=== PATIENT | female | born 1935 | race Caucasian/White ===

== ENCOUNTER 2017-10-14 21:53 | Observation (INO) | payer MEDICARE, OTHER ==
[~2017-10-14] VITALS: Ht 160 cm; Wt 71.8 kg
[~2017-10-14 21:53] MED LIST: ALBU90OI INH; AMLO5; AMLO5 PO; ASPI325EC; ASPI81CH PO; ATOR10; ATOR10 PO; CARV6.25 PO; Clonidine HCl0.1 MG PO; DILT120 PO; DOCSEN PO; ELIQUIS5 MG PO; ESOM20; ESOM20 PO; GABA100 PO; GI COCKTAIL; HYDACE10 PO; HYDACE5 PO; HYDHCL25 PO; Hydrochlorothia25 MG PO; IBUP600 PO; LAVAP17G PO; LEVFLO500 PO; LISI5 PO; Lasix40 MG PO; MAGOXI400 PO; METO25; METR500 PO; MULVITMINE; Micro-K10 MEQ PO; NITR.4SL SL; Omeprazole20 M1 PO; PARO20 PO; PARO25; PARO30 PO; POTCHL10ER; POTCHL20ER PO; PROM25 PO; QUININE; RABE20; RANI150; SPIR25 PO; TELM80 PO; Ultram50 MG PO; Verotin-Gr Cap1 EACH PO; Zithromax250 MG PO; [UNRECOGNIZED DRUG - CODE]
[2017-10-14 22:27] LABS: BASOPHILS ABSOLUTE AUTO 0.03 K/mm3 (0.00-0.23); BASOPHILS PERCENT AUTO 0 % (0-2); EOSINOPHILS PERCENT AUTO 3 % (0-6); Hematocrit 35.3 % (33.0-51.0); Hemoglobin 11.9 g/dL (11.5-16.0); IMMATURE GRAN ABSOLUTE AUTO 0.02 K/mm3 (0.00-0.10); IMMATURE GRAN PERCENT AUTO 0 % (0-1); LYMPHOCYTES ABSOLUTE AUTO 2.62 K/mm3 (0.84-5.20); LYMPHOCYTES PERCENT AUTO 38 % (21-46); MONOCYTES ABSOLUTE AUTO 0.72 K/mm3 (0.16-1.47); MONOCYTES PERCENT AUTO 11 % (4-13); Mean Corpuscular HGB 31.3 pg (26.0-34.0); Mean Corpuscular HGB Conc 33.7 g/dL (31.5-36.5); Mean Corpuscular Volume 93 fL (80-100); Mean Platelet Volume 9.8 fL (9.1-12.4); NEUTROPHILS ABSOLUTE AUTO 3.23 K/mm3 (1.96-9.15); NEUTROPHILS PERCENT AUTO 47 % (41-73); Platelet Count 134 K/mm3 (150-400); RDW Coefficient Variation 13.1 % (11.7-14.2); RDW Standard Deviation 44.2 fL (35.1-46.3); White Blood Cell Count 6.82 K/mm3 (4.00-11.30)
[2017-10-14 22:45] LABS: Alanine Aminotransfer (ALT/SGP 44 U/L (12-78); Albumin, Blood 3.4 g/dL (3.4-5.0); Albumin/Globulin Ratio 0.9 (0.8-1.8); Alk Phos 77 U/L (50-136); Anion Gap 10 mmol/L (6-16); Aspartate Aminotrans (AST/SGOT 38 U/L (12-37); Bilirubin, Total 0.3 mg/dL (0.1-1.0); Blood Urea Nitrogen 19 mg/dL (8-24); Bun/Creatinine Ratio 24.4 (12.0-20.0); CO2, Blood 26 mmol/L (21-32); Calcium, Blood 8.1 mg/dL (8.5-10.1); Chloride, Blood 105 mmol/L (98-108); Creatinine, Blood 0.78 mg/dL (0.40-1.00); Globulin, Blood 3.7 g/dL (2.2-4.0); Glomerular Filtration Rate >60 (60-); Glucose, Blood 150 mg/dL (70-99); Potassium, Blood 3.9 mmol/L (3.5-5.5); Sodium, Blood 141 mmol/L (136-145); Total Protein, Blood 7.1 g/dL (6.4-8.2); Troponin I <0.015 ng/mL (0.000-0.040)
[2017-10-14 23:17] LABS: Source, Urine Clean Catch
[2017-10-14 23:18] LABS: Bilirubin, Urine Neg (Neg); Blood, Urine 1+ (Neg); Glucose Qualitative, Urine Neg (Neg); Ketones, Urine Neg (Neg); Leukocyte Esterase, Urine 1+ (Neg); Nitrite, Urine Neg (Neg); Protein, Urine 1+ (Neg); Urobilinogen, Urine NORM (Normal)
[2017-10-14 23:21] LABS: Appearance, Urine Clear (Clear); Color, Urine Yellow (P-Yellow)
[2017-10-14 23:23] LABS: Red Blood Cells, Urine 0-2 /hpf (0-2); Squamous Epithelial Cells Few /hpf (Few)
[2017-10-14 23:24] LABS: Bacteria Few /hpf
[2017-10-15] MEDS ORDERED: HYDCHL25 PO (16:15)
[2017-10-17] MEDS ORDERED: LISI20 PO (09:59)
[2017-10-17] MEDS ORDERED: PAXIL40 MG PO (10:00)
[2017-10-17] MEDS ORDERED: URSO300 PO (10:00)
[2018-05-20] MEDS ORDERED: ELIQUIS5 MG PO (11:28)
[2018-05-20] MEDS ORDERED: Macrodantin100 MG PO (13:43)
[2018-07-04] MEDS ORDERED: VALA500 (04:33)
[2018-07-04] MEDS ORDERED: BUME1 PO (04:34)
[2018-07-04] MEDS ORDERED: ASPI81CH PO (04:34)
[2018-07-04] MEDS ORDERED: CLON.1 PO (04:34)
[2018-07-04] MEDS ORDERED: HYDCHL25 PO (04:35)
[2018-07-04] MEDS ORDERED: Oxybutynin Chlo10 MG PO (04:36)
[2018-07-04] MEDS ORDERED: OMEPRAZOLE DR 40 MG (04:36)
[2018-07-04] MEDS ORDERED: Zithromax250 MG PO (06:01)
== END 2017-10-15 18:45 | disposition home or self-care (01) ==
LOC: ER 21:53 → MEDS 21:54
PROVIDERS: Emergency Medicine
DX: R42 Dizziness and giddiness (principal); I16.0 Hypertensive urgency; I48.91 Unspecified atrial fibrillation; I25.10 Atherosclerotic heart disease of native coronary artery without angina pectoris; E78.5 Hyperlipidemia, unspecified; J44.9 Chronic obstructive pulmonary disease, unspecified; R26.89 Other abnormalities of gait and mobility; F41.9 Anxiety disorder, unspecified; G47.33 Obstructive sleep apnea (adult) (pediatric); Z99.89 Dependence on other enabling machines and devices; Z88.0 Allergy status to penicillin; Z88.1 Allergy status to other antibiotic agents; Z88.2 Allergy status to sulfonamides; Z88.8 Allergy status to other drugs, medicaments and biological substances; Z88.6 Allergy status to analgesic agent; Z79.82 Long term (current) use of aspirin; Z79.899 Other long term (current) drug therapy; Z87.891 Personal history of nicotine dependence
CPT/HCPCS: 70450; 80053; 81001; 82947; 84484; 85025; 87086; 93005; 93010; 96374; 96376; 99285; G0378; J0360

== ENCOUNTER → 2018-01-07 | Outpatient (CLI) | payer MEDICARE, OTHER ==
[~2018-01-07] MED LIST changes: +HYDCHL25 PO; +LISI20 PO; +PAXIL40 MG PO; +URSO300 PO
[2018-01-07 11:58] LABS: BASOPHILS ABSOLUTE AUTO 0.02 K/mm3 (0.00-0.23); BASOPHILS PERCENT AUTO 0 % (0-2); EOSINOPHILS ABSOLUTE AUTO 0.19 K/mm3 (0.00-0.68); EOSINOPHILS PERCENT AUTO 3 % (0-6); Hematocrit 35.5 % (33.0-51.0); Hemoglobin 12.2 g/dL (11.5-16.0); IMMATURE GRAN ABSOLUTE AUTO 0.02 K/mm3 (0.00-0.10); IMMATURE GRAN PERCENT AUTO 0 % (0-1); LYMPHOCYTES ABSOLUTE AUTO 2.48 K/mm3 (0.84-5.20); LYMPHOCYTES PERCENT AUTO 41 % (21-46); MONOCYTES ABSOLUTE AUTO 0.64 K/mm3 (0.16-1.47); MONOCYTES PERCENT AUTO 11 % (4-13); Mean Corpuscular HGB 31.4 pg (26.0-34.0); Mean Corpuscular HGB Conc 34.4 g/dL (31.5-36.5); Mean Corpuscular Volume 91 fL (80-100); Mean Platelet Volume 10.4 fL (9.1-12.4); NEUTROPHILS ABSOLUTE AUTO 2.77 K/mm3 (1.96-9.15); NEUTROPHILS PERCENT AUTO 45 % (41-73); Platelet Count 124 K/mm3 (150-400); RDW Coefficient Variation 12.8 % (11.7-14.2); RDW Standard Deviation 41.8 fL (35.1-46.3); Red Blood Cell Count 3.89 M/mm3 (3.80-5.20); White Blood Cell Count 6.12 K/mm3 (4.00-11.30)
[2018-01-07 12:13] LABS: Alanine Aminotransfer (ALT/SGP 33 U/L (12-78); Albumin, Blood 3.5 g/dL (3.4-5.0); Alk Phos 60 U/L (40-126); Anion Gap 6 mmol/L (6-16); Aspartate Aminotrans (AST/SGOT 31 U/L (12-37); Bilirubin, Total 0.6 mg/dL (0.1-1.0); Blood Urea Nitrogen 62 mg/dL (8-24); Bun/Creatinine Ratio 34.4 (12.0-20.0); CO2, Blood 32 mmol/L (21-32); Calcium, Blood 7.9 mg/dL (8.5-10.1); Chloride, Blood 100 mmol/L (98-108); Globulin, Blood 3.5 g/dL (2.2-4.0); Glomerular Filtration Rate 27 (60-); Glucose, Blood 148 mg/dL (70-99); Sodium, Blood 138 mmol/L (136-145); Troponin I <0.017 ng/mL (0.000-0.040)
== END ==
LOC: LAB EV 11:50 → LAB SHORT 11:50
PROVIDERS: Family Medicine
DX: I95.9 Hypotension, unspecified (principal); N39.0 Urinary tract infection, site not specified
CPT/HCPCS: 80053; 83880; 84484; 85025

== ENCOUNTER 2018-01-15 13:29 | Emergency (ER) | payer MEDICARE, OTHER ==
[~2018-01-15] VITALS: Ht 160 cm; Wt 67.6 kg
[2018-01-15 13:58] LABS: BASOPHILS ABSOLUTE AUTO 0.03 K/mm3 (0.00-0.23); BASOPHILS PERCENT AUTO 0 % (0-2); EOSINOPHILS ABSOLUTE AUTO 0.22 K/mm3 (0.00-0.68); EOSINOPHILS PERCENT AUTO 3 % (0-6); Hematocrit 40.9 % (33.0-51.0); Hemoglobin 13.6 g/dL (11.5-16.0); IMMATURE GRAN ABSOLUTE AUTO 0.01 K/mm3 (0.00-0.10); IMMATURE GRAN PERCENT AUTO 0 % (0-1); LYMPHOCYTES ABSOLUTE AUTO 3.06 K/mm3 (0.84-5.20); LYMPHOCYTES PERCENT AUTO 40 % (21-46); MONOCYTES ABSOLUTE AUTO 0.59 K/mm3 (0.16-1.47); MONOCYTES PERCENT AUTO 8 % (4-13); Mean Corpuscular HGB 31.4 pg (26.0-34.0); Mean Corpuscular HGB Conc 33.3 g/dL (31.5-36.5); Mean Platelet Volume 10.3 fL (9.1-12.4); NEUTROPHILS PERCENT AUTO 49 % (41-73); Platelet Count 149 K/mm3 (150-400); RDW Coefficient Variation 12.7 % (11.7-14.2); RDW Standard Deviation 43.8 fL (35.1-46.3); Red Blood Cell Count 4.33 M/mm3 (3.80-5.20); White Blood Cell Count 7.71 K/mm3 (4.00-11.30)
[2018-01-15 13:59] LABS: Mean Corpuscular Volume 95 fL (80-100)
[2018-01-15 14:05] LABS: Alanine Aminotransfer (ALT/SGP 37 U/L (12-78); Albumin, Blood 3.9 g/dL (3.4-5.0); Albumin/Globulin Ratio 1.1 (0.8-1.8); Alk Phos 60 U/L (50-136); Anion Gap 11 mmol/L (6-16); Aspartate Aminotrans (AST/SGOT 41 U/L (12-37); Bilirubin, Total 0.8 mg/dL (0.1-1.0); Blood Urea Nitrogen 40 mg/dL (8-24); Bun/Creatinine Ratio 33.9 (12.0-20.0); CO2, Blood 24 mmol/L (21-32); Calcium, Blood 7.9 mg/dL (8.5-10.1); Chloride, Blood 106 mmol/L (98-108); Creatinine, Blood 1.18 mg/dL (0.40-1.00); Globulin, Blood 3.6 g/dL (2.2-4.0); Glomerular Filtration Rate 46 (60-); Glucose, Blood 174 mg/dL (70-99); Potassium, Blood 3.8 mmol/L (3.5-5.5); Sodium, Blood 141 mmol/L (136-145); Total Protein, Blood 7.5 g/dL (6.4-8.2)
[2018-01-15 14:38] LABS: Troponin I <0.015 ng/mL (0.000-0.040)
== END 2018-01-15 16:25 | disposition home or self-care (01) ==
LOC: ER 13:29
PROVIDERS: Emergency Medicine
DX: R53.1 Weakness (principal); J44.9 Chronic obstructive pulmonary disease, unspecified; I10 Essential (primary) hypertension; F41.9 Anxiety disorder, unspecified; Z87.891 Personal history of nicotine dependence; Z88.0 Allergy status to penicillin; Z88.8 Allergy status to other drugs, medicaments and biological substances; Z88.1 Allergy status to other antibiotic agents; Z88.2 Allergy status to sulfonamides; Z88.5 Allergy status to narcotic agent; Z79.899 Other long term (current) drug therapy; Z79.82 Long term (current) use of aspirin
CPT/HCPCS: 36415; 80053; 84484; 85025; 93005; 93010; 99284; J7120

== ENCOUNTER 2018-08-18 15:11 | Emergency (ER) | payer MEDICARE, OTHER ==
[~2018-08-18] VITALS: Ht 162.6 cm; Wt 66.7 kg
[~2018-08-18 15:11] MED LIST changes: +BUME1 PO; +CLON.1 PO; +Macrodantin100 MG PO; +OMEPRAZOLE DR 40 MG; +Oxybutynin Chlo10 MG PO; +VALA500
[2018-08-18] MEDS ORDERED: GABA100 PO (15:37)
[2018-08-18] MEDS ORDERED: OMEPRAZOLE MAGN20 MG PO (15:39)
[2018-08-18 15:43] LABS: BASOPHILS ABSOLUTE AUTO 0.04 K/mm3 (0.00-0.23); BASOPHILS PERCENT AUTO 0 % (0-2); EOSINOPHILS ABSOLUTE AUTO 0.05 K/mm3 (0.00-0.68); EOSINOPHILS PERCENT AUTO 1 % (0-6); Hemoglobin 13.6 g/dL (11.5-16.0); IMMATURE GRAN ABSOLUTE AUTO 0.03 K/mm3 (0.00-0.10); IMMATURE GRAN PERCENT AUTO 0 % (0-1); LYMPHOCYTES ABSOLUTE AUTO 2.84 K/mm3 (0.84-5.20); LYMPHOCYTES PERCENT AUTO 27 % (21-46); MONOCYTES ABSOLUTE AUTO 0.89 K/mm3 (0.16-1.47); MONOCYTES PERCENT AUTO 9 % (4-13); Mean Corpuscular HGB Conc 33.2 g/dL (31.5-36.5); Mean Corpuscular Volume 97 fL (80-100); Mean Platelet Volume 10.6 fL (9.1-12.4); NEUTROPHILS ABSOLUTE AUTO 6.63 K/mm3 (1.96-9.15); NEUTROPHILS PERCENT AUTO 63 % (41-73); Platelet Count 151 K/mm3 (150-400); RDW Coefficient Variation 13.3 % (11.7-14.2); RDW Standard Deviation 47.2 fL (35.1-46.3); Red Blood Cell Count 4.25 M/mm3 (3.80-5.20); White Blood Cell Count 10.48 K/mm3 (4.00-11.30)
[2018-08-18 15:54] LABS: Albumin, Blood 3.8 g/dL (3.4-5.0); Bilirubin, Total 1.1 mg/dL (0.1-1.0); Bun/Creatinine Ratio 22.7 (12.0-20.0); Calcium, Blood 8.1 mg/dL (8.5-10.1); Creatinine, Blood 1.1 mg/dL (0.40-1.00); Globulin, Blood 3.7 g/dL (2.2-4.0); Potassium, Blood 3.6 mmol/L (3.5-5.5); Total Protein, Blood 7.5 g/dL (6.4-8.2)
[2018-08-18] MEDS ORDERED: DIAZ2 PO (17:04)
== END 2018-08-18 17:25 | disposition home or self-care (01) ==
LOC: ER 15:11
PROVIDERS: Emergency Medicine
DX: S09.90XA Unspecified injury of head, initial encounter (principal); G25.81 Restless legs syndrome; I10 Essential (primary) hypertension; F41.9 Anxiety disorder, unspecified; J44.9 Chronic obstructive pulmonary disease, unspecified; J45.909 Unspecified asthma, uncomplicated; Z88.0 Allergy status to penicillin; Z88.1 Allergy status to other antibiotic agents; Z88.6 Allergy status to analgesic agent; Z88.2 Allergy status to sulfonamides; Z88.8 Allergy status to other drugs, medicaments and biological substances; Z79.82 Long term (current) use of aspirin; Z79.899 Other long term (current) drug therapy; Z79.2 Long term (current) use of antibiotics; Z87.891 Personal history of nicotine dependence; W19.XXXA Unspecified fall, initial encounter
CPT/HCPCS: 70450; 80053; 85025; 93005; 93010; 99284-25

== ENCOUNTER 2018-08-24 14:39 | Inpatient (IN) | payer MEDICARE, OTHER ==
[~2018-08-24] VITALS: Ht 160 cm; Wt 65.0 kg
[~2018-08-24 14:39] MED LIST changes: +DIAZ2 PO; +OMEPRAZOLE MAGN20 MG PO
[2018-08-24 15:27] LABS: BASOPHILS ABSOLUTE AUTO 0.03 K/mm3 (0.00-0.23); BASOPHILS PERCENT AUTO 0 % (0-2); EOSINOPHILS ABSOLUTE AUTO 0.15 K/mm3 (0.00-0.68); EOSINOPHILS PERCENT AUTO 2 % (0-6); Hematocrit 36.7 % (33.0-51.0); Hemoglobin 12.1 g/dL (11.5-16.0); IMMATURE GRAN ABSOLUTE AUTO 0.01 K/mm3 (0.00-0.10); IMMATURE GRAN PERCENT AUTO 0 % (0-1); LYMPHOCYTES PERCENT AUTO 27 % (21-46); MONOCYTES ABSOLUTE AUTO 0.71 K/mm3 (0.16-1.47); MONOCYTES PERCENT AUTO 9 % (4-13); Mean Corpuscular HGB 31.9 pg (26.0-34.0); Mean Corpuscular Volume 97 fL (80-100); Mean Platelet Volume 9.9 fL (9.1-12.4); NEUTROPHILS ABSOLUTE AUTO 4.73 K/mm3 (1.96-9.15); NEUTROPHILS PERCENT AUTO 61 % (41-73); Platelet Count 132 K/mm3 (150-400); RDW Coefficient Variation 13.2 % (11.7-14.2); RDW Standard Deviation 46.8 fL (35.1-46.3); Red Blood Cell Count 3.79 M/mm3 (3.80-5.20); White Blood Cell Count 7.73 K/mm3 (4.00-11.30)
[2018-08-24 15:46] LABS: Alanine Aminotransfer (ALT/SGP 24 U/L (12-78); Albumin, Blood 3.3 g/dL (3.4-5.0); Alk Phos 51 U/L (50-136); Anion Gap 8 mmol/L (6-16); Aspartate Aminotrans (AST/SGOT 26 U/L (12-37); Bilirubin, Total 0.8 mg/dL (0.1-1.0); Blood Urea Nitrogen 19 mg/dL (8-24); Bun/Creatinine Ratio 22.8 (12.0-20.0); CO2, Blood 27 mmol/L (21-32); Chloride, Blood 106 mmol/L (98-108); Creatinine, Blood 0.84 mg/dL (0.40-1.00); Globulin, Blood 3.4 g/dL (2.2-4.0); Glomerular Filtration Rate >60 (60-); Glucose, Blood 92 mg/dL (70-99); Potassium, Blood 4.2 mmol/L (3.5-5.5); Sodium, Blood 141 mmol/L (136-145); Total Protein, Blood 6.7 g/dL (6.4-8.2); Troponin I <0.015 ng/mL (0.000-0.040)
[2018-08-24 15:55] LABS: Base Excess Venous 4.9 mmol/L; Bicarbonate Venous 28.2 mmol/L (24.0-30.0); PCO2 Venous 43.4 mmHg (38-42); PO2 Venous 71.9 mmHg (38-42); pH Blood Venous 7.43 (7.34-7.37)
[2018-08-24] MEDS ORDERED: MECL12.5 PO (21:59)
[2018-08-25 00:39] LABS: Source, Urine Clean Catch
[2018-08-25 00:41] LABS: Bilirubin, Urine Neg (Neg); Blood, Urine Neg (Neg); Glucose Qualitative, Urine Neg (Neg); Ketones, Urine Neg (Neg); Leukocyte Esterase, Urine 1+ (Neg); Nitrite, Urine Neg (Neg); Protein, Urine Neg (Neg); Urobilinogen, Urine NORM (Normal)
[2018-08-25 00:57] LABS: Appearance, Urine Clear (Clear); Color, Urine Yellow (P-Yellow)
[2018-08-25 00:58] LABS: Bacteria Rare /hpf; Red Blood Cells, Urine Rare /hpf (0-2); Squamous Epithelial Cells Few /hpf (Few); White Blood Cells, Urine Rare /hpf (0-5)
--- NOTE | 2018-08-25 01:23 | NUR ---
*LATE ENTRY* PT TO ROOM @2125. BP UPON ADMISSION TO FLOOR WAS 198/80. ONCE TELE PLACED @2215 NEEL Hou CALLED TO NOTIFY ME PTS RHYTHM WAS A. FIB W/HR 140-150'S & HAD BEEN LIKE THAT FOR ROUGHLY 10MIN. VITALS WERE RECHECKED & PT HAD A VEW SCORE OF 4. HOSPITALIST SMITA WAS NOTIFIED @2230. COREG & LOPRESSOR WERE GIVEN PER ORDERS @2300. HR DROPPED TO 130'S PER TELE SHIRT FOLDING MACHINE OPERATOR @2330. ANOTHER 5MG LOPRESSOR WAS GIVEN @2400 PER ORDERS. @2345 PT WAS A.FIB W/HR 115 PER TELE SHIRT FOLDING MACHINE OPERATOR. WILL CONT TO MONITOR HR/RHYTHM & NOTIFY HOSPITALIST IF ANY FURTHER CHANGES OCCUR.
[2018-08-25 03:21] LABS: BASOPHILS ABSOLUTE AUTO 0.02 K/mm3 (0.00-0.23); BASOPHILS PERCENT AUTO 0 % (0-2); EOSINOPHILS ABSOLUTE AUTO 0.04 K/mm3 (0.00-0.68); EOSINOPHILS PERCENT AUTO 1 % (0-6); Hematocrit 38.7 % (33.0-51.0); Hemoglobin 12.8 g/dL (11.5-16.0); IMMATURE GRAN ABSOLUTE AUTO 0.03 K/mm3 (0.00-0.10); IMMATURE GRAN PERCENT AUTO 0 % (0-1); LYMPHOCYTES ABSOLUTE AUTO 1.12 K/mm3 (0.84-5.20); LYMPHOCYTES PERCENT AUTO 16 % (21-46); MONOCYTES ABSOLUTE AUTO 0.23 K/mm3 (0.16-1.47); MONOCYTES PERCENT AUTO 3 % (4-13); Mean Corpuscular HGB Conc 33.1 g/dL (31.5-36.5); Mean Corpuscular Volume 97 fL (80-100); NEUTROPHILS ABSOLUTE AUTO 5.73 K/mm3 (1.96-9.15); NEUTROPHILS PERCENT AUTO 80 % (41-73); Platelet Count 136 K/mm3 (150-400); RDW Coefficient Variation 13.2 % (11.7-14.2); RDW Standard Deviation 47.1 fL (35.1-46.3); White Blood Cell Count 7.17 K/mm3 (4.00-11.30)
[2018-08-25 03:36] LABS: Calcium, Blood 8.3 mg/dL (8.5-10.1); Potassium, Blood 4.1 mmol/L (3.5-5.5)
--- NOTE | 2018-08-25 06:33 | NUR ---
SHIFT SUMMARY PT HAS SLEPT ON/OFF SINCE 0000. AOX4, PLEASANT & COOPERATIVE, DOES APPEAR ANXIOUS @TIMES. PT DENIES N/V. REPORTED HEADACHE LAST NIGHT & WAS MEDICATED 1X W/TYLENOL PER ORDERS. REPORTS SOB, YET PT SITS RELAXED & BREATHING IS E/U W/SPO2 @96% ON 1.5L O2. THIS AM @0555 PER TELE SAP BPC DEVELOPER PT IS A. FIB W/HR 116, READ PREVIOUS NOTE ABOUT HR. BP IS DOWN TO 92/64 @0220, RECHECKED BP @0600 & IS 110/82. CALL LIGHT IS IN REACH & PT USES APPROPRIATELY. WILL CONT. TO MONITOR PT UNTIL DAY SHIFT RN ASSUMES CARE.
--- NOTE | 2018-08-25 13:03 | NUR ---
TELE PER MUSIC CATALOGUERSHANI VACA, PT WAS IN A-FIB THIS MORNING WITH RATE OF 120, THEN PT CONVERTED TO NSR IN 90'S. THEN AT 0944 PT HR DROPPED TO 54 BPM. NURSE IN IMMEDIATELY TO ASSESS PT WHO WAS ASLEEP. PT NSR AT 64 AT THIS TIME PER MUSIC CATALOGUERDR MERLENE VACA AWARE AT THIS TIME.
--- NOTE | 2018-08-25 17:13 | NUR ---
CONSENT TO PROVIDE CARE PATIENT GIVES THIS STUDENT RN CONSENT TO PROVIDE CARE ON 08/26/18
--- NOTE | 2018-08-25 18:43 | NUR ---
SHIFT SUMMARY PT AXO, PLEASANT AND COOPERATIVE WITH CARE THOUGH PT CALLED FREQUENTLY. PT WAS UP TO BSC WITH URGE TO VOID BUT WAS UNABLE TO VOID X3. BLADDER SCAN REVEALED 275ML IN BLADDER. PT WAS ABLE TO VOID THEN AT 1028, 300ML OUT. PT INCONTINENT IN ATTENDS MULTIPLE TIMES THIS SHIFT. BED IN LOW POSITION, CALL LIGHT WITHIN REACH. SBA TO BSC. NO OTHER CHANGES THIS SHIFT. PT DENIES PAIN, SOB AND NV. IV PATENT AND SALINE LOCKED.
--- NOTE | 2018-08-26 03:25 | NUR ---
CHANGE IN HR/RHYTHM *LATE ENTRY* AT 0015 THE TELE INTELLIGENCE ENGINEER INFORMED ME PT HAD A 13 SEC. RUN OF V. TACH W/HR UP TO 150 & HAD SINCE CONVERTED BACK TO NSR W/HR 64. I CHECKED ON PT & SHE WAS SLEEPING COMFORTABLY. VITALS WERE CHECKED: T 98.1, HR 66, BP 147/61, SPO2 @94% ON RA & RR OF 21. DR ALDRIDGE WAS NOTIFIED @0040, NO NEW ORDERS AT THIS TIME.
--- NOTE | 2018-08-26 07:44 | NUR ---
SHIFT SUMMARY PT SLEPT WELL T/O NIGHT. AOX4. DENIES N/V & SOB, SHE HAS BEEN ON RA ALL NIGHT. REPORTED MILD HEADACHE & LEG PAIN LAST NIGHT & WAS MEDICATED W/TYLENOL PER ORDERS. PT HAS BEEN NPO SINCE MIDNIGHT FOR STRESS TEST THIS AM. LAST NIGHT PT HAD A CHANGE IN HR & RHYTHM, READ PREVIOUS NOTE, OTHERWISE VSS. CALL LIGHT IN REACH.
--- NOTE | 2018-08-26 13:47 | NUR ---
Patient was lying in bed and alert when I entered the room. I introduced myself and was welcomed by the patient to come in and have a seat. Patient told me that she was having a stress test done today and she was nervous about the results. I conducted a life review, explored sources of meaning and her flory, provided anxiety containment and normalized her experience. Patient responded well to these interventions and displayed evidence of reduced stress. Patient thanked me for the visit and asked if I could return next day for another visit.
--- NOTE | 2018-08-26 19:30 | NUR ---
SHIFT SUMMARY: NO ACUTE CHANGES TO REPORT THIS SHIFT. PT A&O; CALM AND COOPERATIVE WITH CARE. MEDICATED FOR PAIN EPR EMAR. TELE IN PLACE; SINUS BRADYCARDIA @ 57 PER NURSING ADMINISTRATOR DURING MORNING ASSESSMENT. PT HX DVT; SCDs & XARELTO. LEXISCAN PLANNED FOR 08/27; PT NPO AFTER MIDNIGHT. REPORT GIVEN TO ONCOMING RN.
[2018-08-27 06:16] LABS: Adenovirus Not Detected (NOT DETECT); Bordetella pertussis Not Detected (NOT DETECT); Chlamydophila pneumoniae Not Detected (NOT DETECT); Coronavirus 229E Not Detected (NOT DETECT); Coronavirus HKU1 Not Detected (NOT DETECT); Coronavirus NL63 Not Detected (NOT DETECT); Coronavirus OC43 Not Detected (NOT DETECT); Human Metapneumovirus Not Detected (NOT DETECT); Human Rhinovirus/Enterovirus Not Detected (NOT DETECT); Influenza A Not Detected (NOT DETECT); Influenza A/2009-H1 Not Detected (NOT DETECT); Influenza A/H1 Not Detected (NOT DETECT); Influenza A/H3 Not Detected (NOT DETECT); Influenza B Not Detected (NOT DETECT); Mycoplasma pneumoniae Not Detected (NOT DETECT); Parainfluenza Virus 1 Not Detected (NOT DETECT); Parainfluenza Virus 2 Not Detected (NOT DETECT); Parainfluenza Virus 3 Not Detected (NOT DETECT); Parainfluenza Virus 4 Not Detected (NOT DETECT); Respiratory Syncytial Virus Not Detected (NOT DETECT)
--- NOTE | 2018-08-27 06:50 | NUR ---
08/27/18 0630 CHEERFUL ALL SHIFT. VITALS REMAIN STABLE. NPO AFTER MIDNIGHT FOR STRESS TEST TODAY. SIPS OF WATER GIVEN WITH AM MED. ASSISTED UP TO BR SEVERAL TIMES FOR QS VOIDING. NO BMS NOTED YET.
[2018-08-27] MEDS ORDERED: ACET325 PO (15:10)
[2018-08-27] MEDS ORDERED: ASPI81CH PO (15:11)
[2018-08-27] MEDS ORDERED: CLON.1 PO (15:11)
--- NOTE | 2018-08-27 16:28 | NUR ---
PATIENT DISCHARGE: PATIENT DISCHARGED TO HOME THIS SHIFT. MEDICATION RECONCILIATION COMPLETED; MED LS[facility] FAXED TO [facility]. DISCHARGE EDUCATION COMPLETED WITH PATIENT. PATIENT TRANSPORTED TO EXIT BY [facility] STAFF WITH WHEELCHAIR AT 1625. PATIENT DEPARTED [facility] VIA PRIVATE AUTO.
== END 2018-08-27 16:50 | disposition home or self-care (01) | DRG 291 ==
LOC: ER 14:39 → MEDS 18:47
PROVIDERS: Emergency Medicine; Nurse Practitioner Acute Care; ADMIT Family Medicine
DX: I13.0 Hypertensive heart and chronic kidney disease with heart failure and stage 1 through stage 4 chronic kidney disease, or unspecified chronic kidney disease (principal); J96.01 Acute respiratory failure with hypoxia; I50.33 Acute on chronic diastolic (congestive) heart failure; J18.9 Pneumonia, unspecified organism; R42 Dizziness and giddiness; F41.9 Anxiety disorder, unspecified; M19.90 Unspecified osteoarthritis, unspecified site; Z79.82 Long term (current) use of aspirin; Z66 Do not resuscitate; I16.0 Hypertensive urgency; Z86.718 Personal history of other venous thrombosis and embolism; M79.2 Neuralgia and neuritis, unspecified; E78.5 Hyperlipidemia, unspecified; D69.6 Thrombocytopenia, unspecified; Z87.891 Personal history of nicotine dependence; I25.10 Atherosclerotic heart disease of native coronary artery without angina pectoris; I35.0 Nonrheumatic aortic (valve) stenosis
CPT/HCPCS: 36415; 71046; 78452; 80048; 80053; 80061; 81001; 82803; 83036; 83690; 83735; 83880; 84145; 84484; 85025; 87070; 87205; 87486; 87581; 87633; 87798; 93005; 93010; 93017; 93306; 94640; 94760; 96374; 96375; 99285-25; A9500; J0360; J0706; J1940; J1956; J2785; J2930; J7050

== ENCOUNTER → 2018-10-05 | Outpatient (CLI) | payer MEDICARE, OTHER ==
[~2018-10-05] MED LIST changes: +ACET325 PO; +MECL12.5 PO
[2018-10-05 15:01] LABS: BASOPHILS ABSOLUTE AUTO 0.02 K/mm3 (0.00-0.23); BASOPHILS PERCENT AUTO 0 % (0-2); EOSINOPHILS ABSOLUTE AUTO 0.14 K/mm3 (0.00-0.68); EOSINOPHILS PERCENT AUTO 3 % (0-6); Hematocrit 33.2 % (33.0-51.0); Hemoglobin 11.1 g/dL (11.5-16.0); IMMATURE GRAN ABSOLUTE AUTO 0.03 K/mm3 (0.00-0.10); IMMATURE GRAN PERCENT AUTO 1 % (0-1); LYMPHOCYTES ABSOLUTE AUTO 2.01 K/mm3 (0.84-5.20); LYMPHOCYTES PERCENT AUTO 36 % (21-46); MONOCYTES ABSOLUTE AUTO 0.45 K/mm3 (0.16-1.47); MONOCYTES PERCENT AUTO 8 % (4-13); Mean Corpuscular HGB 31.6 pg (26.0-34.0); Mean Corpuscular HGB Conc 33.4 g/dL (31.5-36.5); Mean Corpuscular Volume 95 fL (80-100); NEUTROPHILS ABSOLUTE AUTO 2.96 K/mm3 (1.96-9.15); NEUTROPHILS PERCENT AUTO 53 % (41-73); RDW Coefficient Variation 13.3 % (11.7-14.2); RDW Standard Deviation 45.6 fL (35.1-46.3); Red Blood Cell Count 3.51 M/mm3 (3.80-5.20); White Blood Cell Count 5.61 K/mm3 (4.00-11.30)
[2018-10-05 15:11] LABS: Albumin, Blood 3.5 g/dL (3.4-5.0); Albumin/Globulin Ratio 1.1 (0.8-1.8); Bilirubin, Total 0.5 mg/dL (0.1-1.0); Bun/Creatinine Ratio 24.5 (12.0-20.0); Calcium, Blood 7.9 mg/dL (8.5-10.1); Creatinine, Blood 0.98 mg/dL (0.40-1.00); Globulin, Blood 3.1 g/dL (2.2-4.0); Potassium, Blood 3.9 mmol/L (3.5-5.5); Total Protein, Blood 6.6 g/dL (6.4-8.2)
[2018-10-05 15:12] LABS: Mean Platelet Volume 10.2 fL (9.1-12.4)
[2018-10-05 16:00] LABS: Platelet Count 110 K/mm3 (150-400)
== END | disposition home or self-care (01) ==
LOC: LAB SHORT 14:53 → LAB EV 14:53
PROVIDERS: Physician Assistant
DX: R06.02 Shortness of breath (principal)
CPT/HCPCS: 80053; 83880; 85025

== ENCOUNTER 2018-11-15 09:17 | Day surgery (SDC) | payer MEDICARE, OTHER ==
[~2018-11-15] VITALS: Ht 162.6 cm; Wt 68.0 kg
== END 2018-11-15 10:47 | disposition home or self-care (01) ==
LOC: ORSCSDS 09:17
PROVIDERS: Anesthesiology
PROC: 3E0R33Z Introduction of Anti-inflammatory into Spinal Canal, Percutaneous Approach (ICD-10-PCS; principal; 2018-11-15 10:30)
DX: M96.1 Postlaminectomy syndrome, not elsewhere classified (principal); M54.16 Radiculopathy, lumbar region; M48.061 Spinal stenosis, lumbar region without neurogenic claudication; I10 Essential (primary) hypertension; I25.10 Atherosclerotic heart disease of native coronary artery without angina pectoris; E78.00 Pure hypercholesterolemia, unspecified; Z86.73 Personal history of transient ischemic attack (TIA), and cerebral infarction without residual deficits; K21.9 Gastro-esophageal reflux disease without esophagitis; F32.9 Major depressive disorder, single episode, unspecified; J45.909 Unspecified asthma, uncomplicated; G47.33 Obstructive sleep apnea (adult) (pediatric); Z87.891 Personal history of nicotine dependence; Z79.01 Long term (current) use of anticoagulants; Z79.899 Other long term (current) drug therapy
CPT/HCPCS: J1040

== ENCOUNTER → 2018-11-22 | Outpatient (CLI) | payer MEDICARE, OTHER ==
[2018-11-22 11:28] LABS: BASOPHILS ABSOLUTE AUTO 0.02 K/mm3 (0.00-0.23); BASOPHILS PERCENT AUTO 0 % (0-2); EOSINOPHILS ABSOLUTE AUTO 0.16 K/mm3 (0.00-0.68); EOSINOPHILS PERCENT AUTO 2 % (0-6); Hematocrit 36.6 % (33.0-51.0); Hemoglobin 11.9 g/dL (11.5-16.0); IMMATURE GRAN ABSOLUTE AUTO 0.02 K/mm3 (0.00-0.10); IMMATURE GRAN PERCENT AUTO 0 % (0-1); LYMPHOCYTES ABSOLUTE AUTO 2.43 K/mm3 (0.84-5.20); LYMPHOCYTES PERCENT AUTO 35 % (21-46); MONOCYTES ABSOLUTE AUTO 0.69 K/mm3 (0.16-1.47); MONOCYTES PERCENT AUTO 10 % (4-13); Mean Corpuscular HGB 30.3 pg (26.0-34.0); Mean Corpuscular HGB Conc 32.5 g/dL (31.5-36.5); Mean Corpuscular Volume 93 fL (80-100); Mean Platelet Volume 9.7 fL (9.1-12.4); NEUTROPHILS ABSOLUTE AUTO 3.71 K/mm3 (1.96-9.15); NEUTROPHILS PERCENT AUTO 53 % (41-73); Platelet Count 147 K/mm3 (150-400); RDW Coefficient Variation 12.8 % (11.7-14.2); RDW Standard Deviation 43.9 fL (35.1-46.3); Red Blood Cell Count 3.93 M/mm3 (3.80-5.20); White Blood Cell Count 7.03 K/mm3 (4.00-11.30)
[2018-11-22 11:40] LABS: Anion Gap 8 mmol/L (6-16); Blood Urea Nitrogen 27 mg/dL (8-24); CO2, Blood 27 mmol/L (21-32); Calcium, Blood 7.9 mg/dL (8.5-10.1); Chloride, Blood 102 mmol/L (98-108); Glomerular Filtration Rate 53 (60-); Glucose, Blood 110 mg/dL (70-99); Potassium, Blood 3.8 mmol/L (3.5-5.5); Sodium, Blood 137 mmol/L (136-145)
[2018-11-22 11:42] LABS: Troponin I <0.017 ng/mL (0.000-0.040)
== END ==
LOC: LAB SHORT 11:23 → LAB EV 11:23
PROVIDERS: Nurse Practitioner
DX: R42 Dizziness and giddiness (principal)
CPT/HCPCS: 80048; 84484; 85025

== ENCOUNTER 2018-12-25 11:16 | Day surgery (SDC) | payer MEDICARE, OTHER ==
[~2018-12-25] VITALS: Ht 162.6 cm; Wt 69.1 kg
--- NOTE | 2018-12-25 12:21 | NUR ---
12/25/18 1221 Cathy Mackey WHEN PT WENT TO STAND UP UPON DISCHARGE SHE COMPLAINED OF SOME NUMBNESS IN HER L FOOT. SHE STATES SHE ALWAYS STAGGERS BUT THE FEELING IS MORE INTENSE RIGHT NOW. SHE WAS WALKED TO THE SDU FOR OBSERVATION AND DR WREN WAS NOTIFIED.
[2019-03-06] MEDS ORDERED: CARV3.125 PO (11:51)
[2019-03-06] MEDS ORDERED: CLON.1 PO (11:52)
[2019-03-06] MEDS ORDERED: Nitroglycerin0.4 MG SL (11:52)
[2019-03-06] MEDS ORDERED: FURO40 PO (11:52)
[2019-03-06] MEDS ORDERED: PROAIR RESPICL90 MCG INH (11:53)
[2019-03-06] MEDS ORDERED: PAXIL40 MG PO (11:53)
[2019-03-06] MEDS ORDERED: Prilosec Otc20 MG PO (11:53)
[2019-03-06] MEDS ORDERED: POTCHL20ER PO (11:54)
[2019-03-06] MEDS ORDERED: SPIR25 PO (11:54)
[2019-03-06] MEDS ORDERED: Oxybutynin Chlo10 MG PO (11:54)
[2019-03-06] MEDS ORDERED: VALACYCLOVIR500 MG PO (11:54)
[2019-03-06] MEDS ORDERED: ACET325 PO (11:55)
== END 2018-12-25 12:14 | disposition home or self-care (01) ==
LOC: ORSCSDS 11:16
PROVIDERS: Anesthesiology
PROC: 3E0R33Z Introduction of Anti-inflammatory into Spinal Canal, Percutaneous Approach (ICD-10-PCS; principal; 2018-12-25 12:00)
DX: M96.1 Postlaminectomy syndrome, not elsewhere classified (principal); M48.061 Spinal stenosis, lumbar region without neurogenic claudication; I25.10 Atherosclerotic heart disease of native coronary artery without angina pectoris; I10 Essential (primary) hypertension; G47.33 Obstructive sleep apnea (adult) (pediatric); Z86.73 Personal history of transient ischemic attack (TIA), and cerebral infarction without residual deficits; Z79.899 Other long term (current) drug therapy
CPT/HCPCS: J1040

== ENCOUNTER 2019-03-14 10:25 | Day surgery (SDC) | payer MEDICARE, OTHER ==
[~2019-03-14] VITALS: Ht 162.6 cm; Wt 69.8 kg
[~2019-03-14 10:25] MED LIST changes: +CARV3.125 PO; +FURO40 PO; +Nitroglycerin0.4 MG SL; +PROAIR RESPICL90 MCG INH; +Prilosec Otc20 MG PO; +VALACYCLOVIR500 MG PO
== END 2019-03-14 11:57 | disposition home or self-care (01) ==
LOC: ORSCSDS 10:25
PROVIDERS: Anesthesiology
PROC: 3E0R33Z Introduction of Anti-inflammatory into Spinal Canal, Percutaneous Approach (ICD-10-PCS; principal; 2019-03-14 11:00)
DX: M54.16 Radiculopathy, lumbar region (principal); M48.061 Spinal stenosis, lumbar region without neurogenic claudication; I10 Essential (primary) hypertension; J45.909 Unspecified asthma, uncomplicated; G47.33 Obstructive sleep apnea (adult) (pediatric); E78.00 Pure hypercholesterolemia, unspecified; Z86.73 Personal history of transient ischemic attack (TIA), and cerebral infarction without residual deficits; F32.9 Major depressive disorder, single episode, unspecified; Z79.01 Long term (current) use of anticoagulants; Z79.899 Other long term (current) drug therapy
CPT/HCPCS: J1040; J2001

== ENCOUNTER 2019-03-19 14:22 | Inpatient (IN) | payer MEDICARE, OTHER ==
[~2019-03-19] VITALS: Ht 167.6 cm; Wt 70.7 kg
[2019-03-19] MEDS ORDERED: ALEN70 PO (14:49)
[2019-03-19 14:55] LABS: BASOPHILS ABSOLUTE AUTO 0.05 K/mm3 (0.00-0.23); BASOPHILS PERCENT AUTO 0 % (0-2); EOSINOPHILS PERCENT AUTO 2 % (0-6); Hematocrit 44.1 % (33.0-51.0); Hemoglobin 14.6 g/dL (11.5-16.0); IMMATURE GRAN ABSOLUTE AUTO 0.06 K/mm3 (0.00-0.10); IMMATURE GRAN PERCENT AUTO 0 % (0-1); LYMPHOCYTES ABSOLUTE AUTO 4.57 K/mm3 (0.84-5.20); LYMPHOCYTES PERCENT AUTO 33 % (21-46); MONOCYTES ABSOLUTE AUTO 1.66 K/mm3 (0.16-1.47); MONOCYTES PERCENT AUTO 12 % (4-13); Mean Corpuscular HGB 32.1 pg (26.0-34.0); Mean Corpuscular HGB Conc 33.1 g/dL (31.5-36.5); Mean Corpuscular Volume 97 fL (80-100); Mean Platelet Volume 9.7 fL (9.1-12.4); NEUTROPHILS ABSOLUTE AUTO 7.23 K/mm3 (1.96-9.15); NEUTROPHILS PERCENT AUTO 52 % (41-73); Platelet Count 218 K/mm3 (150-400); RDW Coefficient Variation 14.8 % (11.7-14.2); RDW Standard Deviation 53.5 fL (35.1-46.3); Red Blood Cell Count 4.55 M/mm3 (3.80-5.20); White Blood Cell Count 13.77 K/mm3 (4.00-11.30)
[2019-03-19 15:04] LABS: Alanine Aminotransfer (ALT/SGP 45 U/L (12-78); Albumin/Globulin Ratio 1.1 (0.8-1.8); Alk Phos 47 U/L (50-136); Anion Gap 10 mmol/L (6-16); Aspartate Aminotrans (AST/SGOT 39 U/L (12-37); Bilirubin, Total 0.5 mg/dL (0.1-1.0); Blood Urea Nitrogen 71 mg/dL (8-24); Bun/Creatinine Ratio 44.1 (12.0-20.0); CO2, Blood 21 mmol/L (21-32); Calcium, Blood 8.6 mg/dL (8.5-10.1); Chloride, Blood 108 mmol/L (98-108); Creatinine, Blood 1.61 mg/dL (0.40-1.00); Globulin, Blood 3.8 g/dL (2.2-4.0); Glomerular Filtration Rate 32 (60-); Glucose, Blood 132 mg/dL (70-99); Potassium, Blood 4.7 mmol/L (3.5-5.5); Sodium, Blood 139 mmol/L (136-145); Total Protein, Blood 7.8 g/dL (6.4-8.2); Troponin I <0.015 ng/mL (0.000-0.040)
[2019-03-19 16:29] LABS: Source, Urine Clean Catch
[2019-03-19 16:31] LABS: Bilirubin, Urine Neg (Neg); Blood, Urine 1+ (Neg); Glucose Qualitative, Urine Neg (Neg); Ketones, Urine Neg (Neg); Leukocyte Esterase, Urine 3+ (Neg); Nitrite, Urine Neg (Neg); Protein, Urine Neg (Neg); Urobilinogen, Urine NORM (Normal)
[2019-03-19 16:36] LABS: Appearance, Urine Clear (Clear); Color, Urine Yellow (P-Yellow)
[2019-03-19 16:37] LABS: Bacteria Few /hpf; Squamous Epithelial Cells Few /hpf (Few); White Blood Cells, Urine 50-100 /hpf (0-5)
[2019-03-19] MEDS ORDERED: CLON.1 PO (17:08)
[2019-03-20 03:30] LABS: BASOPHILS ABSOLUTE AUTO 0.03 K/mm3 (0.00-0.23); BASOPHILS PERCENT AUTO 0 % (0-2); EOSINOPHILS ABSOLUTE AUTO 0.18 K/mm3 (0.00-0.68); EOSINOPHILS PERCENT AUTO 2 % (0-6); Hematocrit 35.9 % (33.0-51.0); Hemoglobin 11.5 g/dL (11.5-16.0); IMMATURE GRAN ABSOLUTE AUTO 0.03 K/mm3 (0.00-0.10); IMMATURE GRAN PERCENT AUTO 0 % (0-1); LYMPHOCYTES ABSOLUTE AUTO 2.75 K/mm3 (0.84-5.20); LYMPHOCYTES PERCENT AUTO 30 % (21-46); MONOCYTES ABSOLUTE AUTO 0.95 K/mm3 (0.16-1.47); MONOCYTES PERCENT AUTO 11 % (4-13); Mean Corpuscular HGB 31.9 pg (26.0-34.0); Mean Corpuscular Volume 99 fL (80-100); Mean Platelet Volume 9.5 fL (9.1-12.4); NEUTROPHILS ABSOLUTE AUTO 5.12 K/mm3 (1.96-9.15); NEUTROPHILS PERCENT AUTO 57 % (41-73); Platelet Count 134 K/mm3 (150-400); RDW Coefficient Variation 14.8 % (11.7-14.2); RDW Standard Deviation 54.6 fL (35.1-46.3); Red Blood Cell Count 3.61 M/mm3 (3.80-5.20); White Blood Cell Count 9.06 K/mm3 (4.00-11.30)
[2019-03-20 03:51] LABS: Bilirubin, Total 0.3 mg/dL (0.1-1.0); Bun/Creatinine Ratio 45.3 (12.0-20.0); Calcium, Blood 7.5 mg/dL (8.5-10.1); Creatinine, Blood 1.28 mg/dL (0.40-1.00); Potassium, Blood 4.6 mmol/L (3.5-5.5)
--- NOTE | 2019-03-20 05:51 | NUR ---
SHIFT SUMMARY PT SLEEPING IN ROOM COMFORTABLY AT THIS TIME. PT HAD NO ACUTE CHANGES IN STATUS T/O NIGHT. PT CONVERTED TO NSR AT APPROX 2030 LAST NOC, AFTER ONE DOSE OF ORAL METOPROLOL. DENIED CP T/O NIGHT. RESP EVEN UNLABORED ON RA W/ SATS >92%. PT HAS NS INFUSING IN PIV AT 125/HR PER EMAER. PT ABLE TO STAND AND AND WALK TO RR W/ SBA FOR CORD CONTROL. DENIES OTHER NEEDS. DENIES SOB. CALL LIGHT IN REACH.
--- NOTE | 2019-03-20 10:02 | NUR ---
PCU DAYSHIFT ASSUMED CARE OF PT APPROX. 0700. PT AOX4. ASSESSMENT COMPLETED. VITAL SIGNS STABLE. PT REPROTS FEELING BETTER THAN WHEN SHE CAME IN AND STATES SHE FEELS THOUGH SHE IS GETTING CLOSER TO HER BASELINE. PT CURRENTLY IN BED. PT ATE ABOUT HALF OF HER BREAKFAST AND REPROTS SHE DIDNT EAT THE REST IT TASTED BAD. ENCOURAGED PT TO FILL OUT MENU FOR THE REST OF THE DAY TO TRY AND GET FOOD SHE LIKES. OFFERED A SNACK FROM OUR [facility] IF SHE WANTED. PT HEART RHTYHM NORMAL SINUS RHYTHM AT THIS TIME. BED IN LOW POSITION, CALL LIGHT IN REACH AND PT DENIES ANY NEEDS.
--- NOTE | 2019-03-20 13:27 | NUR ---
NOTE DISCUSSED WITH PT IMPORTANCE OF USING RESTROOM TO URINATE. PT ABLE TO USE CALL LIGHT LATER TO GET UP TO RESTROOM TO URINATE.
--- NOTE | 2019-03-20 17:41 | NUR ---
SHFIT SUMMARY PT PLEASANT, COOPERATIVE AND USES CALL LIGHT APPROPRIATELY. PT REMAIN A&O4, ALTHOUGH PT FORGETFUL AT TIME. HAD TO REINFORCED EDUCATION ON USING THE CALL LIGHT INTERMITENTLY. PT AGREDD. AFTER TALKING WITH PT ABOUT GETTING UP TO BATHROOM PT CONTINUED TO HIT HER CALL LIGHT TO GET UP TO THE RESTROOM WHEN NEEDED TO URINATE. CARE MANAGEMENT RN IN TO SEE PT TODAY. O.T. EVALUATED PT AND P.T. SCHEDULED OT SEE PT EITHER TODAY OR TOMORROW. PT CONTINUES TO EXPRESS CONCERNS ABOUT GOING HOME AND NEEDING HELP. THIS INFORMATION WAS PASSED ON TO CARE MANAGEMENT RN AND P.T. AND O.T. STAFF. PT VITAL SIGNS REMAIN STABLE. ASSESSMENT FINDINGS REMAIN UNCHANED. PT UP IN CHAIR A COUPLE OF TIMES TODAY. PT IN BED AT THIS TIME. BED IN LOW POSTION, CALL LIGHT IN REACH AND PT DENIES ANY NEEDS. WILL CONTINUE TO MONITOR UNTIL HANDOFF TO NIGHTSHIFTN RN
[2019-03-21 04:07] LABS: BASOPHILS ABSOLUTE AUTO 0.03 K/mm3 (0.00-0.23); BASOPHILS PERCENT AUTO 0 % (0-2); EOSINOPHILS PERCENT AUTO 4 % (0-6); Hematocrit 37.3 % (33.0-51.0); Hemoglobin 11.9 g/dL (11.5-16.0); IMMATURE GRAN ABSOLUTE AUTO 0.03 K/mm3 (0.00-0.10); IMMATURE GRAN PERCENT AUTO 0 % (0-1); LYMPHOCYTES ABSOLUTE AUTO 2.82 K/mm3 (0.84-5.20); LYMPHOCYTES PERCENT AUTO 35 % (21-46); MONOCYTES ABSOLUTE AUTO 0.72 K/mm3 (0.16-1.47); MONOCYTES PERCENT AUTO 9 % (4-13); Mean Corpuscular HGB 31.6 pg (26.0-34.0); Mean Corpuscular HGB Conc 31.9 g/dL (31.5-36.5); Mean Corpuscular Volume 99 fL (80-100); Mean Platelet Volume 9.9 fL (9.1-12.4); NEUTROPHILS ABSOLUTE AUTO 4.27 K/mm3 (1.96-9.15); NEUTROPHILS PERCENT AUTO 52 % (41-73); Platelet Count 126 K/mm3 (150-400); RDW Coefficient Variation 14.4 % (11.7-14.2); RDW Standard Deviation 52.4 fL (35.1-46.3); Red Blood Cell Count 3.77 M/mm3 (3.80-5.20); White Blood Cell Count 8.17 K/mm3 (4.00-11.30)
[2019-03-21 04:30] LABS: Bun/Creatinine Ratio 42.7 (12.0-20.0); Calcium, Blood 8.2 mg/dL (8.5-10.1); Creatinine, Blood 1.1 mg/dL (0.40-1.00); Potassium, Blood 4.2 mmol/L (3.5-5.5)
--- NOTE | 2019-03-21 05:04 | NUR ---
SHIFT SUMMARY PT SLEEPING IN ROOM COMFORTABLY AT THIS TIME. NO ACUTE CHANGES IN STATUS T/O NIGHT. PT SLEPT WELL AND CALLED TO USE RR APPROPRIATELY T/O NIGHT. DENIED PAIN, DENIED SOB. RESP EVEN UNLABORED ON RA W/ SATS >92%. DENIES OTHER NEEDS. PIV SALINE LOCKED AT THIS TIME. CALL LIGHT IN REACH.
--- NOTE | 2019-03-21 17:12 | NUR ---
SHIFT SUMMARY PT PLEASANT, COOPERATIVE AND USES CALL LIGHT APPROPRIATELY. PT REMAINS A&OX4. BUT SLIGHTLY FORGETFUL AT TIMES. ASSESSMENT FINDINGS REMAIN UNCHANGE SINCE START OF SHIFT. VITAL SIGNS STABLE. PT ABLE TO MOVE AROUND ROOM INTERMITENTLY T/O SHIFT. PT REPROTS HAVING MORE APPETITE TODAY. PT ABLE TO WALK IN HALLWAY A COUPLE OF TIMES DURING SHIFT WITH STAFF. PT CURRENLY SITTING UP IN CHAIR AWAITING DINNER. CALL LIGHT IN REACH AND PT DENIES ANY NEEDS. WILL CONTINUE TO MONITOR UNTIL HANDOFF TO NIGHTSHIFT RN.
--- NOTE | 2019-03-21 20:02 | NUR ---
CARE ASSUMPTION PT A&O X4. VSS. PT REPORTS LIVING ALONE WITH HER CAT AND STATES THAT HER LAND LORD EVICTED HER TODAY BUT STATES SHE HAS UNTIL MAY TO BE OUT. WILL REQUEST WEEKEND CAREGIVER CONSULT TO FOLLOW UP.
--- NOTE | 2019-03-21 20:55 | NUR ---
UPDATE PT REPORTS MULTIPLE FALLS AT HOME STATING "I FALL ALL THE TIME." PT REPORTS USING WALKER AT BASELINE BUT REPORTS FALLING AND BEING UNABLE TO GET UP AND HAVING TO CALL THE FIRE DEPARTMENT FOR HELP UP. PT ENCOURAGED TO USE CALL BUTTON TO NOTIFIY STAFF FOR SBA BEFORE GETTING UP TO PREVENT FALL IN HOSPITAL. PT NONCOMPLIANT W/ CALLING FOR HELP BEFORE GETTING UP, SETTING BED ALARM OFF. PT UPSET W/ STAFF FOR HAVING BED ALARM ON W/ PT STATING "I WAS HONEST W/ YOU ABOUT FALLING. I FALL ALL THE TIME. I'M STABLE ON MY FEET, I DON'T NEED HELP." PT AGAIN ENCOURGED TO USE CALL LIGHT PRIOR TO GETTING UP. BED ALARM IN USE. WILL CONTINUE TO MONITOR AND PROIDE CARE.
[2019-03-22 03:55] LABS: BASOPHILS ABSOLUTE AUTO 0.05 K/mm3 (0.00-0.23); BASOPHILS PERCENT AUTO 1 % (0-2); EOSINOPHILS ABSOLUTE AUTO 0.24 K/mm3 (0.00-0.68); EOSINOPHILS PERCENT AUTO 3 % (0-6); Hematocrit 34.9 % (33.0-51.0); Hemoglobin 11.6 g/dL (11.5-16.0); IMMATURE GRAN ABSOLUTE AUTO 0.03 K/mm3 (0.00-0.10); IMMATURE GRAN PERCENT AUTO 0 % (0-1); LYMPHOCYTES ABSOLUTE AUTO 2.85 K/mm3 (0.84-5.20); LYMPHOCYTES PERCENT AUTO 35 % (21-46); MONOCYTES PERCENT AUTO 10 % (4-13); Mean Corpuscular HGB 32.4 pg (26.0-34.0); Mean Corpuscular HGB Conc 33.2 g/dL (31.5-36.5); Mean Corpuscular Volume 98 fL (80-100); Mean Platelet Volume 9.9 fL (9.1-12.4); NEUTROPHILS PERCENT AUTO 52 % (41-73); Platelet Count 120 K/mm3 (150-400); RDW Coefficient Variation 14.4 % (11.7-14.2); RDW Standard Deviation 51.5 fL (35.1-46.3); Red Blood Cell Count 3.58 M/mm3 (3.80-5.20); White Blood Cell Count 8.27 K/mm3 (4.00-11.30)
[2019-03-22 04:33] LABS: Albumin, Blood 3.3 g/dL (3.4-5.0); Anion Gap 8 mmol/L (6-16); Blood Urea Nitrogen 38 mg/dL (8-24); Bun/Creatinine Ratio 38.3 (12.0-20.0); CO2, Blood 23 mmol/L (21-32); Calcium, Blood 8.3 mg/dL (8.5-10.1); Chloride, Blood 106 mmol/L (98-108); Creatinine, Blood 0.99 mg/dL (0.40-1.00); Glomerular Filtration Rate 57 (60-); Glucose, Blood 105 mg/dL (70-99); Potassium, Blood 4.4 mmol/L (3.5-5.5); Sodium, Blood 137 mmol/L (136-145)
--- NOTE | 2019-03-22 06:32 | NUR ---
SHIFT SUMMARY PT MEDICAL NO TELE STATUS. A&O TO SELF AND SURROUNDINGS W/ EPISODES OF CONFUSION AND FORGETFULNESS. PT REQUIRING BED ALARM AT BEGINNING OF SHIFT D/T GETTING UP W/OUT ASSISTANCE AND REPORTS OF MULTIPLE FALLS AT HOME. PT NOW USING CALL LIGHT FOR ASSISTANCE. PT IRRITABLE AT TIMES, PLEASEANT AND COOPERATIVE AT THIS TIME. LUNG SOUNDS CLEAR. SPO2 > 92% ON RA. VSS. WILL CONTINUE TO MONITOR AND PROVIDE CARE UNTIL REPORT OFF TO DAY SHIFT RN.
--- NOTE | 2019-03-22 10:03 | NUR ---
PCU DAYSHIFT ASSUMED CARE OF PT APPROX. 0700. PT A&OX4. PT VITAL SIGNS STABLE. ASSESSMENT COMPLETED. PT REPORTS FEELING GOOD THIS MORNING BUT CONTINUES TO EXPRESS CONCERNS FOR LEAVING AND GOING HOME WITHOUT ANY RESOURCES. WILL SPEAK WITH CARE MANAGEMENT RN AND LOOK INTO WHO WILL SEE PT FOR SOCIAL SERVICE CONSULT TO ENSURE THEYA RE AWARE OF PT CONCERNS. PT ABLETO AMBUYALTE TO BATHROOM AND TOLERATED WELL. PT ABLE TO GET HERSELF IN AND OUT OF BED ON HER OWN. ENCOURAGED HER TO CONTINUE TO PARTICIAPTE AND COMPLETE HER ADL'S. PT ABLE TO SIT UP IN CHAIR FOR BREAKFAST. TALKED WITH PT ABOUT IMPORTANCE OF USING CALL LIGHT PATIENT AGREED TO DO THIS WHEN SHE NEEDS SOMETHING INSTEAD OF WANDERING OUT OF ROOM. CALL LIGHT IN REACH AND PT DENIES ANY NEEDS WILL CONTINUE TO MONITOR
--- NOTE | 2019-03-22 12:13 | NUR ---
NOTE PMD IN TO SEE PT. PT DISCUSSED WITH PHYSICIAN ABOUT WISHES TO HAVE IV'S REMOVED. PHYSICIAN STATES FOR ME TO REMOVE ONE OF THE IV'S AT THIS TIME. IF THE SECOND IV ENDS UP GOING BAD IN THE NEXT DAY OR TWO PHYSCIAN REPORTS, DO NOT WORRY ABOUT PLACING ANOTHER IV. PHYSICIAN OKAY WITH PATIENT BEING WITHOUT ANY IV'S
--- NOTE | 2019-03-22 17:30 | NUR ---
SHIFT SUMMARY PT PLEASANT, COOPERATIVE AND USES CALL LIGHT APPROPRIATELY. PT REMAINS A&OX4. ASSESSMENT FINDINGS REMAIN UNCHANGED SINCE START OF SHIFT. PT ABLE TO WORK WITH PHYSICAL THERAPY TODAY AND DID WELL. AFTER THIS PT WAS ABLE TO WALK AROUND UNIT WITH STAFF AND TOLERATED WELL. CONTINUED TO ENCOURAGE PT TO PARTICIPATE IN PHYSICIAL ACTIVITY AND ADL'S. OVER PT REPORTS FEELING GOOD. PT UP IN CHAIR AT THIS TIME. CALL LIGHT IN REACH AND PT DENIES ANY NEEDS WILL CONTINUE TO MONITOR UNTIL HANDOFF TO NIGHTSHIFT RN
--- NOTE | 2019-03-22 21:30 | NUR ---
UPDATE PT FOUND IN ICU LOUNGE BY AIRCRAFT LIFE SUPPORT FITTER. PT ASSISTED BACK TO PCU RM AND KINDLY ASKED TO NOTIFY STAFF WHEN WANTING TO GO FOR A WALK AND ESPECIALLY TO NOTIFIY STAFF IF LEAVING THE DEPARTMENT. PT UPSET, STATING "I DON'T HAVE TO TELL ANYONE." PT ENCOURAGED TO DO SO FOR PT SAFETY WHILE IN HOSPITAL CARE. PT ARGUMENTATIVE AND ANGRY W/ STAFF INSISTING ON PROPER PROTOCOLS FOR "MISSING PATIENTS". PT ENCOURAGED TO PLEASE NOTIFY STAFF BEFORE LEAVING UNIT AND FOR SBA W/ AMBULATION. PT INFORMED THAT BED ALARM WILL HAVE TO AGAIN BE USED IF PT DOES NOT ALERT STAFF APPROPRIATELY. PT ANGRY, ASKING STAFF NOT TO COME IN ROOM.
--- NOTE | 2019-03-23 01:09 | NUR ---
UPDATE PT CALLING APPROPRIATELY. PT BACK IN ROOM AFTER AMBULATING IN HALLWAYS W/ FWW & NURSE SBA. PT TOLERATING AMBULATION WELL.
--- NOTE | 2019-03-23 04:07 | NUR ---
SHIFT SUMMARY PT CONTINUES TO BE A&O W/ EPISODES OF CONFUSION AND FORGETFULNESS. VSS. PT TOLERATING AMBULATION IN HALLWAYS W/ FWW WELL. PT AWAKE MAJORITY OF SHIFT. WILL CONTINUE TO MONITOR AND PROVIDE CARE UNTIL REPORT OFF TO DAY SHIFT RN.
--- NOTE | 2019-03-23 09:50 | NUR ---
PCU DAYSHIFT ASSUMED CARE OF PT APPROX. 0700. PT A&OX4. ASSESSMENT COMPLETED. VITAL SIGNS STABLE. PT REPORTS THAT LAST NIGHT SHE DID NOT GET ALONG WELL WITH PLANT SCIENTIST RN. SHE REPORTS THAT SHE WENT WANDERING THE WALLWAY LAST NIGHT. I LET PT KNOW THAT SHE NEEDED TO STAY IN HER ROOM UNLESS A STAFF MEMBER WAS WITH HER. SHE AGREED TO DOING THIS TODAY. SHE ALSO AGREED TO HIT HER CALL LIGHT WHEN SHE NEEDED SOMETHING AND WOULDN'T WANDER THE HALLS FOR THIS. PT WAS ABLE TO EAT BREAKFAST THIS MRONING AND TOLERATED WELL. PT REPROTS HAVING A BOWEL MOVEMENT THIS MORNING. PT UP IN CHAIR AT THIS TIME. CALL LIGHT IN REACH AND PT DENIES ANY NEEDS. WILL CONTINUE TO MONITOR.
--- NOTE | 2019-03-23 12:59 | NUR ---
NEW ROOM RECIEVED NEW ROOM ASSIGNMENT. REPROT CALLED TO RECEIVING RN. NOTIFIED PATIENT OF THIS. DISCUSSED WITH PATIENT IMPROTANCE OF CONTINUING TO HIT CALL LIGHT AND USE RESTROOM NEEDED. TALKED WITH PT ABLE STAYING IN ROOM UNLESS STAFF WITH HER. EVEN AT NEW ROOM. SHE STATES SHE WILL TRY. PT ESCORTED BY PEER STAFF MEMBER VIA WHEELCHAIR TO NEW ROOM
--- NOTE | 2019-03-23 14:57 | NUR ---
PCU 6 TRANSFER THIS AFTERNOON. PT IS A/O X4, PLEASANT AFFECT. STATE NO PAIN. STATE WEAKNESS/FATIGUE HAS IMPROVED. ORIENTED TO ROOM & CALL SYSTEM. SHE DEMONSTRATE STEADY GAIT WHEN UP, HOWEVER CAUTIONED HER TO CALL FOR ASSIST TO BR NEEDED, FALL PRECAUTIONS. HRR, 50-60 @ THIS TIME. DX UTI, WBC WNL. SHE IS ON ORAL ANTIBX @ THIS TIME. AWAITING [facility] CARE MANAGERS ASSISTANCE FOR SAFE D/C WHEN APPROP/DR BANKS PROGRESS NOTE.
--- NOTE | 2019-03-24 03:29 | NUR ---
SHIFT SUMMARY- PT. A&O, FORGETFUL AT TIMES. SBA TO BATHROOM. AMBULATED LAST NIGHT WITH WALKER ACCOMPANIED BY MAINFRAME PROGRAMMER ANALYST, TOLERATED WELL. RESTED ON/OFF DURING THE NIGHT, NO APPARENT DISTRESS NOTED. DENIED ANY PAIN OR DISCOMFORT. CALL LIGHT WITHIN REACH AND SIDE RAILS UP X2. WILL CONT TO MONITOR.
--- NOTE | 2019-03-24 12:19 | NUR ---
DR ARITA INFORMED HIM THAT METOPROLOL WAS BEING HELD DUE TO BRADYCARDIA. HAS ADJUSTED THE EMAR.
--- NOTE | 2019-03-24 16:19 | NUR ---
SHIFT SUMMARY PT LIVES AT HOME BY HERSELF. HOME HEALTH WOULD BE HELPFUL, WHICH THE PT HAS AGREED TO. SHE HAS BEEN EVICTED FROM HER HOME BUT WILL NOT HAVE TO MOVE UNTIL MAY, THIS SHOULD GIVE HER FAMILY AND HERSELF PLENTY OF TIME TO FIND PLACEMENT AT HER PREFERED [facility]. SHE IS PERIODICALLY FORGETFUL. DOCTOR ADJUSTED HER METOPROLOL DOSAGE TODAY (SEE PARAMETERS FOR ADMINISTRATION). SHE DOES STATE SHE FEELS PERIODICALLY DIZZY. SHE IS BRADYCARDIC RUNNING 40-50'S BPM.
--- NOTE | 2019-03-25 03:34 | NUR ---
SHIFT SUMMARY- NO ACUTE CHANGES OVERNIGHT. PT. RESTING QUIETLY IN BED, NO APPARENT DISTRESS NOTED. HAS BEEN UP TO THE BATHROOM WITH SBA, TOLERATING AMBULATION WELL. DENIED ANY NEEDS DURING THE NIGHT. CALL LIGHT WITHIN REACH AND SIDE RAILS UP X2. WILL CONT TO MONITOR.
[2019-03-25] MEDS ORDERED: ACET325 PO (13:13)
[2019-03-25] MEDS ORDERED: METO25 PO (13:14)
[2019-03-25] MEDS ORDERED: CEPACOL SORE T1 EACH MM (13:19)
[2019-03-25] MEDS ORDERED: FURO40 PO (13:22)
[2019-03-25] MEDS ORDERED: NITR.4SL SL (13:23)
--- NOTE | 2019-03-25 14:36 | NUR ---
Pastoral care provided Pt. is doing well happy for the visit
--- NOTE | 2019-03-25 16:07 | NUR ---
DISCHARGE NOTE IV DC'D WNL. MEDICATIONS FAXED TO PREFERED PHARMACY. PT PROVIDED WITH HARDCOPY AND VERBAL INSTRUCTIONS FOR DC RE: DIAGNOSES, FOLLOW UP APPOINTMENTS, HOME CAREGIVING INSTRUCTIONS, AND MEDICATIONS. PT HAD NO FURTHER QUESTIONS. PERSONAL BELONGINGS GATHERED. PT DRESSED IN PERSONAL CLOTHING. HER CAREGIVER ARRIVED TO TRANSPORT HER HOME. ESCORT TOOK THE PT OUT TO A PERSONAL VEHICLE VIA WHEELCHAIR.
== END 2019-03-25 15:06 | disposition home or self-care (01) | DRG 683 ==
LOC: ER 14:22 → PCU 14:23 → ER 19:56 → PCU 19:59 → MEDS 03-23 13:07 → ENPENDDIS 03-25 11:34 → MEDS 03-25 15:06
PROVIDERS: Emergency Medicine; Internal Medicine Gastroenterology; Physician Assistant; ADMIT Family Medicine
DX: N17.9 Acute kidney failure, unspecified (principal); I50.32 Chronic diastolic (congestive) heart failure; R82.71 Bacteriuria; I48.91 Unspecified atrial fibrillation; J44.9 Chronic obstructive pulmonary disease, unspecified; Z87.891 Personal history of nicotine dependence; E86.0 Dehydration; I35.0 Nonrheumatic aortic (valve) stenosis; M81.0 Age-related osteoporosis without current pathological fracture; K21.9 Gastro-esophageal reflux disease without esophagitis; N39.46 Mixed incontinence; E89.0 Postprocedural hypothyroidism; Z66 Do not resuscitate; F32.9 Major depressive disorder, single episode, unspecified; I11.0 Hypertensive heart disease with heart failure
CPT/HCPCS: 36415; 71046; 74176; 80048; 80053; 80069; 81001; 83605; 83690; 83880; 84484; 85025; 87040; 87086; 93005; 93010; 96361; 96365; 96367; 97110; 97161; 97165; 97530; 97535; 99285-25; A9270; J0696; J1956; J7030; J7120

== ENCOUNTER 2019-04-09 10:53 | Inpatient (IN) | payer MEDICARE, OTHER ==
[~2019-04-09] VITALS: Ht 160 cm; Wt 82.3 kg
[~2019-04-09 10:53] MED LIST changes: +ALEN70 PO; +CEPACOL SORE T1 EACH MM; +METO25 PO
[2019-04-09 11:18] LABS: BASOPHILS ABSOLUTE AUTO 0.04 K/mm3 (0.00-0.23); BASOPHILS PERCENT AUTO 1 % (0-2); EOSINOPHILS ABSOLUTE AUTO 0.29 K/mm3 (0.00-0.68); EOSINOPHILS PERCENT AUTO 3 % (0-6); Hematocrit 41.5 % (33.0-51.0); Hemoglobin 13.6 g/dL (11.5-16.0); IMMATURE GRAN ABSOLUTE AUTO 0.01 K/mm3 (0.00-0.10); IMMATURE GRAN PERCENT AUTO 0 % (0-1); LYMPHOCYTES ABSOLUTE AUTO 2.82 K/mm3 (0.84-5.20); LYMPHOCYTES PERCENT AUTO 33 % (21-46); MONOCYTES ABSOLUTE AUTO 1.21 K/mm3 (0.16-1.47); MONOCYTES PERCENT AUTO 14 % (4-13); Mean Corpuscular HGB 32.5 pg (26.0-34.0); Mean Corpuscular HGB Conc 32.8 g/dL (31.5-36.5); Mean Corpuscular Volume 99 fL (80-100); Mean Platelet Volume 9.8 fL (9.1-12.4); NEUTROPHILS ABSOLUTE AUTO 4.26 K/mm3 (1.96-9.15); NEUTROPHILS PERCENT AUTO 49 % (41-73); Platelet Count 185 K/mm3 (150-400); RDW Coefficient Variation 13.9 % (11.7-14.2); RDW Standard Deviation 50.6 fL (35.1-46.3); Red Blood Cell Count 4.19 M/mm3 (3.80-5.20); White Blood Cell Count 8.63 K/mm3 (4.00-11.30)
[2019-04-09 11:45] LABS: Alanine Aminotransfer (ALT/SGP 37 U/L (12-78); Albumin/Globulin Ratio 1.1 (0.8-1.8); Alk Phos 39 U/L (50-136); Anion Gap 5 mmol/L (6-16); Aspartate Aminotrans (AST/SGOT 34 U/L (12-37); Bilirubin, Total 0.6 mg/dL (0.1-1.0); Blood Urea Nitrogen 62 mg/dL (8-24); Bun/Creatinine Ratio 36.3 (12.0-20.0); CO2, Blood 27 mmol/L (21-32); Calcium, Blood 10.3 mg/dL (8.5-10.1); Chloride, Blood 107 mmol/L (98-108); Creatinine, Blood 1.71 mg/dL (0.40-1.00); Globulin, Blood 3.5 g/dL (2.2-4.0); Glomerular Filtration Rate 30 (60-); Glucose, Blood 96 mg/dL (70-99); Potassium, Blood 4.4 mmol/L (3.5-5.5); Sodium, Blood 139 mmol/L (136-145); Total Protein, Blood 7.5 g/dL (6.4-8.2); Troponin I <0.015 ng/mL (0.000-0.040)
[2019-04-09 12:35] LABS: Source, Urine Voided
[2019-04-09] MEDS ORDERED: VALACYCLOVIR500 MG PO (12:39)
[2019-04-09 12:41] LABS: Bilirubin, Urine Neg (Neg); Blood, Urine Neg (Neg); Glucose Qualitative, Urine Neg (Neg); Ketones, Urine Neg (Neg); Leukocyte Esterase, Urine 2+ (Neg); Nitrite, Urine Neg (Neg); Protein, Urine Neg (Neg); Urobilinogen, Urine NORM (Normal)
[2019-04-09 12:53] LABS: Appearance, Urine Clear (Clear); Color, Urine Yellow (P-Yellow)
[2019-04-09 12:55] LABS: Bacteria Rare /hpf; Granular Casts 0-2 /lpf ({null, 0}); Red Blood Cells, Urine 0-2 /hpf (0-2); Squamous Epithelial Cells Rare /hpf (Few)
--- NOTE | 2019-04-09 15:48 | NUR ---
PT ARRIVED TO THE MEDICAL FLOOR IN A GURNEY FROM THE ED. PT TRANSFERED TO THE BED ON OWN WITH STANDBY ASSIST. PT ASSISTED TO THE BATHROOM BY FORD MERCER. PT ALERT AND ORIENTED. PT ORIENTED TO THE ROOM AND ADMISSION INFORMATION RECEIVED FROM PATIENT. PT PROVIDED WITH SNACKS WHILE TRAY WAS ORDERED. PT STATES NO ADDITIONAL NEEDS AT THIS TIME.
--- NOTE | 2019-04-09 18:37 | NUR ---
PT ARRIVED ON THE MEDICAL FLOOR AROUND 2 PM. PT ALERT AND ORIENTED. PT ABLE TO TRANSFER WITH STANDBY ASSIST. PT FRIENDLY WITH STAFF AND COOPERATIVE WITH ADMISSION. PT CALLS APPROPRIATELY WHEN SHE NEEDS TO GO TO THE BATHROOM. PT SITTING IN BED READING THE NEWSPAPER. NO FURTHER NEEDS AT THIS TIME. WILL CONTINUE TO MONITOR.
--- NOTE | 2019-04-10 04:44 | NUR ---
83 year old Female recently dc home alone after 8 day hospital stay at [facility] for AFIB with RVR and reportedbladder infection admitted with dizziness and multiple falls. PT says while she was in [facility] she was evicted from her current living sitution. She says she has made arrangements to move into Assisted Living complex on 04/22/19. She sites lack of support and GI problems as contributing to multiple falls. She has adult DTR in [place] and says no other Family in this area. Spouse 2 years ago with throat cancer and dementia. PT denies need for pain meds. She has sinus bradycardia per tele monitor and feels dizzy and weak when she moves to standing position. Very unsteady just getting up to bedside commode. Pt has DNR status. She is able to communicate, mild anxiety at times. Asking for snacks said she had poor oral intake after DC from hospital and had made arrangements to have a drilling plant operator come 3 hours a week due to come today. Up with assist only, maintain fall precautions. Encourage oral intake, assess for adequate support for dc.
[2019-04-10 05:31] LABS: Bun/Creatinine Ratio 42.3 (12.0-20.0); Creatinine, Blood 1.37 mg/dL (0.40-1.00); Potassium, Blood 4.3 mmol/L (3.5-5.5)
--- NOTE | 2019-04-10 19:14 | NUR ---
PT ALERT, ORIENTED, AND IN GOOD SPIRITS THROUGHOUT THE SHIFT. PT AMBULATES WITH STANDBY ASSISTANCE TO THE RESTROOM. PT USES CALL-LIGHT APPROPRIATELY. PT ON TELEMETRY WITH PERSISTENT BRADYCARDIA. PT IN BED THROUGHOUT THE SHIFT WITH MULTIPLE VISITORS.
--- NOTE | 2019-04-10 19:29 | NUR ---
ASSUMED CARE OF PATIENT. PT SITTING UP IN BED, AOX4, PT DENIES PAIN, NAUSEA. PT OOB TO BRP WITH FWW AND SBA. VOIDING WELL. #20 LW SL C/D/I. BED LOW AND LOCKED. CALL RICHARDS WITHIN REACH.
--- NOTE | 2019-04-10 21:09 | NUR ---
SPOKE TO DAUGHTER MATHEW WHO IS AN RN IN [place]. SHE IS VERY CONCERNED ABOUT HER MOM BEING DISCHARGED TO HOME ALONE GIVEN HER HIGH FALL RISK, HER CURRENT ORTHOSTATIC/BRADYCARDIC STATUS. SHE REQUESTS TO BE CONTACTED BY THE PT/OT, AND CASE MANAGEMENT REGARDING LEVEL OF CARE FOLLOWING DISCHARGE. HER CELL: [phone]
--- NOTE | 2019-04-11 05:47 | NUR ---
4703: SPOKE TO DR ALDRIDGE REGARDING PATIENT. PER PCU TECH PT CONVERTED TO AFIB RVR (RATE 115-140 BPM) ABOUT 15 MIN AGO. VS 143/82, P 139, RR18, O2 93% T= 98.2, BACKGROUND GIVEN: PT ADMITTED WITH LOW HR. BETABLOCKERS ON HOLD. PT HAD ELAVATED PRESSURE EARLIER AND WAS GIVEN EARLIER AND WAS GIVEN IV HYDRALIZINE (10 MG) PRN PER EMAR. PT ASYMPTOMATIC.
--- NOTE | 2019-04-11 18:32 | NUR ---
PATIENT STARTED SHIFT WITH HR IN THE 130-140. AT 1147 PER CAMPAIGN ASSISTANT, PATIENT CONVERTED TO SR 91. SHE HAS REMAINED THERE THROUGH OUT THE SHIFT. PATIENT HAS BEEN PLEASANT AND COOPERATIVE WITH CARES THROUGH OUT THE SHIFT. SHE IS ABLE TO AMBULATE TO THE RESTROOM AND BSC WITH ONE ASSIST. FLUIDS PUSHED AND PATIENT EDUCATED REGARDING THE IMPORTANCE OF THEM.
--- NOTE | 2019-04-12 01:16 | NUR ---
1919: ASSUMED CARE OFPATIENT. PER DAY NURSE PT WAS OOB TO BRP FREQUENTLY AND THENHALF WAY TO BR SOB AND TURNED BTB. ASKED PT NOT TO GET UP AND EDUCATED REGARDING PATIENT SAFETY. 1999: PT FOUND GETTING OOB WITHOUT CALLING FOR HELP. ALARMED BED. EDUCATED PATIENT REGARDING PATIENT SAFETY. 2129: PT GETTING UP FREQUENTLY, ASKING TO GO FOR A WALK. ASKING TO GO TO BRP, ACTING SILLY AT TIMES. PT AOX4. EDUCATED PT THAT IF SHE CANT WALK TO THE BATHROOM SHE WONT BE ABLE TO WALK IN THE [place]. PT ASKING FOR RIDE IN W/C. IF WE HAVE TIME WE WILL TRY TO ACCOMODATE.
--- NOTE | 2019-04-12 06:38 | NUR ---
EOS: PATIENT WAS MUCH MORE RELAXED AND HAPPY THIS AM AFTER SHE FINALLY SLEPT FOR A COUPLE TO HOURS. PATIENT WAS ALMOST MANIC IN HER BEHAVIOR AT ONE POINT DURING THE NOC SHIFT. SHE SEEMS HYPER ACTIVE. SHE STATES ITS HARD FOR HER TO BE STILL. PER PT PT HAS DECLINED TO WORK WITH HER SHE HAS HAD LOW PRESSURES WHEN THEY COME. SHE FINDS IT FUSTRATING. BUT THS MONRING SHE IS FEELING BETTER, DENIES PAIN. PASSED REPORT TO DAY NURSE.
[2019-04-12 10:43] LABS: Bun/Creatinine Ratio 29.3 (12.0-20.0); Calcium, Blood 8.7 mg/dL (8.5-10.1); Creatinine, Blood 0.99 mg/dL (0.40-1.00); Potassium, Blood 4.2 mmol/L (3.5-5.5)
--- NOTE | 2019-04-12 18:05 | NUR ---
Shift Summary Pt has been A/O, pleasant, and cooperative with care. Bed alarm has been on for pt safety. Ortho vitals taken this morning and results were positive, Dr. Interiano aware. Pt calls appropritely for needs; however, sometimes gets up alone and sounds the alarm. Otherwise, no other acute changes this shift. VSS, afebrile.
--- NOTE | 2019-04-12 18:30 | NUR ---
Pt c/o "heart pounding" and SOB after getting assistance to the bathroom. Per Nikita (groundwater monitoring technician), pt was running SR 66 and no abnormal reading for the past 20 minutes. Pt now resting comfortably in bed.
--- NOTE | 2019-04-13 04:32 | NUR ---
0330: SPOKE TO DR ALDRIDGE RE: PT PVR = 700, RECVD ORDERS TO STRAIGHT CATH NOW AND RECHECK BLADDER SCAN IN 6 HOURS. CATHED PATIENT AND REMOVED 550ML FROM PT BLADDER. WILL CONTINUE TO MONITOR. 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 APPEARS TO HAVE ONE OR TWO SMALL LESIONS AROUND HER LABIA. 0645: PASSED INFO TO DAY NURSE.
[2019-04-13 05:39] LABS: Anion Gap 6 mmol/L (6-16); Blood Urea Nitrogen 27 mg/dL (8-24); Bun/Creatinine Ratio 29.3 (12.0-20.0); CO2, Blood 27 mmol/L (21-32); Calcium, Blood 8.4 mg/dL (8.5-10.1); Chloride, Blood 107 mmol/L (98-108); Creatinine, Blood 0.92 mg/dL (0.40-1.00); Glomerular Filtration Rate >60 (60-); Glucose, Blood 124 mg/dL (70-99); Potassium, Blood 3.7 mmol/L (3.5-5.5); Sodium, Blood 140 mmol/L (136-145)
--- NOTE | 2019-04-13 08:22 | NUR ---
Physician notified Dr. Interiano and Dr. Simmons notified RE pt converting to a-fib @ 6853. Pt to be transferred to PCU per Dr. Interiano.
--- NOTE | 2019-04-13 08:58 | NUR ---
Hand off report Gave report to receiving nurse Rosangela. Pt transferred via bed c RN and CO PILOT to PCU-8. Belongings with pt. This RN explained the need to transfer to a higher acuity floor. A/Ox3.
--- NOTE | 2019-04-13 09:00 | NUR ---
RECEIVED REPORT FROM LATASHA CARPIO. LAMIN PAGAN MARI UPDATED DR GONSALEZ.
--- NOTE | 2019-04-13 09:39 | NUR ---
PT TO ROOM AT 0913, TRANSFERED FROM MEDICAL. PT SBA TRANSFER TO BED. PT ORIENTED TO ROOM AND CALL LIGHT. PT EDUCATED ON FALL RISK AND BEDALARM. PT TELE IN AFIB, AVERAGING 130'S, HITTING 160'S. PT REPORTS FEELING "FLUTTERS" AT TIMES. ORTHO STATICS COMPLETED, PT REPORTS DIZZINESS UPON STANDING. PT A&Ox3, ANXIOUS AND IMPULSIVE AT TIMES. PT 1 PERSON ASSIST WITH WALKER. PT DENIES PAIN AND NAUSEA. PT REPORTS SOB WITH EXERTION, SPO2 >94% ON RA, LS DIM IN BASES. PT DENIES CHEST PAIN/PRESSURE. OTHER VSS. NO OTHER ACUTE CHANGES. DR GONSALEZ NOTIFIED OF TRANSFER. WILL CONTINUE TO MONITOR.
--- NOTE | 2019-04-13 11:01 | NUR ---
LATE NOTE PT CONVERTED TO SR AT APPROX 1005 PER AGUSTIN IN TELE, DR LORD AND DR GONSALEZ NOTFIED. WILL CONTINUE TO MONITOR.
--- NOTE | 2019-04-13 19:25 | NUR ---
SHIFT SUMMARY PT A&Ox3, ANXIOUS BUT COOPERATIVE WITH CARE. PT RESTING IN BED DURING SHIFT. UP TO BATHROOM WITH 1 PERSON ASSIST WITH WALKER. PT IMPULSIVE, SETTING BED ALARM OFF SEVERAL TIME DURING SHIFT. PT REPORTS MULTIPLE RECENT FALLS AT HOME, BRUISNG AND SCABS SCATTERED, PT REPORTS ALL FROM FALLS. PT CONVERTED TO AFIB THIS AM PRIOR TO TRANSFERING TO PCU, THEN CONVERTED TO SR 60-70'S FOR MAJORITY OF SHIFT. PLANS TO PLACE PACEMAKER MON OR , NPO TONIGHT. EKG IN AM. PT EXPRESSED ANXIETY ABOUT PACEMAKER PLACEMENT AND PAIN, EDUCATED PT ON PROCEDURE AND PAIN MANAGEMENT. PT ON PO SOTALOL. ORTHO/VS COMPLETED. PT DENIES PAIN, SOB AND NAUSEA T/O SHIFT. SPO2 >94% ON RA. BP TRENDING UP THIS EVENING, OTHER VSS. NO OTHER ACUTE CHANGES NOTED DURING SHIFT. REPORT GIVEN TO ONCOMING RN. WITH PLANS FOR POSSIBLE PROCEDURE TOMORROW, SPOKE WITH DR GONSALEZ FOR CLARIFICATION OF LOVENOX, NEW ORDERS TO CONTINUE WITH DOSE ON 04/13/19.
--- NOTE | 2019-04-14 00:44 | NUR ---
EKG COMPLETED THIS MORNING QT/QTC IS 528/528 COMPARED TO 04/09/19 EKG QT/QTC 486/439. CALLED DR. ALDRIDGE WHO STATED TO MONITOR. NOTIFIED PATIENT IS ON SOTALOL. NO ORDERS TAKEN.
--- NOTE | 2019-04-14 05:35 | NUR ---
PATIENT UP AND DOWN TO THE BATHROOM FREQUENTLY TO URINATE. PATIENT HAS URGENCY AND DOES NOT ALWAYS MAKE IT. PATIENT URINATING SMALL AMOUNTS THEN GETS BACK TO BED AND STILL FEELS THE NEED TO GO AND SOMETIMES HAS INCONTINENCE IN THE BED. PATIENT FRUSTRATED WITH THIS. POST VOID DONE ANYWHERE FROM 333 TO 36CC. PATIENT COMPLAINED OF LEG PAIN IN THE EVENING, WHICH SHE RECIEVED APAP AND WARM BLANKETS FOR. PATIENT STATES SHE GOT GOOD SLEEP THROUGH THE NIGHT IN BETWEEN CARE. PATIENT MAINTAIN IN SR THROUGH THE NIGHT. PATIENT ONLY COMPLAINED OF DIZZINESS ONCE AT THE BEGINNING OF THE SHIFTM NO FURTHER COMPLAINTS. PATIENT WALKS WITH WALKER TO BATHROOM WITHOUT ASSIST. CALL LIGHT REMAINS WITH IN REACH AND IS USING APPROPRIATELY.
[2019-04-14 11:08] LABS: BASOPHILS ABSOLUTE AUTO 0.04 K/mm3 (0.00-0.23); BASOPHILS PERCENT AUTO 1 % (0-2); EOSINOPHILS ABSOLUTE AUTO 0.31 K/mm3 (0.00-0.68); EOSINOPHILS PERCENT AUTO 4 % (0-6); Hematocrit 37.5 % (33.0-51.0); Hemoglobin 12.4 g/dL (11.5-16.0); IMMATURE GRAN ABSOLUTE AUTO 0.03 K/mm3 (0.00-0.10); IMMATURE GRAN PERCENT AUTO 0 % (0-1); LYMPHOCYTES ABSOLUTE AUTO 2.21 K/mm3 (0.84-5.20); LYMPHOCYTES PERCENT AUTO 30 % (21-46); MONOCYTES ABSOLUTE AUTO 0.86 K/mm3 (0.16-1.47); MONOCYTES PERCENT AUTO 12 % (4-13); Mean Corpuscular HGB 32.9 pg (26.0-34.0); Mean Corpuscular HGB Conc 33.1 g/dL (31.5-36.5); Mean Corpuscular Volume 100 fL (80-100); Mean Platelet Volume 11.6 fL (9.1-12.4); NEUTROPHILS ABSOLUTE AUTO 3.85 K/mm3 (1.96-9.15); NEUTROPHILS PERCENT AUTO 53 % (41-73); Platelet Count 137 K/mm3 (150-400); RDW Coefficient Variation 13.6 % (11.7-14.2); RDW Standard Deviation 49.9 fL (35.1-46.3); Red Blood Cell Count 3.77 M/mm3 (3.80-5.20)
[2019-04-14 11:46] LABS: Anion Gap 6 mmol/L (6-16); Blood Urea Nitrogen 23 mg/dL (8-24); Bun/Creatinine Ratio 27.7 (12.0-20.0); CO2, Blood 23 mmol/L (21-32); Calcium, Blood 8.5 mg/dL (8.5-10.1); Chloride, Blood 111 mmol/L (98-108); Creatinine, Blood 0.83 mg/dL (0.40-1.00); Glomerular Filtration Rate >60 (60-); Glucose, Blood 105 mg/dL (70-99); Potassium, Blood 4.9 mmol/L (3.5-5.5); Sodium, Blood 140 mmol/L (136-145)
--- NOTE | 2019-04-14 14:42 | NUR ---
PT REMAINS IN COMMERCIAL ENGINEER FOR PACER PLACEMENT
--- NOTE | 2019-04-14 17:35 | NUR ---
SHIFT NOTE PT ANXIOUS, NEEDS FREQUENT REASSURANCE AND REMINDING OF LIMITATIONS. BED ALARM IS ENGAGED PT EXPRESSES UNDERSTANDING OF CALL LIGHT USE BUT IS NOT CONSISTANT WITH ITS USE. NSR IN LOW TO MID 60s T/O SHIFT. PT WAS TAKEN FOR PACEMAKER PLACEMENT THIS AFTERNOON, RETURNED WITH DRESSING INTACT COVERED IN GUAZE AND TEGADERM IN PLACE WITH NO DRAINAGED NOTED TO DRESSING, INCISION SITE IS SOFT, SLING IS IN PLACE. PT NEEDS FREQUENT REMINDING OF LIMITATIONS OF LT ARM USE POST PACE MKAER PLACEMENT. PT OTHERWISE IS ALERTY, ORIENTED TO SELF AND PLACE. PT IS A 1 PERSON ASSIST WITH WALKER, BUT NEEDS CONSTANT REMINDING WHILE AMBULATING TO MAINTAIN SLOW GAIT.
[2019-04-15 04:07] LABS: BASOPHILS ABSOLUTE AUTO 0.03 K/mm3 (0.00-0.23); BASOPHILS PERCENT AUTO 0 % (0-2); EOSINOPHILS ABSOLUTE AUTO 0.25 K/mm3 (0.00-0.68); EOSINOPHILS PERCENT AUTO 3 % (0-6); Hematocrit 36.1 % (33.0-51.0); Hemoglobin 11.6 g/dL (11.5-16.0); IMMATURE GRAN ABSOLUTE AUTO 0.01 K/mm3 (0.00-0.10); IMMATURE GRAN PERCENT AUTO 0 % (0-1); LYMPHOCYTES ABSOLUTE AUTO 1.96 K/mm3 (0.84-5.20); LYMPHOCYTES PERCENT AUTO 23 % (21-46); MONOCYTES ABSOLUTE AUTO 0.86 K/mm3 (0.16-1.47); MONOCYTES PERCENT AUTO 10 % (4-13); Mean Corpuscular HGB 32.2 pg (26.0-34.0); Mean Corpuscular HGB Conc 32.1 g/dL (31.5-36.5); Mean Corpuscular Volume 100 fL (80-100); Mean Platelet Volume 10.2 fL (9.1-12.4); NEUTROPHILS ABSOLUTE AUTO 5.25 K/mm3 (1.96-9.15); NEUTROPHILS PERCENT AUTO 63 % (41-73); Platelet Count 113 K/mm3 (150-400); RDW Coefficient Variation 13.5 % (11.7-14.2); White Blood Cell Count 8.36 K/mm3 (4.00-11.30)
[2019-04-15 04:22] LABS: Anion Gap 6 mmol/L (6-16); Blood Urea Nitrogen 22 mg/dL (8-24); Bun/Creatinine Ratio 23.5 (12.0-20.0); CO2, Blood 25 mmol/L (21-32); Calcium, Blood 7.9 mg/dL (8.5-10.1); Chloride, Blood 108 mmol/L (98-108); Creatinine, Blood 0.94 mg/dL (0.40-1.00); Glomerular Filtration Rate >60 (60-); Glucose, Blood 133 mg/dL (70-99); Potassium, Blood 3.8 mmol/L (3.5-5.5); Sodium, Blood 139 mmol/L (136-145)
--- NOTE | 2019-04-15 06:20 | NUR ---
PCU NOC SHIFT SUMMARY PATIENT REMAINED IN NSR T/O SHIFT IN THE 80'S. PATIENT ALERT AND ORIENTED TO SELF, LOCATION, DATE OF , AND SITUATION - FORGETFUL AT TIMES, REDIRECTS EASILY. PATIENT REPORTS LEFT SHOULD PAIN, RELIEVED WITH ICE AND MEDICATION PER EMAR. ARM SLING IN PLACE T/O SHIFT - PATIENT EDUCATED TO POST PACER PRECAUTIONS AND VERBALIZED UNDERSTANDING. PATIENT TREATED T/O SIFTR FOR HYPERTENSION, POST PACER RECOVERY AND UTI PER ORDERS. NO ACUTE CHANGES T/O SHIFT. WILL CONTINUE TO MONITOR AND GIVE REPORT TO DAY SHIFT RN. CALL LIGHT W/I REACH.
--- NOTE | 2019-04-15 12:24 | NUR ---
[facility] CALLED FOR POST PROCEEDURE D/C CONSULT
--- NOTE | 2019-04-15 13:02 | NUR ---
DR MARIN OFFICE CALLED STS THAT PT IS ABLE TO BE D/C, JAZYMNE FROM [place] D/C PLANNING HAS BEEN TO SEE PT. FAMILY WITH CONCERNS OF STATED URINARY RETENTION. V/O FROM DR MILLIGAN FOR BLADDER SCAN
--- NOTE | 2019-04-15 13:08 | NUR ---
PT UP TO BEDSIDE COMMODE WITH 1 PERSON STANDBY ASSIST
--- NOTE | 2019-04-15 13:44 | NUR ---
DR MILLIGAN AT BEDSIDE, DR MILLIGAN MAKE AWARE OF POST VOID RETENTION
--- NOTE | 2019-04-15 14:02 | NUR ---
Met pt . sitting up in her chair and talking with her daughter and the nurse offered prayers and support
[2019-04-15 16:37] LABS: Source, Urine Catheter
[2019-04-15 16:50] LABS: Bilirubin, Urine Neg (Neg); Blood, Urine 1+ (Neg); Glucose Qualitative, Urine Neg (Neg); Ketones, Urine Neg (Neg); Leukocyte Esterase, Urine 3+ (Neg); Nitrite, Urine Neg (Neg); Protein, Urine Neg (Neg); Specific Gravity, Urine 1.005 (1.003-1.022); Urobilinogen, Urine NORM (Normal)
[2019-04-15 16:57] LABS: Appearance, Urine Clear (Clear); Color, Urine Pale Yellow (P-Yellow)
[2019-04-15 16:59] LABS: Bacteria Rare /hpf; Red Blood Cells, Urine 0-2 /hpf (0-2); Squamous Epithelial Cells Rare /hpf (Few)
[2019-04-15] MEDS ORDERED: SOTO80 PO (17:04)
[2019-04-15] MEDS ORDERED: Fludrocortison0.1 MG PO (17:05)
--- NOTE | 2019-04-15 18:24 | NUR ---
D/C NOTE PT THOROUGHLY EDUCATED ABOUT MEDICATIONS AND POTENTIAL SIDE EFFECTS, PT AND FAMILY EXPRESSED UNDERSTANDING OF TEACHING. IV REMOVED INTACT. ALL VALUABLE RETURNED. PT AND FAMIY DENY FURTHER NEEDS. PROVIDED WITH ALL SCHEDULED CONSULTS AND REFERRALS
== END 2019-04-15 18:46 | disposition home or self-care (01) | DRG 243 ==
LOC: ER 10:53 → MEDS 10:54 → PCU 04-13 09:14
PROVIDERS: Emergency Medicine; Family Medicine; Internal Medicine Cardiovascular Disease; ADMIT Internal Medicine
PROC: 0JH606Z Insertion of Pacemaker, Dual Chamber into Chest Subcutaneous Tissue and Fascia, Open Approach (ICD-10-PCS; principal; 2019-04-14)
PROC: 02HK3JZ Insertion of Pacemaker Lead into Right Ventricle, Percutaneous Approach (ICD-10-PCS; 2019-04-14)
PROC: 02H63JZ Insertion of Pacemaker Lead into Right Atrium, Percutaneous Approach (ICD-10-PCS; 2019-04-14)
DX: I49.5 Sick sinus syndrome (principal); N17.9 Acute kidney failure, unspecified; I50.32 Chronic diastolic (congestive) heart failure; I48.92 Unspecified atrial flutter; Z66 Do not resuscitate; I95.1 Orthostatic hypotension; K21.9 Gastro-esophageal reflux disease without esophagitis; M81.0 Age-related osteoporosis without current pathological fracture; I35.0 Nonrheumatic aortic (valve) stenosis; E78.5 Hyperlipidemia, unspecified; E86.0 Dehydration; J44.9 Chronic obstructive pulmonary disease, unspecified; I48.0 Paroxysmal atrial fibrillation; I34.0 Nonrheumatic mitral (valve) insufficiency; Z90.09 Acquired absence of other part of head and neck; I25.10 Atherosclerotic heart disease of native coronary artery without angina pectoris; Z79.83 Long term (current) use of bisphosphonates; R33.8 Other retention of urine; Z87.891 Personal history of nicotine dependence
CPT/HCPCS: 33208; 36415; 51702; 71045; 71046; 80048; 80053; 81001; 84484; 85025; 87077; 87086; 87186; 93005; 93010; 97110; 97116; 97162; 97164; 97166; 97168; 97530; 97535; 99152; 99153; 99285-25; A9270; C1785; C1898; J0360; J0690; J1644; J1650; J2250; J3010; J7030; J7040; Q9967

== ENCOUNTER 2019-04-26 05:02 | Inpatient (IN) | payer MEDICARE, OTHER ==
[~2019-04-26] VITALS: Ht 157.5 cm; Wt 67.3 kg
[~2019-04-26 05:02] MED LIST changes: +Fludrocortison0.1 MG PO; +SOTO80 PO
[2019-04-26 05:30] LABS: BASOPHILS ABSOLUTE AUTO 0.03 K/mm3 (0.00-0.23); BASOPHILS PERCENT AUTO 0 % (0-2); EOSINOPHILS ABSOLUTE AUTO 0.35 K/mm3 (0.00-0.68); EOSINOPHILS PERCENT AUTO 5 % (0-6); Hematocrit 34.6 % (33.0-51.0); Hemoglobin 11.2 g/dL (11.5-16.0); IMMATURE GRAN ABSOLUTE AUTO 0.02 K/mm3 (0.00-0.10); IMMATURE GRAN PERCENT AUTO 0 % (0-1); LYMPHOCYTES ABSOLUTE AUTO 2.05 K/mm3 (0.84-5.20); LYMPHOCYTES PERCENT AUTO 27 % (21-46); MONOCYTES ABSOLUTE AUTO 0.78 K/mm3 (0.16-1.47); MONOCYTES PERCENT AUTO 10 % (4-13); Mean Corpuscular HGB 32.2 pg (26.0-34.0); Mean Corpuscular HGB Conc 32.4 g/dL (31.5-36.5); Mean Corpuscular Volume 99 fL (80-100); Mean Platelet Volume 9.3 fL (9.1-12.4); NEUTROPHILS ABSOLUTE AUTO 4.45 K/mm3 (1.96-9.15); NEUTROPHILS PERCENT AUTO 58 % (41-73); Platelet Count 160 K/mm3 (150-400); RDW Coefficient Variation 13.2 % (11.7-14.2); RDW Standard Deviation 48.1 fL (35.1-46.3); Red Blood Cell Count 3.48 M/mm3 (3.80-5.20); White Blood Cell Count 7.68 K/mm3 (4.00-11.30)
[2019-04-26 05:50] LABS: Alanine Aminotransfer (ALT/SGP 19 U/L (12-78); Albumin, Blood 3.1 g/dL (3.4-5.0); Albumin/Globulin Ratio 0.9 (0.8-1.8); Alk Phos 47 U/L (50-136); Anion Gap 7 mmol/L (6-16); Aspartate Aminotrans (AST/SGOT 24 U/L (12-37); Bilirubin, Total 0.5 mg/dL (0.1-1.0); Blood Urea Nitrogen 15 mg/dL (8-24); Bun/Creatinine Ratio 16.9 (12.0-20.0); CO2, Blood 25 mmol/L (21-32); Calcium, Blood 8.1 mg/dL (8.5-10.1); Chloride, Blood 109 mmol/L (98-108); Creatinine, Blood 0.89 mg/dL (0.40-1.00); Globulin, Blood 3.5 g/dL (2.2-4.0); Glomerular Filtration Rate >60 (60-); Glucose, Blood 112 mg/dL (70-99); Potassium, Blood 3.4 mmol/L (3.5-5.5); Sodium, Blood 141 mmol/L (136-145); Total Protein, Blood 6.6 g/dL (6.4-8.2); Troponin I 0.016 ng/mL (0.000-0.040)
[2019-04-26] MEDS ORDERED: CLON.1 PO (06:30)
[2019-04-26] MEDS ORDERED: LISI20 PO (06:30)
[2019-04-26] MEDS ORDERED: PARO20 PO (06:30)
[2019-04-26] MEDS ORDERED: ELIQUIS5 MG PO (06:31)
[2019-04-26] MEDS ORDERED: CARV3.125 PO (06:31)
[2019-04-26] MEDS ORDERED: VALA500 PO (06:34)
[2019-04-26] MEDS ORDERED: METO25ER PO (06:34)
[2019-04-26] MEDS ORDERED: Fludrocortison0.1 MG PO (06:35)
[2019-04-26] MEDS ORDERED: SOTO80 PO (06:35)
--- NOTE | 2019-04-26 12:58 | NUR ---
Echocardiogram completed.
[2019-04-26] MEDS ORDERED: ALEN70 PO (14:43)
--- NOTE | 2019-04-26 15:52 | NUR ---
PT CONTINUES WITH HTN, DR. MILLIGAN NOTIFED, RECIEVED ORDERS FOR APRESOLINE 25MG PO BID.
--- NOTE | 2019-04-26 17:55 | NUR ---
PT WITH NEW ONSET DYSPNEA WITH PRODUCTIVE COUGH OF YELLOW TINGED THIN SPUTUM. LUNGS WITH CRACKLES THROUGHOUT, LUNGS WERE CLEAR THIS MORNING WITH ASSESSMENT AND PT WAS ON RA. PT PLACED ON 2L O2 NC, SPO2 93% AT THIS TIME. DR. MILLIGAN NOTIFIED, RECIEVED ORDERS FOR LASIX 40MG IV NOW, CXR IN AM, AND SPUTUM CULTURE.
--- NOTE | 2019-04-26 18:32 | NUR ---
SHIFT SUMMARY. IV LASIX GIVEN, PT INSTRUCTED ON OBTAINING SPUTUM SAMPLE.
[2019-04-27 05:32] LABS: BASOPHILS ABSOLUTE AUTO 0.02 K/mm3 (0.00-0.23); BASOPHILS PERCENT AUTO 0 % (0-2); EOSINOPHILS ABSOLUTE AUTO 0.17 K/mm3 (0.00-0.68); EOSINOPHILS PERCENT AUTO 2 % (0-6); Hematocrit 34.4 % (33.0-51.0); Hemoglobin 11.4 g/dL (11.5-16.0); IMMATURE GRAN ABSOLUTE AUTO 0.03 K/mm3 (0.00-0.10); IMMATURE GRAN PERCENT AUTO 0 % (0-1); LYMPHOCYTES ABSOLUTE AUTO 2.28 K/mm3 (0.84-5.20); LYMPHOCYTES PERCENT AUTO 26 % (21-46); MONOCYTES ABSOLUTE AUTO 0.63 K/mm3 (0.16-1.47); MONOCYTES PERCENT AUTO 7 % (4-13); Mean Corpuscular HGB 32.7 pg (26.0-34.0); Mean Corpuscular HGB Conc 33.1 g/dL (31.5-36.5); Mean Corpuscular Volume 99 fL (80-100); Mean Platelet Volume 9.2 fL (9.1-12.4); NEUTROPHILS ABSOLUTE AUTO 5.63 K/mm3 (1.96-9.15); NEUTROPHILS PERCENT AUTO 64 % (41-73); Platelet Count 168 K/mm3 (150-400); RDW Coefficient Variation 13.4 % (11.7-14.2); RDW Standard Deviation 48.2 fL (35.1-46.3); Red Blood Cell Count 3.49 M/mm3 (3.80-5.20); White Blood Cell Count 8.76 K/mm3 (4.00-11.30)
--- NOTE | 2019-04-27 05:34 | NUR ---
SHIFT SUMMARY A/O, ABLE TO MAKE NEEDS KNOWN. COOPERATIVE WITH CARE. CALLS AND ANSWERS QUESTIONS APPROPRIATELY. NO C/O PAIN/DISCOMFORT. AT BEGINNING OF SHIFT; PATIENT APPEARED VERY WEAK UNABLE ABLE TO STAND OR AMBULATE WELL. MID TO END OF SHIFT PATIENT UP WITH SBA AND FWW TO BATHROOM. STATES FEELING MUCH BETTER AND IS ANTICIPATING GOING HOME. APPEARED TO REST SOME OF SHIFT. VSS/AFEBRILE. NEW 20G IV; REPLACING FIELD START. NO OTHER ACUTE CHANGES. BED REMAINED IN LOWEST POSITION. CALL LIGHT AND BELONGINGS WITHIN REACH. WCTM. REPORT TO ONCOMING RN.
[2019-04-27 05:57] LABS: Albumin, Blood 3.3 g/dL (3.4-5.0); Albumin/Globulin Ratio 0.9 (0.8-1.8); Bilirubin, Total 0.7 mg/dL (0.1-1.0); Calcium, Blood 8.2 mg/dL (8.5-10.1); Creatinine, Blood 0.95 mg/dL (0.40-1.00); Globulin, Blood 3.7 g/dL (2.2-4.0); Potassium, Blood 3.2 mmol/L (3.5-5.5)
[2019-04-27 06:13] LABS: Troponin I 0.794 ng/mL (0.000-0.040)
--- NOTE | 2019-04-27 07:49 | NUR ---
PT TO IMAGING FOR CXR. PT ASSISTED WALKING IN [place] THIS AM BY BEVERAGE SPECIALIST WITH FWW ON RA, SPO2 96% POST AMBULATION, NO DYSPNEA, STABLE GAIT. PT DENIES CHEST PAIN.
--- NOTE | 2019-04-27 08:18 | NUR ---
DR. MILLIGAN NOTIFIED OF ELEVATED TROPININ, HE ORDERED STAT EKG AND REQUESTED THAT CARDIOLOGY BE NOTIFIED.
--- NOTE | 2019-04-27 17:15 | NUR ---
SHIFT SUMMARY. A&OX3, SBA WITH FWW TO BATHROOM, PT FORGETS LIMIATIONS AT TIMES, BED ALARM ACTIVATED FOR SAFETY. PT DENIES SOB, N/V, CHEST PAIN, AND PAIN DURING SHIFT. ON RA, LUNGS CLEAR THROUGHOUT. TROPONIN TRENDING DOWN, PROVIDER READ EKG ON CHART NON ACUTE. NO N/V, GOOD MEAL INTAKE.
[2019-04-28 05:19] LABS: BASOPHILS ABSOLUTE AUTO 0.04 K/mm3 (0.00-0.23); BASOPHILS PERCENT AUTO 1 % (0-2); EOSINOPHILS PERCENT AUTO 5 % (0-6); Hematocrit 37.1 % (33.0-51.0); Hemoglobin 12.1 g/dL (11.5-16.0); IMMATURE GRAN ABSOLUTE AUTO 0.03 K/mm3 (0.00-0.10); IMMATURE GRAN PERCENT AUTO 0 % (0-1); LYMPHOCYTES ABSOLUTE AUTO 2.73 K/mm3 (0.84-5.20); LYMPHOCYTES PERCENT AUTO 31 % (21-46); MONOCYTES PERCENT AUTO 14 % (4-13); Mean Corpuscular HGB 31.8 pg (26.0-34.0); Mean Corpuscular HGB Conc 32.6 g/dL (31.5-36.5); Mean Corpuscular Volume 97 fL (80-100); Mean Platelet Volume 9.3 fL (9.1-12.4); NEUTROPHILS ABSOLUTE AUTO 4.37 K/mm3 (1.96-9.15); NEUTROPHILS PERCENT AUTO 50 % (41-73); Platelet Count 188 K/mm3 (150-400); RDW Coefficient Variation 13.3 % (11.7-14.2); RDW Standard Deviation 47.7 fL (35.1-46.3); Red Blood Cell Count 3.81 M/mm3 (3.80-5.20); White Blood Cell Count 8.77 K/mm3 (4.00-11.30)
[2019-04-28 05:38] LABS: Bun/Creatinine Ratio 23.1 (12.0-20.0); Calcium, Blood 8.5 mg/dL (8.5-10.1); Creatinine, Blood 0.95 mg/dL (0.40-1.00); Potassium, Blood 3.7 mmol/L (3.5-5.5)
--- NOTE | 2019-04-28 06:01 | NUR ---
SHIFT SUMMARY A/O, ABLE TO MAKE NEEDS KNOWN. COOPERATIVE WITH CARE; HOWEVER, RUDE TO SELECT STAFF. PATIENT REMINDED THAT ALL STAFF ARE HERE TO HELP CARE FOR HER AND POLITELY REQUESTED THAT SHE ADHERE FROM BEING RUDE; APPEARED RECEPTIVE. ASKED FOR MULTIPLE REQUESTS FROM STAFF T/O SHIFT. SBA WITH FWW; GAIT STEADY. REMAINED W/O O2 THROUGHOUT SHIFT WITH SATURATIONS >90% AND NO C/O SOB OR FEELING DYSPNEIC WITH ACTIVITY. APPEARED TO REST OFF AND ON T/O NIGHT; RESTLESS AT BEGINNING OF SHIFT. SURGICAL INCISION TO LCW ERYTHMATOUS; PATIENT STATES ITCHY, GIVEN BENADRYL. CLEANSED AND DRESSED WITH NON-ADHERENT PAD AND PAPER TAPE, NO COMPLAINTS SINCE. PHOTO TAKEN AND PLACED IN CHART. NO OTHER ACUTE CHANGES NOTED OVERNIGHT. STATES BORED AND IS ANTICIPATING DISCHARGE. WCTM. BED IN LOWEST POSITION; ALARM ON. CALL LIGHT AND BELONGINGS WITHIN REACH. REPORT TO ONCOMING RN.
--- NOTE | 2019-04-28 16:10 | NUR ---
TROPONIN LEVEL CALLED TO DR BRAND AT 1600. THIS NURSE CALLED DR. GONSALEZ'S OFFICE (AT [phone]) PER DR BRAND'S REQUEST TO INQUIRE ABOUT IF HE THINKS PT IS APPROPRIATE FOR DC FROM CARDIOLOGY STANDPOINT. NURSE ENTERED PT ROOM AND PT'S CAREGIVER WAS IN ROOM. ([phone]) WHO EXPRESSED HER CONCERNS ABOUT PT DISCHARGING HOME. SHE STATES THAT PT'S HOME IS "FULL OF BOXES" AND THAT PT IS REQUIRING MORE TIME AND HELP THAN SHE ORIGINALLY COMMITED TO. SHE THINKS THE PT WOULD BENEFIT FROM MORE HELP AT HOME. SHE STATES THAT PT RECENTLY MOVED TO [facility]. DRAWER IN PLAIN LOOM MALLORY ALSO SPOKE WITH GARTH, SEE NOTE.
--- NOTE | 2019-04-28 17:59 | NUR ---
SHIFT SUMMARY PT AXO, THOUGH ARGUMENTATIVE AND ACCUSATORY THROUGHOUT THE DAY. PT EAGER TO BE DISCHARGED HOME THOUGH DISCUSSION WITH CAREGIVER RAISED CONCERNS ABOUT SAFE DC PLAN. DC COORDINATOR AWARE AND DR BRAND AWARE. SEE PRIOR NOTE. VSS. PT UP WITH SBA WITH STEADY GAIT THOUGH PT IMPULSIVE WITH HX OF FALLS. IV PATENT AND SALINE LOCKED. BED IN LOW POSITION, CALL LIGHT WITHIN REACH. DC'D FLUID RESTRICTION PER DR BRAND AND DR GONSALEZ.
--- NOTE | 2019-04-29 04:28 | NUR ---
SHIFT SUMMARY: PT IS ALERT AND ORIENTED. PT IS CALM AND COOPERATIVE WITH CARE. PT CALLS APPROPRIATELY. PT IS A STANDBY ASSIST TO THE BATHROOM. PT REPORTED BL LEG PAIN, GAVE PRN TYLENOL. PT DENIES NAUSEA, VOMITING, AND SOB. PT HAD DIFFICULTY SLEEPING OVERNIGHT, SLEPT LITTLE. NO ACUTE CHANGES OR COMPLICATIONS THIS SHIFT. WILL CONTINUE TO MONITOR.
[2019-04-29 05:14] LABS: BASOPHILS ABSOLUTE AUTO 0.03 K/mm3 (0.00-0.23); BASOPHILS PERCENT AUTO 0 % (0-2); EOSINOPHILS ABSOLUTE AUTO 0.47 K/mm3 (0.00-0.68); EOSINOPHILS PERCENT AUTO 5 % (0-6); Hematocrit 36.1 % (33.0-51.0); Hemoglobin 11.9 g/dL (11.5-16.0); IMMATURE GRAN ABSOLUTE AUTO 0.02 K/mm3 (0.00-0.10); IMMATURE GRAN PERCENT AUTO 0 % (0-1); LYMPHOCYTES ABSOLUTE AUTO 2.74 K/mm3 (0.84-5.20); LYMPHOCYTES PERCENT AUTO 30 % (21-46); MONOCYTES ABSOLUTE AUTO 1.24 K/mm3 (0.16-1.47); MONOCYTES PERCENT AUTO 13 % (4-13); Mean Corpuscular HGB 31.9 pg (26.0-34.0); Mean Corpuscular Volume 97 fL (80-100); Mean Platelet Volume 9.6 fL (9.1-12.4); NEUTROPHILS ABSOLUTE AUTO 4.77 K/mm3 (1.96-9.15); NEUTROPHILS PERCENT AUTO 51 % (41-73); Platelet Count 212 K/mm3 (150-400); RDW Coefficient Variation 13.3 % (11.7-14.2); RDW Standard Deviation 47.4 fL (35.1-46.3); Red Blood Cell Count 3.73 M/mm3 (3.80-5.20); White Blood Cell Count 9.27 K/mm3 (4.00-11.30)
[2019-04-29 05:30] LABS: Anion Gap 7 mmol/L (6-16); Blood Urea Nitrogen 24 mg/dL (8-24); Bun/Creatinine Ratio 26.7 (12.0-20.0); CO2, Blood 26 mmol/L (21-32); Calcium, Blood 8.3 mg/dL (8.5-10.1); Chloride, Blood 108 mmol/L (98-108); Glomerular Filtration Rate >60 (60-); Glucose, Blood 119 mg/dL (70-99); Potassium, Blood 3.5 mmol/L (3.5-5.5); Sodium, Blood 141 mmol/L (136-145)
[2019-04-29] MEDS ORDERED: FURO20 PO (15:48)
[2019-04-29] MEDS ORDERED: LISI20 PO (15:49)
[2019-04-29] MEDS ORDERED: HYDRA25 PO (15:49)
[2019-04-29] MEDS ORDERED: POTASSIUM CHLO20 MEQ PO (15:50)
--- NOTE | 2019-04-29 16:38 | NUR ---
DISCHARGE DISCHARGE MEDICATIONS AND INSTRUCTIONS EXPLAINED TO PATIENT. PATIENT STATED UNDERSTANDING. PATIENT WILL BE CALLED AT HOME BY TOY CUT IN STATION OPERATOR WITH FOLLOW UP APPOINMTNET WITH PCP. CARDIOLOGY FOLLOW UP WITH DR. GONSALEZ SCHEDULED FOR MAY 06. IV REMOVED WITHOUT DIFFICULTY. BELONGINGS WITH PATIENT. PATIENT TRANSFERED TO PRIVATE VEHICLE VIA WHEELCHAIR.
== END 2019-04-29 16:05 | disposition home health service (06) | DRG 293 ==
LOC: ER 05:02 → MEDS 06:02
PROVIDERS: Emergency Medicine; ADMIT Family Medicine
DX: I11.0 Hypertensive heart disease with heart failure (principal); J44.9 Chronic obstructive pulmonary disease, unspecified; I50.43 Acute on chronic combined systolic (congestive) and diastolic (congestive) heart failure; F41.9 Anxiety disorder, unspecified; Z87.891 Personal history of nicotine dependence; I48.0 Paroxysmal atrial fibrillation; K21.9 Gastro-esophageal reflux disease without esophagitis; M81.0 Age-related osteoporosis without current pathological fracture; I35.0 Nonrheumatic aortic (valve) stenosis; E78.5 Hyperlipidemia, unspecified; Z90.09 Acquired absence of other part of head and neck; Z66 Do not resuscitate; I49.5 Sick sinus syndrome; Z95.0 Presence of cardiac pacemaker; E87.6 Hypokalemia
CPT/HCPCS: 36415; 71046; 80048; 80053; 83880; 84484; 85025; 93005; 93010; 93306; 94640; 96374; 97116; 97162; 97165; 97530; 99285-25; A9270; J1940; Q0163

== ENCOUNTER 2019-05-05 08:10 | Emergency (ER) | payer MEDICARE ==
[~2019-05-05] VITALS: Ht 162.6 cm; Wt 66.2 kg
[~2019-05-05 08:10] MED LIST changes: +FURO20 PO; +HYDRA25 PO; +METO25ER PO; +POTASSIUM CHLO20 MEQ PO; +VALA500 PO
[2019-05-05 08:47] LABS: BASOPHILS ABSOLUTE AUTO 0.04 K/mm3 (0.00-0.23); BASOPHILS PERCENT AUTO 1 % (0-2); EOSINOPHILS ABSOLUTE AUTO 0.27 K/mm3 (0.00-0.68); EOSINOPHILS PERCENT AUTO 4 % (0-6); Hematocrit 32.1 % (33.0-51.0); Hemoglobin 10.4 g/dL (11.5-16.0); IMMATURE GRAN ABSOLUTE AUTO 0.03 K/mm3 (0.00-0.10); IMMATURE GRAN PERCENT AUTO 1 % (0-1); LYMPHOCYTES ABSOLUTE AUTO 2.43 K/mm3 (0.84-5.20); LYMPHOCYTES PERCENT AUTO 39 % (21-46); MONOCYTES PERCENT AUTO 13 % (4-13); Mean Corpuscular HGB 31.6 pg (26.0-34.0); Mean Corpuscular HGB Conc 32.4 g/dL (31.5-36.5); Mean Corpuscular Volume 98 fL (80-100); Mean Platelet Volume 9.6 fL (9.1-12.4); NEUTROPHILS ABSOLUTE AUTO 2.65 K/mm3 (1.96-9.15); NEUTROPHILS PERCENT AUTO 43 % (41-73); Platelet Count 168 K/mm3 (150-400); RDW Standard Deviation 45.8 fL (35.1-46.3); Red Blood Cell Count 3.29 M/mm3 (3.80-5.20); White Blood Cell Count 6.22 K/mm3 (4.00-11.30)
[2019-05-05 09:12] LABS: Alanine Aminotransfer (ALT/SGP 27 U/L (12-78); Albumin, Blood 3.2 g/dL (3.4-5.0); Alk Phos 42 U/L (50-136); Anion Gap 6 mmol/L (6-16); Aspartate Aminotrans (AST/SGOT 26 U/L (12-37); Bilirubin, Total 0.4 mg/dL (0.1-1.0); Blood Urea Nitrogen 22 mg/dL (8-24); Bun/Creatinine Ratio 25.2 (12.0-20.0); CO2, Blood 26 mmol/L (21-32); Calcium, Blood 8.8 mg/dL (8.5-10.1); Chloride, Blood 111 mmol/L (98-108); Creatinine, Blood 0.87 mg/dL (0.40-1.00); Globulin, Blood 3.2 g/dL (2.2-4.0); Glomerular Filtration Rate >60 (60-); Glucose, Blood 109 mg/dL (70-99); Potassium, Blood 3.8 mmol/L (3.5-5.5); Sodium, Blood 143 mmol/L (136-145); Total Protein, Blood 6.4 g/dL (6.4-8.2); Troponin I 0.016 ng/mL (0.000-0.040)
[2019-05-05] MEDS ORDERED: CARV3.125 PO (09:20)
--- NOTE | 2019-05-05 12:25 | NUR ---
Pacemaker check in ED with Roxann. Appears working normally. Results to ED 2 RN
== END 2019-05-05 13:15 | disposition home or self-care (01) ==
LOC: ER 08:10
PROVIDERS: Physician Assistant
DX: R06.02 Shortness of breath (principal); I11.0 Hypertensive heart disease with heart failure; I50.32 Chronic diastolic (congestive) heart failure; I48.20 Chronic atrial fibrillation, unspecified; K21.9 Gastro-esophageal reflux disease without esophagitis; F32.9 Major depressive disorder, single episode, unspecified; F41.9 Anxiety disorder, unspecified; J44.9 Chronic obstructive pulmonary disease, unspecified; E78.5 Hyperlipidemia, unspecified; Z95.0 Presence of cardiac pacemaker; Z88.8 Allergy status to other drugs, medicaments and biological substances; Z88.0 Allergy status to penicillin; Z88.6 Allergy status to analgesic agent; Z88.1 Allergy status to other antibiotic agents; Z88.2 Allergy status to sulfonamides; Z88.5 Allergy status to narcotic agent; Z79.899 Other long term (current) drug therapy; Z79.01 Long term (current) use of anticoagulants; Z87.891 Personal history of nicotine dependence
CPT/HCPCS: 36415; 71046; 80053; 83880; 84484; 85025; 93005; 93010; 93280; 96374; 99284-25

== ENCOUNTER 2019-05-24 05:52 | Observation (INO) | payer MEDICARE, OTHER ==
[~2019-05-24] VITALS: Ht 162.6 cm; Wt 68.9 kg
[~2019-05-24 05:52] MED LIST changes: +PAROXETINE PO
[2019-05-24 06:36] LABS: BASOPHILS ABSOLUTE AUTO 0.04 K/mm3 (0.00-0.23); BASOPHILS PERCENT AUTO 0 % (0-2); EOSINOPHILS ABSOLUTE AUTO 0.33 K/mm3 (0.00-0.68); EOSINOPHILS PERCENT AUTO 3 % (0-6); Hematocrit 33.8 % (33.0-51.0); Hemoglobin 10.8 g/dL (11.5-16.0); IMMATURE GRAN ABSOLUTE AUTO 0.03 K/mm3 (0.00-0.10); IMMATURE GRAN PERCENT AUTO 0 % (0-1); LYMPHOCYTES PERCENT AUTO 26 % (21-46); MONOCYTES ABSOLUTE AUTO 1.02 K/mm3 (0.16-1.47); MONOCYTES PERCENT AUTO 10 % (4-13); Mean Corpuscular HGB 31.8 pg (26.0-34.0); Mean Corpuscular Volume 99 fL (80-100); Mean Platelet Volume 10.1 fL (9.1-12.4); NEUTROPHILS ABSOLUTE AUTO 6.16 K/mm3 (1.96-9.15); NEUTROPHILS PERCENT AUTO 61 % (41-73); Platelet Count 156 K/mm3 (150-400); RDW Coefficient Variation 13.1 % (11.7-14.2); RDW Standard Deviation 47.7 fL (35.1-46.3); White Blood Cell Count 10.18 K/mm3 (4.00-11.30)
[2019-05-24 06:54] LABS: Albumin, Blood 3.4 g/dL (3.4-5.0); Albumin/Globulin Ratio 1.1 (0.8-1.8); Bilirubin, Total 0.5 mg/dL (0.1-1.0); Bun/Creatinine Ratio 18.8 (12.0-20.0); Calcium, Blood 7.6 mg/dL (8.5-10.1); Creatinine, Blood 0.96 mg/dL (0.40-1.00); Globulin, Blood 3.2 g/dL (2.2-4.0); Potassium, Blood 3.4 mmol/L (3.5-5.5); Total Protein, Blood 6.6 g/dL (6.4-8.2); Troponin I 0.028 ng/mL (0.000-0.040)
[2019-05-24 07:02] LABS: International Normalized Ratio 1.05; Prothrombin Time Results 11.1 Sec (9.7-11.5)
--- NOTE | 2019-05-24 10:02 | NUR ---
NURSING PCU DAYSHIFT: Assumed care of pt at approx 0915. Arrived from ER via gurney accompanied by RN, dayana to unit bed w/SBA, tolerated well. A/O, fairly cooperative w/care, can be irritable at times and occ yells/makes demands at staff, improved behavior w/redirection. C/O 4-5/10 b/l chronic knee pain, treating w/meds as ordered and positioning. Skin is fragile though intact w/no breakdown noted. Tele in place, NSR, pacer present in LCW, no c/o CP/pressure, SBP 140's at arrival. L/S w/bibasilar crackles, c/o dyspnea w/exertion, O2 sat upper 90's on RA, occ moist/COLLECTIONS ASSISTANT cough. Abd SNT, BT+, c/o constipation, voiding w/o difficulty per pt. PIV x2, s/l. No s/s of acute distress at this time. Awaiting rounding and new d/o from PMD. Pt denies any current needs or questions regarding plan of care. Call light in reach and pt is able to use w/o difficulty. Cont to monitor for changes.
[2019-05-24 10:50] LABS: Source, Urine Clean Catch
[2019-05-24 10:56] LABS: Bilirubin, Urine Neg (Neg); Blood, Urine Neg (Neg); Glucose Qualitative, Urine Neg (Neg); Ketones, Urine Neg (Neg); Leukocyte Esterase, Urine 3+ (Neg); Nitrite, Urine Neg (Neg); Protein, Urine Neg (Neg); Specific Gravity, Urine 1.015 (1.003-1.022); Urobilinogen, Urine NORM (Normal)
[2019-05-24 11:02] LABS: Appearance, Urine Clear (Clear); Color, Urine Yellow (P-Yellow)
[2019-05-24 11:04] LABS: Bacteria Few /hpf; Red Blood Cells, Urine 0-2 /hpf (0-2); Squamous Epithelial Cells Few /hpf (Few)
[2019-05-24] MEDS ORDERED: ATEN25 PO (17:40)
[2019-05-24] MEDS ORDERED: LOSA50 PO (17:41)
[2019-05-24] MEDS ORDERED: Fludrocortison0.1 MG PO (17:55)
[2019-05-24] MEDS ORDERED: OMEPRAZOLE PO (17:55)
[2019-05-24] MEDS ORDERED: ATOR10 PO (17:56)
[2019-05-24] MEDS ORDERED: SPIR25 (17:58)
--- NOTE | 2019-05-24 18:51 | NUR ---
NURSING PCU DAYSHIFT SUMMARY: No significant changes noted t/o the shift. VS remained stable, rhythm unchanged. Seen by PMD and harness puller, discharge home d/o received. Pt denies any questions/needs at this time, call light in reach, cont to monitor until rpt is given to NOC RN.
[2019-05-25 04:13] LABS: Anion Gap 8 mmol/L (6-16); Blood Urea Nitrogen 12 mg/dL (8-24); Bun/Creatinine Ratio 15.2 (12.0-20.0); CO2, Blood 23 mmol/L (21-32); Calcium, Blood 7.6 mg/dL (8.5-10.1); Chloride, Blood 112 mmol/L (98-108); Creatinine, Blood 0.79 mg/dL (0.40-1.00); Glomerular Filtration Rate >60 (60-); Glucose, Blood 100 mg/dL (70-99); Potassium, Blood 4.1 mmol/L (3.5-5.5); Sodium, Blood 143 mmol/L (136-145)
--- NOTE | 2019-05-25 06:54 | NUR ---
PROVIDER NOTIFIED 0506 DR GATES CALLED. PT NOTED TO HAVE INCREASING HR INTO THE 150'S 160'S AND APPEARS TO HAVE CONVERTED INTO AFIB, BP 180'S SYSTOLICALLY. PT APPEARING PALE. 5MG IV LOPRESSOR ORDERED AND GIVEN. THIS WAS SUCCESFUL AT LOWERING RATE AND BP FOR A SHORT PERIOD OF TIME. 0640 PROVIDER NOTIFIED THAT BP BEGINNING TO RISE AGAIN INTO 140'S AND HR RISING INTO 140'S. PROVIDER PLACES ORDER FOR CARDIZEM GTT. NOTED THAT PT HAD STATED PREVIOUS ALLERGY TO AMLODIPINE WHICH SHOWED A WARNING BEFORE ORDERING. PT STATES NOT KNOWING WHY THIS WAS IN THE CHART. GTT ORDER PLACED ORDERED. AWAITING FROM PHARMACY NOW.
--- NOTE | 2019-05-25 07:00 | NUR ---
END OF SHIFT SUMMARY PT AXO T/O SHIFT. DENYING CP T/O NIGHT. VSS UNTIL EXCEPT SOME HTN 0500, SEE PROVIDER NOTE. UP TUNTIL AFIB, PT HAD REMAINED IN NSR. HAS REQUIRED A COUPLE RT TREATMENTS. HAS HAD A FEW LARGE VOIDS. PT HAS BEEN COMPLIANT WITH STAFF AND HAS BEEN VERY PLEASANT. PT CURRENTLY RECEIVING RT TREATMENT, AWAITING CARDIZEM GTT. REPORT BEING GIVEN TO RN. BED IN LOWEST POSITION. CALL LIGHT WITHIN REACH, USES APPROPRIATELY.
--- NOTE | 2019-05-25 07:50 | NUR ---
PT CHART NOTED TO BE MISSING SINCE BEGINNING OF SHIFT. DAY NURSE AWARE.
[2019-05-25] MEDS ORDERED: DILT180 PO (15:11)
--- NOTE | 2019-05-25 16:41 | NUR ---
DISCHARGE ORDERS RECEIVED AND SIGNED PT EDUCATED AND VERBALIZED UNDERSTANDING OF ALL DISCHARGE ORDERS INCLUDING MD FOLLOW-UP AND PHARMACY REFERRAL. PT'S IV DC'D WITHIN NORMAL LIMITS, APPLIED WITH GAUZE WRAPPED WITH COBAN. PT RECEIVED FINAL MEDICATION PER MD ORDER WITH NO OBVIOUS OR REPORTED ADVERSE EFFECTS. PT LEFT UNIT WITH ALL PERSONAL BELONGINGS AND WAS ESCORTED TO ER ENTRANCE IN WHEELCHAIR BY LATASHA ULLOA. PT WAS SUPERVISED UNTIL HER EXPECTED RIDE (JORDAN) ARRIVED TO TAKE HER HOME.
== END 2019-05-25 16:41 | disposition home or self-care (01) ==
LOC: ER 05:52 → PCU 05:53
PROVIDERS: Emergency Medicine; ADMIT Internal Medicine
DX: R07.89 Other chest pain (principal); I11.0 Hypertensive heart disease with heart failure; I50.42 Chronic combined systolic (congestive) and diastolic (congestive) heart failure; F41.1 Generalized anxiety disorder; I35.0 Nonrheumatic aortic (valve) stenosis; I48.20 Chronic atrial fibrillation, unspecified; F32.9 Major depressive disorder, single episode, unspecified; K21.9 Gastro-esophageal reflux disease without esophagitis; J44.9 Chronic obstructive pulmonary disease, unspecified; Z79.899 Other long term (current) drug therapy; Z95.0 Presence of cardiac pacemaker; Z79.01 Long term (current) use of anticoagulants; Z88.8 Allergy status to other drugs, medicaments and biological substances; Z88.6 Allergy status to analgesic agent; Z88.2 Allergy status to sulfonamides; Z88.0 Allergy status to penicillin; Z88.5 Allergy status to narcotic agent; Z88.1 Allergy status to other antibiotic agents
CPT/HCPCS: 36415; 71045; 80048; 80053; 81001; 82330; 83735; 83880; 84484; 85025; 85610; 85730; 87086; 93005; 93010; 94640; 94760; 97116; 97161; 99285-25; A9270; J2060

== ENCOUNTER → 2019-06-05 | Outpatient (CLI) | payer MEDICARE, OTHER ==
[~2019-06-05] MED LIST changes: +ATEN25 PO; +DILT180 PO; +LOSA50 PO; +OMEPRAZOLE PO; +SPIR25
== END | disposition home or self-care (01) ==
LOC: LAB SHORT 15:30 → LAB EV 15:30
DX: R30.9 Painful micturition, unspecified (principal)
CPT/HCPCS: 87086

== ENCOUNTER 2019-06-08 10:25 | Emergency (ER) | payer MEDICARE, OTHER ==
[~2019-06-08] VITALS: Ht 162.6 cm; Wt 67.1 kg
[2019-06-08 11:03] LABS: BASOPHILS ABSOLUTE AUTO 0.05 K/mm3 (0.00-0.23); BASOPHILS PERCENT AUTO 1 % (0-2); EOSINOPHILS ABSOLUTE AUTO 0.19 K/mm3 (0.00-0.68); EOSINOPHILS PERCENT AUTO 3 % (0-6); Hematocrit 36.3 % (33.0-51.0); Hemoglobin 11.7 g/dL (11.5-16.0); IMMATURE GRAN ABSOLUTE AUTO 0.03 K/mm3 (0.00-0.10); IMMATURE GRAN PERCENT AUTO 0 % (0-1); LYMPHOCYTES ABSOLUTE AUTO 2.48 K/mm3 (0.84-5.20); LYMPHOCYTES PERCENT AUTO 32 % (21-46); MONOCYTES ABSOLUTE AUTO 0.74 K/mm3 (0.16-1.47); MONOCYTES PERCENT AUTO 10 % (4-13); Mean Corpuscular HGB 30.6 pg (26.0-34.0); Mean Corpuscular HGB Conc 32.2 g/dL (31.5-36.5); Mean Corpuscular Volume 95 fL (80-100); Mean Platelet Volume 9.8 fL (9.1-12.4); NEUTROPHILS ABSOLUTE AUTO 4.17 K/mm3 (1.96-9.15); NEUTROPHILS PERCENT AUTO 54 % (41-73); Platelet Count 196 K/mm3 (150-400); RDW Coefficient Variation 12.5 % (11.7-14.2); RDW Standard Deviation 43.8 fL (35.1-46.3); Red Blood Cell Count 3.82 M/mm3 (3.80-5.20); White Blood Cell Count 7.66 K/mm3 (4.00-11.30)
[2019-06-08 11:17] LABS: Troponin I 0.019 ng/mL (0.000-0.040)
[2019-06-08 11:18] LABS: Alanine Aminotransfer (ALT/SGP 32 U/L (12-78); Albumin, Blood 3.4 g/dL (3.4-5.0); Alk Phos 40 U/L (50-136); Anion Gap 7 mmol/L (6-16); Aspartate Aminotrans (AST/SGOT 33 U/L (12-37); Bilirubin, Total 0.4 mg/dL (0.1-1.0); Blood Urea Nitrogen 20 mg/dL (8-24); Bun/Creatinine Ratio 23.7 (12.0-20.0); CO2, Blood 25 mmol/L (21-32); Calcium, Blood 8.6 mg/dL (8.5-10.1); Chloride, Blood 110 mmol/L (98-108); Creatinine, Blood 0.84 mg/dL (0.40-1.00); Globulin, Blood 3.5 g/dL (2.2-4.0); Glomerular Filtration Rate >60 (60-); Glucose, Blood 126 mg/dL (70-99); Sodium, Blood 142 mmol/L (136-145); Total Protein, Blood 6.9 g/dL (6.4-8.2)
== END 2019-06-08 12:30 | disposition home or self-care (01) ==
LOC: ER 10:25
PROVIDERS: Emergency Medicine
DX: I11.0 Hypertensive heart disease with heart failure (principal); I50.42 Chronic combined systolic (congestive) and diastolic (congestive) heart failure; K21.9 Gastro-esophageal reflux disease without esophagitis; F32.9 Major depressive disorder, single episode, unspecified; F41.9 Anxiety disorder, unspecified; J44.9 Chronic obstructive pulmonary disease, unspecified; E78.5 Hyperlipidemia, unspecified; Z87.891 Personal history of nicotine dependence; Z88.8 Allergy status to other drugs, medicaments and biological substances; Z88.0 Allergy status to penicillin; Z88.5 Allergy status to narcotic agent; Z88.2 Allergy status to sulfonamides; Z88.1 Allergy status to other antibiotic agents; Z79.899 Other long term (current) drug therapy; Z79.01 Long term (current) use of anticoagulants
CPT/HCPCS: 71046; 80053; 84484; 85025; 93005; 93010; 96374; 99285-25

== ENCOUNTER 2019-07-23 14:19 | Emergency (ER) | payer OTHER ==
[~2019-07-23] VITALS: Ht 162.6 cm; Wt 66.7 kg
== END 2019-07-23 16:20 | disposition home or self-care (01) ==
LOC: ER 14:19
DX: M62.838 Other muscle spasm (principal); J44.9 Chronic obstructive pulmonary disease, unspecified; I10 Essential (primary) hypertension; F41.9 Anxiety disorder, unspecified; Z88.8 Allergy status to other drugs, medicaments and biological substances; Z88.0 Allergy status to penicillin; Z88.6 Allergy status to analgesic agent; Z88.1 Allergy status to other antibiotic agents; Z88.5 Allergy status to narcotic agent; Z79.899 Other long term (current) drug therapy; Z87.891 Personal history of nicotine dependence
CPT/HCPCS: 99283

== ENCOUNTER 2019-09-05 03:13 | Emergency (ER) | payer OTHER ==
[~2019-09-05] VITALS: Ht 162.6 cm; Wt 72.1 kg
[~2019-09-05 03:13] MED LIST changes: +OMEPRAZOLE MAGN20 M1 PO; -OMEPRAZOLE PO
[2019-09-05] MEDS ORDERED: MAGNESIUM OXID500 MG PO (03:40)
[2019-09-05] MEDS ORDERED: METO25ER PO (03:41)
[2019-09-05] MEDS ORDERED: PARO20 PO (03:42)
[2019-09-05 04:07] LABS: BASOPHILS ABSOLUTE AUTO 0.04 K/mm3 (0.00-0.23); BASOPHILS PERCENT AUTO 0 % (0-2); EOSINOPHILS ABSOLUTE AUTO 0.21 K/mm3 (0.00-0.68); EOSINOPHILS PERCENT AUTO 2 % (0-6); Hematocrit 35.5 % (33.0-51.0); Hemoglobin 11.2 g/dL (11.5-16.0); IMMATURE GRAN ABSOLUTE AUTO 0.06 K/mm3 (0.00-0.10); IMMATURE GRAN PERCENT AUTO 1 % (0-1); LYMPHOCYTES ABSOLUTE AUTO 2.22 K/mm3 (0.84-5.20); LYMPHOCYTES PERCENT AUTO 23 % (21-46); MONOCYTES ABSOLUTE AUTO 0.86 K/mm3 (0.16-1.47); MONOCYTES PERCENT AUTO 9 % (4-13); Mean Corpuscular HGB 29.6 pg (26.0-34.0); Mean Corpuscular HGB Conc 31.5 g/dL (31.5-36.5); Mean Corpuscular Volume 94 fL (80-100); Mean Platelet Volume 9.8 fL (9.1-12.4); NEUTROPHILS ABSOLUTE AUTO 6.11 K/mm3 (1.96-9.15); NEUTROPHILS PERCENT AUTO 64 % (41-73); Platelet Count 196 K/mm3 (150-400); RDW Coefficient Variation 15.2 % (11.7-14.2); RDW Standard Deviation 51.9 fL (35.1-46.3); Red Blood Cell Count 3.79 M/mm3 (3.80-5.20)
[2019-09-05 04:27] LABS: Alanine Aminotransfer (ALT/SGP 30 U/L (12-78); Albumin, Blood 3.4 g/dL (3.4-5.0); Alk Phos 39 U/L (50-136); Anion Gap 8 mmol/L (6-16); Aspartate Aminotrans (AST/SGOT 27 U/L (12-37); Bilirubin, Total 0.5 mg/dL (0.1-1.0); Blood Urea Nitrogen 22 mg/dL (8-24); Bun/Creatinine Ratio 22.9 (12.0-20.0); CO2, Blood 26 mmol/L (21-32); Calcium, Blood 7.7 mg/dL (8.5-10.1); Chloride, Blood 108 mmol/L (98-108); Creatinine, Blood 0.96 mg/dL (0.40-1.00); Globulin, Blood 3.4 g/dL (2.2-4.0); Glomerular Filtration Rate 59 (60-); Glucose, Blood 122 mg/dL (70-99); Potassium, Blood 4.2 mmol/L (3.5-5.5); Sodium, Blood 142 mmol/L (136-145); Total Protein, Blood 6.8 g/dL (6.4-8.2); Troponin I <0.015 ng/mL (0.000-0.040)
[2019-09-05 05:07] LABS: Influenza A Negative (NEGATIVE); Influenza B Negative (NEGATIVE)
== END 2019-09-05 05:55 | disposition home or self-care (01) ==
LOC: ER 03:13
PROVIDERS: Emergency Medicine
DX: I11.0 Hypertensive heart disease with heart failure (principal); I50.32 Chronic diastolic (congestive) heart failure; R06.00 Dyspnea, unspecified; I48.91 Unspecified atrial fibrillation; K21.9 Gastro-esophageal reflux disease without esophagitis; F32.9 Major depressive disorder, single episode, unspecified; F41.9 Anxiety disorder, unspecified; J44.9 Chronic obstructive pulmonary disease, unspecified; M81.0 Age-related osteoporosis without current pathological fracture; Z87.891 Personal history of nicotine dependence; Z88.0 Allergy status to penicillin; Z88.6 Allergy status to analgesic agent; Z88.1 Allergy status to other antibiotic agents; Z88.2 Allergy status to sulfonamides; Z88.5 Allergy status to narcotic agent; Z79.899 Other long term (current) drug therapy
CPT/HCPCS: 36415; 71046; 80053; 83735; 83880; 84145; 84484; 85025; 87804; 93005; 93010; 94640; 96374; 99285-25; J1940

== ENCOUNTER 2019-09-11 11:05 | Emergency (ER) | payer OTHER ==
[~2019-09-11] VITALS: Ht 160 cm; Wt 86.2 kg
[~2019-09-11 11:05] MED LIST changes: +MAGNESIUM OXID500 MG PO; +POTA10T PO; -POTASSIUM CHLO20 MEQ PO
[2019-09-11 11:45] LABS: BASOPHILS ABSOLUTE AUTO 0.02 K/mm3 (0.00-0.23); BASOPHILS PERCENT AUTO 0 % (0-2); EOSINOPHILS PERCENT AUTO 0 % (0-6); Hematocrit 34.4 % (33.0-51.0); Hemoglobin 10.9 g/dL (11.5-16.0); IMMATURE GRAN ABSOLUTE AUTO 0.13 K/mm3 (0.00-0.10); IMMATURE GRAN PERCENT AUTO 1 % (0-1); LYMPHOCYTES ABSOLUTE AUTO 1.91 K/mm3 (0.84-5.20); LYMPHOCYTES PERCENT AUTO 17 % (21-46); MONOCYTES ABSOLUTE AUTO 0.63 K/mm3 (0.16-1.47); MONOCYTES PERCENT AUTO 5 % (4-13); Mean Corpuscular HGB 29.8 pg (26.0-34.0); Mean Corpuscular HGB Conc 31.7 g/dL (31.5-36.5); Mean Corpuscular Volume 94 fL (80-100); NEUTROPHILS ABSOLUTE AUTO 8.91 K/mm3 (1.96-9.15); NEUTROPHILS PERCENT AUTO 77 % (41-73); Platelet Count 207 K/mm3 (150-400); RDW Coefficient Variation 15.5 % (11.7-14.2); RDW Standard Deviation 53.8 fL (35.1-46.3); Red Blood Cell Count 3.66 M/mm3 (3.80-5.20)
[2019-09-11 12:11] LABS: Alanine Aminotransfer (ALT/SGP 27 U/L (12-78); Albumin, Blood 3.5 g/dL (3.4-5.0); Alk Phos 38 U/L (50-136); Anion Gap 10 mmol/L (6-16); Aspartate Aminotrans (AST/SGOT 25 U/L (12-37); Bilirubin, Total 0.5 mg/dL (0.1-1.0); Blood Urea Nitrogen 24 mg/dL (8-24); Bun/Creatinine Ratio 25.6 (12.0-20.0); CO2, Blood 24 mmol/L (21-32); Calcium, Blood 8.5 mg/dL (8.5-10.1); Chloride, Blood 106 mmol/L (98-108); Creatinine, Blood 0.94 mg/dL (0.40-1.00); Globulin, Blood 3.6 g/dL (2.2-4.0); Glomerular Filtration Rate >60 (60-); Glucose, Blood 169 mg/dL (70-99); Potassium, Blood 3.5 mmol/L (3.5-5.5); Sodium, Blood 140 mmol/L (136-145); Total Protein, Blood 7.1 g/dL (6.4-8.2); Troponin I <0.015 ng/mL (0.000-0.040)
[2019-09-11] MEDS ORDERED: ALDACTONE25 MG PO (12:34)
[2019-09-11] MEDS ORDERED: Lasix20 MG PO (15:25)
== END 2019-09-11 16:14 | disposition home or self-care (01) ==
LOC: ER 11:05
PROVIDERS: Emergency Medicine
DX: I11.0 Hypertensive heart disease with heart failure (principal); I50.9 Heart failure, unspecified; J44.9 Chronic obstructive pulmonary disease, unspecified; F41.9 Anxiety disorder, unspecified; Z87.891 Personal history of nicotine dependence
CPT/HCPCS: 71046; 80053; 83880; 84484; 85025; 93005; 93010; 96374; 99285-25; J1940

== ENCOUNTER 2019-09-12 01:57 | Emergency (ER) | payer OTHER ==
[~2019-09-12] VITALS: Ht 162.6 cm; Wt 71.2 kg
[~2019-09-12 01:57] MED LIST changes: +ALDACTONE25 MG PO; +Lasix20 MG PO
[2019-09-12 02:28] LABS: BASOPHILS ABSOLUTE AUTO 0.02 K/mm3 (0.00-0.23); BASOPHILS PERCENT AUTO 0 % (0-2); EOSINOPHILS ABSOLUTE AUTO 0.01 K/mm3 (0.00-0.68); EOSINOPHILS PERCENT AUTO 0 % (0-6); Hematocrit 34.7 % (33.0-51.0); Hemoglobin 11.1 g/dL (11.5-16.0); IMMATURE GRAN PERCENT AUTO 1 % (0-1); LYMPHOCYTES ABSOLUTE AUTO 1.78 K/mm3 (0.84-5.20); LYMPHOCYTES PERCENT AUTO 14 % (21-46); MONOCYTES ABSOLUTE AUTO 0.62 K/mm3 (0.16-1.47); MONOCYTES PERCENT AUTO 5 % (4-13); Mean Corpuscular HGB 29.7 pg (26.0-34.0); Mean Corpuscular Volume 93 fL (80-100); Mean Platelet Volume 9.6 fL (9.1-12.4); NEUTROPHILS ABSOLUTE AUTO 9.83 K/mm3 (1.96-9.15); NEUTROPHILS PERCENT AUTO 80 % (41-73); Platelet Count 220 K/mm3 (150-400); RDW Coefficient Variation 15.6 % (11.7-14.2); RDW Standard Deviation 53.8 fL (35.1-46.3); Red Blood Cell Count 3.74 M/mm3 (3.80-5.20); White Blood Cell Count 12.36 K/mm3 (4.00-11.30)
[2019-09-12 02:49] LABS: Alanine Aminotransfer (ALT/SGP 24 U/L (12-78); Albumin, Blood 3.5 g/dL (3.4-5.0); Alk Phos 40 U/L (50-136); Anion Gap 8 mmol/L (6-16); Aspartate Aminotrans (AST/SGOT 20 U/L (12-37); Bilirubin, Total 0.5 mg/dL (0.1-1.0); Blood Urea Nitrogen 25 mg/dL (8-24); Bun/Creatinine Ratio 23.1 (12.0-20.0); CO2, Blood 27 mmol/L (21-32); Calcium, Blood 8.7 mg/dL (8.5-10.1); Chloride, Blood 104 mmol/L (98-108); Creatinine, Blood 1.08 mg/dL (0.40-1.00); Globulin, Blood 3.6 g/dL (2.2-4.0); Glomerular Filtration Rate 51 (60-); Glucose, Blood 133 mg/dL (70-99); Potassium, Blood 4.4 mmol/L (3.5-5.5); Sodium, Blood 139 mmol/L (136-145); Total Protein, Blood 7.1 g/dL (6.4-8.2); Troponin I <0.015 ng/mL (0.000-0.040)
== END 2019-09-12 05:43 | disposition home or self-care (01) ==
LOC: ER 01:57
PROVIDERS: Emergency Medicine
DX: R06.02 Shortness of breath (principal); D72.829 Elevated white blood cell count, unspecified; D64.9 Anemia, unspecified; N28.9 Disorder of kidney and ureter, unspecified; Z88.8 Allergy status to other drugs, medicaments and biological substances; Z88.0 Allergy status to penicillin; Z88.6 Allergy status to analgesic agent; Z88.5 Allergy status to narcotic agent; Z88.1 Allergy status to other antibiotic agents; Z88.2 Allergy status to sulfonamides; Z79.899 Other long term (current) drug therapy; I11.0 Hypertensive heart disease with heart failure; I50.32 Chronic diastolic (congestive) heart failure; K21.9 Gastro-esophageal reflux disease without esophagitis; J44.9 Chronic obstructive pulmonary disease, unspecified; E78.5 Hyperlipidemia, unspecified; Z87.891 Personal history of nicotine dependence
CPT/HCPCS: 36415; 71045; 80053; 83880; 84484; 85025; 93005; 93010; 94644; 99284-25

== ENCOUNTER → 2019-09-18 | Outpatient (CLI) | payer OTHER ==
[~2019-09-18] MED LIST changes: +METO50ER PO; +Roxicodone5 MG PO
== END ==
LOC: LAB SHORT 11:22 → PLD 11:22
DX: D48.5 Neoplasm of uncertain behavior of skin (principal)
CPT/HCPCS: 88305

== ENCOUNTER 2019-09-20 12:46 | Emergency (ER) | payer OTHER ==
[~2019-09-20] VITALS: Ht 160 cm; Wt 68.5 kg
[~2019-09-20 12:46] MED LIST changes: -METO50ER PO; -Roxicodone5 MG PO
[2019-09-20 13:51] LABS: Source, Urine Clean Catch
[2019-09-20 13:54] LABS: Bilirubin, Urine Neg (Neg); Blood, Urine Neg (Neg); Glucose Qualitative, Urine Neg (Neg); Ketones, Urine Neg (Neg); Leukocyte Esterase, Urine 2+ (Neg); Nitrite, Urine Neg (Neg); Protein, Urine Neg (Neg); Specific Gravity, Urine 1.005 (1.003-1.022); Urobilinogen, Urine NORM (Normal)
[2019-09-20 13:56] LABS: Appearance, Urine Clear (Clear); Color, Urine Yellow (P-Yellow)
[2019-09-20 14:00] LABS: Bacteria Few /hpf; Red Blood Cells, Urine 0-2 /hpf (0-2); Squamous Epithelial Cells Few /hpf (Few)
[2019-09-20 14:03] LABS: BASOPHILS ABSOLUTE AUTO 0.04 K/mm3 (0.00-0.23); BASOPHILS PERCENT AUTO 0 % (0-2); EOSINOPHILS ABSOLUTE AUTO 0.13 K/mm3 (0.00-0.68); EOSINOPHILS PERCENT AUTO 1 % (0-6); Hematocrit 37.8 % (33.0-51.0); IMMATURE GRAN ABSOLUTE AUTO 0.05 K/mm3 (0.00-0.10); IMMATURE GRAN PERCENT AUTO 1 % (0-1); LYMPHOCYTES ABSOLUTE AUTO 2.56 K/mm3 (0.84-5.20); LYMPHOCYTES PERCENT AUTO 25 % (21-46); MONOCYTES ABSOLUTE AUTO 1.23 K/mm3 (0.16-1.47); MONOCYTES PERCENT AUTO 12 % (4-13); Mean Corpuscular HGB 29.6 pg (26.0-34.0); Mean Corpuscular HGB Conc 31.7 g/dL (31.5-36.5); Mean Corpuscular Volume 93 fL (80-100); Mean Platelet Volume 9.7 fL (9.1-12.4); NEUTROPHILS ABSOLUTE AUTO 6.22 K/mm3 (1.96-9.15); NEUTROPHILS PERCENT AUTO 61 % (41-73); Platelet Count 225 K/mm3 (150-400); RDW Standard Deviation 51.9 fL (35.1-46.3); Red Blood Cell Count 4.06 M/mm3 (3.80-5.20); White Blood Cell Count 10.23 K/mm3 (4.00-11.30)
[2019-09-20 14:21] LABS: Albumin, Blood 3.7 g/dL (3.4-5.0); Albumin/Globulin Ratio 1.1 (0.8-1.8); Bilirubin, Total 0.4 mg/dL (0.1-1.0); Bun/Creatinine Ratio 23.4 (12.0-20.0); Calcium, Blood 8.6 mg/dL (8.5-10.1); Creatinine, Blood 1.07 mg/dL (0.40-1.00); Globulin, Blood 3.5 g/dL (2.2-4.0); Magnesium, Blood 1.8 mg/dL (1.6-2.4); Potassium, Blood 3.5 mmol/L (3.5-5.5); Total Protein, Blood 7.2 g/dL (6.4-8.2)
[2019-09-20] MEDS ORDERED: Roxicodone5 MG PO (15:47)
== END 2019-09-20 15:57 | disposition home or self-care (01) ==
LOC: ER 12:46
PROVIDERS: Physician Assistant
DX: R25.2 Cramp and spasm (principal); I48.91 Unspecified atrial fibrillation; K21.9 Gastro-esophageal reflux disease without esophagitis; F41.9 Anxiety disorder, unspecified; J44.9 Chronic obstructive pulmonary disease, unspecified; F32.9 Major depressive disorder, single episode, unspecified; I11.0 Hypertensive heart disease with heart failure; I50.9 Heart failure, unspecified
CPT/HCPCS: 36415; 80053; 81001; 83735; 85025; 87077; 87086; 87186; 93005; 93010; 99284-25

== ENCOUNTER 2019-09-23 22:38 | Inpatient (IN) | payer OTHER ==
[~2019-09-23] VITALS: Ht 162.6 cm; Wt 71.3 kg
[~2019-09-23 22:38] MED LIST changes: +Roxicodone5 MG PO
[2019-09-23 23:05] LABS: BASOPHILS ABSOLUTE AUTO 0.03 K/mm3 (0.00-0.23); BASOPHILS PERCENT AUTO 0 % (0-2); EOSINOPHILS ABSOLUTE AUTO 0.14 K/mm3 (0.00-0.68); EOSINOPHILS PERCENT AUTO 1 % (0-6); Hematocrit 33.2 % (33.0-51.0); Hemoglobin 10.4 g/dL (11.5-16.0); IMMATURE GRAN ABSOLUTE AUTO 0.05 K/mm3 (0.00-0.10); IMMATURE GRAN PERCENT AUTO 0 % (0-1); LYMPHOCYTES ABSOLUTE AUTO 2.05 K/mm3 (0.84-5.20); LYMPHOCYTES PERCENT AUTO 16 % (21-46); MONOCYTES ABSOLUTE AUTO 1.38 K/mm3 (0.16-1.47); MONOCYTES PERCENT AUTO 11 % (4-13); Mean Corpuscular HGB 29.5 pg (26.0-34.0); Mean Corpuscular HGB Conc 31.3 g/dL (31.5-36.5); Mean Corpuscular Volume 94 fL (80-100); Mean Platelet Volume 9.4 fL (9.1-12.4); NEUTROPHILS ABSOLUTE AUTO 9.27 K/mm3 (1.96-9.15); NEUTROPHILS PERCENT AUTO 72 % (41-73); Platelet Count 172 K/mm3 (150-400); RDW Coefficient Variation 15.4 % (11.7-14.2); RDW Standard Deviation 53.1 fL (35.1-46.3); Red Blood Cell Count 3.52 M/mm3 (3.80-5.20); White Blood Cell Count 12.92 K/mm3 (4.00-11.30)
[2019-09-23 23:25] LABS: Alanine Aminotransfer (ALT/SGP 28 U/L (12-78); Albumin, Blood 3.4 g/dL (3.4-5.0); Alk Phos 40 U/L (50-136); Anion Gap 7 mmol/L (6-16); Aspartate Aminotrans (AST/SGOT 25 U/L (12-37); Bilirubin, Total 0.5 mg/dL (0.1-1.0); Blood Urea Nitrogen 29 mg/dL (8-24); Bun/Creatinine Ratio 21.3 (12.0-20.0); CO2, Blood 26 mmol/L (21-32); Chloride, Blood 104 mmol/L (98-108); Creatinine, Blood 1.36 mg/dL (0.40-1.00); Globulin, Blood 3.4 g/dL (2.2-4.0); Glomerular Filtration Rate 39 (60-); Glucose, Blood 107 mg/dL (70-99); Potassium, Blood 4.5 mmol/L (3.5-5.5); Sodium, Blood 137 mmol/L (136-145); Total Protein, Blood 6.8 g/dL (6.4-8.2); Troponin I <0.015 ng/mL (0.000-0.040)
[2019-09-24 00:01] LABS: Source, Urine Clean Catch
[2019-09-24 00:10] LABS: Bilirubin, Urine Neg (Neg); Blood, Urine Neg (Neg); Glucose Qualitative, Urine Neg (Neg); Ketones, Urine Neg (Neg); Leukocyte Esterase, Urine 3+ (Neg); Nitrite, Urine Neg (Neg); Protein, Urine Neg (Neg); Urobilinogen, Urine NORM (Normal); pH, Urine 6.5 (5.0-8.0)
[2019-09-24 00:14] LABS: Appearance, Urine Clear (Clear); Color, Urine Yellow (P-Yellow)
[2019-09-24 00:15] LABS: Red Blood Cells, Urine 0-2 /hpf (0-2); Squamous Epithelial Cells Few /hpf (Few)
[2019-09-24 00:16] LABS: Bacteria Mod /hpf
[2019-09-24 03:59] LABS: Adenovirus Not Detected (NOT DETECT); Bordetella pertussis Not Detected (NOT DETECT); Chlamydophila pneumoniae Not Detected (NOT DETECT); Coronavirus 229E Not Detected (NOT DETECT); Coronavirus HKU1 Not Detected (NOT DETECT); Coronavirus NL63 Not Detected (NOT DETECT); Coronavirus OC43 Not Detected (NOT DETECT); Human Metapneumovirus Not Detected (NOT DETECT); Human Rhinovirus/Enterovirus Not Detected (NOT DETECT); Influenza A/2009-H1 Not Detected (NOT DETECT); Influenza A/H1 Not Detected (NOT DETECT); Influenza A/H3 Not Detected (NOT DETECT); Influenza B Not Detected (NOT DETECT); Mycoplasma pneumoniae Not Detected (NOT DETECT); Parainfluenza Virus 1 Not Detected (NOT DETECT); Parainfluenza Virus 2 Not Detected (NOT DETECT); Parainfluenza Virus 3 Not Detected (NOT DETECT); Parainfluenza Virus 4 Not Detected (NOT DETECT); Respiratory Syncytial Virus Not Detected (NOT DETECT)
[2019-09-24 06:06] LABS: BASOPHILS ABSOLUTE AUTO 0.03 K/mm3 (0.00-0.23); BASOPHILS PERCENT AUTO 0 % (0-2); EOSINOPHILS PERCENT AUTO 1 % (0-6); Hematocrit 31.4 % (33.0-51.0); Hemoglobin 9.9 g/dL (11.5-16.0); IMMATURE GRAN ABSOLUTE AUTO 0.04 K/mm3 (0.00-0.10); IMMATURE GRAN PERCENT AUTO 0 % (0-1); LYMPHOCYTES PERCENT AUTO 19 % (21-46); MONOCYTES ABSOLUTE AUTO 0.98 K/mm3 (0.16-1.47); MONOCYTES PERCENT AUTO 11 % (4-13); Mean Corpuscular HGB 29.8 pg (26.0-34.0); Mean Corpuscular HGB Conc 31.5 g/dL (31.5-36.5); Mean Corpuscular Volume 95 fL (80-100); Mean Platelet Volume 9.8 fL (9.1-12.4); NEUTROPHILS ABSOLUTE AUTO 6.34 K/mm3 (1.96-9.15); NEUTROPHILS PERCENT AUTO 68 % (41-73); Platelet Count 149 K/mm3 (150-400); RDW Coefficient Variation 15.2 % (11.7-14.2); RDW Standard Deviation 52.4 fL (35.1-46.3); Red Blood Cell Count 3.32 M/mm3 (3.80-5.20); White Blood Cell Count 9.29 K/mm3 (4.00-11.30)
[2019-09-24 06:22] LABS: Bun/Creatinine Ratio 21.7 (12.0-20.0); Calcium, Blood 7.9 mg/dL (8.5-10.1); Creatinine, Blood 1.06 mg/dL (0.40-1.00); Potassium, Blood 3.9 mmol/L (3.5-5.5)
--- NOTE | 2019-09-24 14:38 | NUR ---
PT ADMITTED. PT ADMITTED IN STABLE CONDITION. ORIENTED TO ROOM. CALL LIGHT IN REACH. WILL CONTINUE TO MONITOR.
--- NOTE | 2019-09-24 15:39 | NUR ---
PT REFUSING TO WEAR PURPLE DNR WRISTBAND. PT STATES SHE DOES NOT WHAT TO WEAR ANOTHER WRISTBAND AND UNDERSTANDS WHY WE WANT TO PLACE IT ON HER, BUT SHE WOULD PREFER NOT TO HAVE IT ON.
--- NOTE | 2019-09-24 17:10 | NUR ---
SHIFT SUMMARY NO CHANGES IN ASSESSMENT SINCE ADMISSION. PT RESTING COMFORTABLY IN ROOM. CALL LIGHT IN REACH. VSS. DENIES NEEDS AT THIS TIME. PT DIURESSING WELL. MOSTLY INCONT VOIDS. WILL CONTINUE TO MONITOR UNTIL TURNOVER IS COMPLETE.
--- NOTE | 2019-09-25 04:39 | NUR ---
SHIFT SUMMARY ASSUMED CARE OF PT AT 1900. PT IS A/O X4, DENIES N/T IN EXTREMITIES AT THIS TIME. HEART SOUNDS REGULAR, LUNG SOUNDS DIMINISHED, DENIES CP/SOB AT THIS TIME. PT WEARS 2L NC AT NIGHT IF SHE DOES WEAR HER CPAP, WHICH SHE WHERES AT HOME. PT IS INCONTINENT OF URINE SOMETIMES. PT C/O BEING BORED T/O THE NIGHT AND STROLLED THROUGH THE HALLWAYS A COUPLE TIMES. PT HAD A HARD TIME SLEEPING T/O THE NIGHT. CALL LIGHT IN REACH, BED IN LOWEST POSITION, WILL CONTINUE TO MONITOR UNTIL DAYSHIFT JONATAN ARRIVES.
[2019-09-25] MEDS ORDERED: METO50ER PO (16:00)
[2019-09-25] MEDS ORDERED: GABA100 PO (16:03)
[2019-09-25] MEDS ORDERED: ACET325 PO (16:03)
--- NOTE | 2019-09-25 17:48 | NUR ---
PT DISCHARGED. IV REMOVED. MEDICATIONS FAXED TO PHARMACY. PT DID NOT WANT TO WAIT FOR DISCHARGE INSTRUCTION, SHE WAS ENCOURAGED TO STAY BY SEVERAL STAFF MEMBERS TO WAIT FOR THE PROPER PAPERWORK. PT AMBULATED OUT OF THE UNIT.
== END 2019-09-25 16:09 | disposition left against medical advice (07) | DRG 291 ==
LOC: ER 22:38 → ERHOLD 22:39 → MEDS 09-24 13:41
PROVIDERS: Emergency Medicine; Nurse Practitioner Acute Care; ADMIT Internal Medicine
DX: I13.0 Hypertensive heart and chronic kidney disease with heart failure and stage 1 through stage 4 chronic kidney disease, or unspecified chronic kidney disease (principal); I50.43 Acute on chronic combined systolic (congestive) and diastolic (congestive) heart failure; J96.21 Acute and chronic respiratory failure with hypoxia; I48.20 Chronic atrial fibrillation, unspecified; N18.3 Chronic kidney disease, stage 3 (moderate); F39 Unspecified mood [affective] disorder; G62.9 Polyneuropathy, unspecified; G47.33 Obstructive sleep apnea (adult) (pediatric); I35.0 Nonrheumatic aortic (valve) stenosis; I42.0 Dilated cardiomyopathy; Z66 Do not resuscitate; K21.9 Gastro-esophageal reflux disease without esophagitis; J45.909 Unspecified asthma, uncomplicated; Z95.0 Presence of cardiac pacemaker; Z87.891 Personal history of nicotine dependence; E78.5 Hyperlipidemia, unspecified
CPT/HCPCS: 0099U; 36415; 71046; 80048; 80053; 81001; 83880; 84484; 85025; 87077; 87086; 87186; 93005; 93010; 94640; 94762; 96365; 96366; 96375; 99285-25; J1940; J1956; J7030; J7050

== ENCOUNTER 2019-10-01 16:37 | Inpatient (IN) | payer OTHER ==
[~2019-10-01] VITALS: Ht 162.6 cm; Wt 69.8 kg
[~2019-10-01 16:37] MED LIST changes: -ALDACTONE25 MG PO; -FURO20 PO; -MAGNESIUM OXID500 MG PO; -OMEPRAZOLE MAGN20 M1 PO; -POTA10T PO; -VALA500 PO
[2019-10-01 17:30] LABS: BASOPHILS ABSOLUTE AUTO 0.05 K/mm3 (0.00-0.23); BASOPHILS PERCENT AUTO 1 % (0-2); EOSINOPHILS ABSOLUTE AUTO 0.25 K/mm3 (0.00-0.68); EOSINOPHILS PERCENT AUTO 2 % (0-6); Hematocrit 31.9 % (33.0-51.0); Hemoglobin 9.9 g/dL (11.5-16.0); IMMATURE GRAN ABSOLUTE AUTO 0.08 K/mm3 (0.00-0.10); IMMATURE GRAN PERCENT AUTO 1 % (0-1); LYMPHOCYTES ABSOLUTE AUTO 3.09 K/mm3 (0.84-5.20); LYMPHOCYTES PERCENT AUTO 29 % (21-46); MONOCYTES ABSOLUTE AUTO 1.14 K/mm3 (0.16-1.47); MONOCYTES PERCENT AUTO 11 % (4-13); Mean Corpuscular HGB 30.1 pg (26.0-34.0); Mean Corpuscular Volume 97 fL (80-100); Mean Platelet Volume 10.1 fL (9.1-12.4); NEUTROPHILS ABSOLUTE AUTO 5.99 K/mm3 (1.96-9.15); NEUTROPHILS PERCENT AUTO 56 % (41-73); Platelet Count 208 K/mm3 (150-400); RDW Coefficient Variation 15.8 % (11.7-14.2); RDW Standard Deviation 55.7 fL (35.1-46.3); Red Blood Cell Count 3.29 M/mm3 (3.80-5.20)
[2019-10-01 17:47] LABS: Alanine Aminotransfer (ALT/SGP 35 U/L (12-78); Albumin, Blood 3.3 g/dL (3.4-5.0); Albumin/Globulin Ratio 0.9 (0.8-1.8); Alk Phos 35 U/L (50-136); Anion Gap 7 mmol/L (6-16); Aspartate Aminotrans (AST/SGOT 30 U/L (12-37); Bilirubin, Total 0.2 mg/dL (0.1-1.0); Blood Urea Nitrogen 50 mg/dL (8-24); Bun/Creatinine Ratio 26.2 (12.0-20.0); CO2, Blood 24 mmol/L (21-32); Chloride, Blood 107 mmol/L (98-108); Creatinine, Blood 1.91 mg/dL (0.40-1.00); Globulin, Blood 3.5 g/dL (2.2-4.0); Glomerular Filtration Rate 27 (60-); Glucose, Blood 133 mg/dL (70-99); Magnesium, Blood 2.4 mg/dL (1.6-2.4); Potassium, Blood 4.6 mmol/L (3.5-5.5); Sodium, Blood 138 mmol/L (136-145); Total Protein, Blood 6.8 g/dL (6.4-8.2); Troponin I <0.015 ng/mL (0.000-0.040)
[2019-10-01 17:47] LABS: Source, Urine Catheter
[2019-10-01 17:54] LABS: Bilirubin, Urine Neg (Neg); Blood, Urine Neg (Neg); Glucose Qualitative, Urine Neg (Neg); Ketones, Urine Neg (Neg); Leukocyte Esterase, Urine 1+ (Neg); Nitrite, Urine Neg (Neg); Protein, Urine Neg (Neg); Specific Gravity, Urine 1.015 (1.003-1.022); Urobilinogen, Urine NORM (Normal)
[2019-10-01 18:00] LABS: Appearance, Urine Clear (Clear); Color, Urine Yellow (P-Yellow)
[2019-10-01 18:17] LABS: Bacteria Few /hpf; Red Blood Cells, Urine 0-2 /hpf (0-2); Squamous Epithelial Cells Few /hpf (Few)
[2019-10-01] MEDS ORDERED: ELIQUIS5 MG PO (18:45)
[2019-10-01] MEDS ORDERED: VALA500 PO (18:46)
[2019-10-01] MEDS ORDERED: LISI20 PO (18:47)
[2019-10-01] MEDS ORDERED: FURO40 PO (18:47)
[2019-10-01] MEDS ORDERED: POTCHL20ER PO (18:50)
[2019-10-01] MEDS ORDERED: OMEPRAZOLE MAGN20 M1 PO (18:53)
[2019-10-01] MEDS ORDERED: MAGNESIUM250 MG PO (18:55)
[2019-10-01] MEDS ORDERED: Paxil40 MG PO (18:56)
[2019-10-01] MEDS ORDERED: METO50ER PO (18:57)
[2019-10-01] MEDS ORDERED: GABA100 PO (18:58)
[2019-10-01] MEDS ORDERED: ALDACTONE25 MG PO (18:58)
[2019-10-01] MEDS ORDERED: TRIA15CR3 TOP (19:01)
[2019-10-01] MEDS ORDERED: ALEN70 PO (19:04)
[2019-10-01] MEDS ORDERED: Fludrocortison0.1 MG PO (19:40)
--- NOTE | 2019-10-01 20:53 | NUR ---
PT ARRIVED ON UNIT AT APPROXIMATELY 2015 PT VERY DROWSY AND LETHARGIC. ALERT AND ORIENTED AND ANSWERING QUESTIONS APPROPRIATELY. BECOMES VERY IRRITABLE EASILY. LUNG SOUNDS NOTED TO HAVE EXPIRATORY WHEEZING NOTED T/O ALL LOBES WITH DIFFUSE RHONCHI. STOPPED IV FLUIDS THAT WERE INFUSING AND WILL CLARIFY WITH DR. ALTAMIRANO BEFORE RESTARTING. HEART TONES VERY DISTANT AND HARD TO HEAR. SBP'S LOW 70'S WITH MAP'S 50'S TO 60'S. DISTAL PULSES ARE VERY FAINT AND WEAK AND REQUIRED DOPPLER TO OBTAIN BOTH PEDAL AND TIBIAL PULSES. EXTREMITIES ARE COOL TO THE TOUCH. HANSEN CATHETER IS PATENT AND DRAINING CLEAR YELLOW URINE, MINIMAL URINE OUTPUT NOTED. SKIN APPEARS INTACT WITH SCATTERED BRUISING. SKIN IS VERY FRAGILE. CALL LIGHT WITHIN REACH AND PT IS ABLE TO MAKE HER BASIC NEEDS KNOWN.
--- NOTE | 2019-10-01 21:00 | NUR ---
DR. ALTAMIRANO CALLED DR. ALTAMIRANO REGARDING CONCERNS WITH LOW SBP'S WITH MAP'S IN THE 50'S. ALSO CONCERNED ABOUT IV FLUIDS INFUSING AT 75MLS/HR WITH EXPIRATORY WHEEZING AND PT BEING FLUID OVERLOADED. ORDERS TO KEEP FLUIDS INFUSING, WELL INCREASE HYDROCORTISONE DOSE TO 100MG LOADING, AND THEN 50MG IV Q8HRS. ORDERS TO CONSULT ELECTRONIC SYSTEM ENGINEER IN CASE CENTRAL LINE WAS NEEDED LATER FOR PRESSORS.
--- NOTE | 2019-10-01 21:14 | NUR ---
DR. MURRAY GAO CONSULTED PER DR. ALTAMIRANO. NEW ORDERS TO START NOREPINEPHRINE PERIPHERALLY LOW DOSE. ORDERS TO DISCONTINUE STEROIDS IV AND TO STOP FLUIDS. ONCE BP'S STABILIZE START LASIX 60MG IV Q8HRS. WANTS RETURN CALL IN ONE HOUR FOR AN UPDATE.
--- NOTE | 2019-10-01 22:34 | NUR ---
DR. GAO UPDATE UPDATE REGARDING STATUS SINCE LEVOPHED WAS STARTED. NEW ORDERS TO INCREASE LEVOPHED PERIPHERALLY TO 10MCG/MIN IN ORDER TO START LASIX AND DIURESE PT D/T FLUID OVERLOAD. WANTS A RETURN CALL FOR AN UPDATE IN AN HOUR.
--- NOTE | 2019-10-01 23:41 | NUR ---
DR. GAO UPDATE NOTIFIED THAT DR. GAO REGARDING PRESSURES CONTINUING TO BE ON THE SOFTER SIDE EVEN WITH LEVOPHED INFUSING AT 10MCG/MIN. INCREASED TO 15MCG/MIN PERIPHERALLY IN ORDER TO INCREASE BLOOD PRESSURES ENOUGH TO ADMINISTER LASIX.
--- NOTE | 2019-10-02 00:24 | NUR ---
DR. GAO AT BEDSIDE PLACING A CENTRAL LINE
[2019-10-02 03:27] LABS: BASOPHILS ABSOLUTE AUTO 0.03 K/mm3 (0.00-0.23); BASOPHILS PERCENT AUTO 0 % (0-2); EOSINOPHILS ABSOLUTE AUTO 0.03 K/mm3 (0.00-0.68); EOSINOPHILS PERCENT AUTO 0 % (0-6); Hematocrit 32.1 % (33.0-51.0); Hemoglobin 9.7 g/dL (11.5-16.0); IMMATURE GRAN ABSOLUTE AUTO 0.12 K/mm3 (0.00-0.10); IMMATURE GRAN PERCENT AUTO 1 % (0-1); LYMPHOCYTES ABSOLUTE AUTO 1.79 K/mm3 (0.84-5.20); LYMPHOCYTES PERCENT AUTO 13 % (21-46); MONOCYTES ABSOLUTE AUTO 1.28 K/mm3 (0.16-1.47); MONOCYTES PERCENT AUTO 10 % (4-13); Mean Corpuscular HGB 29.8 pg (26.0-34.0); Mean Corpuscular HGB Conc 30.2 g/dL (31.5-36.5); Mean Corpuscular Volume 99 fL (80-100); Mean Platelet Volume 9.9 fL (9.1-12.4); NEUTROPHILS ABSOLUTE AUTO 10.23 K/mm3 (1.96-9.15); NEUTROPHILS PERCENT AUTO 76 % (41-73); Platelet Count 216 K/mm3 (150-400); RDW Coefficient Variation 15.9 % (11.7-14.2); RDW Standard Deviation 57.3 fL (35.1-46.3); Red Blood Cell Count 3.25 M/mm3 (3.80-5.20); White Blood Cell Count 13.48 K/mm3 (4.00-11.30)
[2019-10-02 03:44] LABS: Albumin, Blood 3.1 g/dL (3.4-5.0); Bilirubin, Total 0.3 mg/dL (0.1-1.0); Bun/Creatinine Ratio 23.3 (12.0-20.0); Calcium, Blood 8.4 mg/dL (8.5-10.1); Creatinine, Blood 2.45 mg/dL (0.40-1.00); Globulin, Blood 3.2 g/dL (2.2-4.0); Potassium, Blood 4.9 mmol/L (3.5-5.5); Total Protein, Blood 6.3 g/dL (6.4-8.2)
--- NOTE | 2019-10-02 05:52 | NUR ---
END OF SHIFT SUMMARY SINCE CENTRAL LINE PLACEMENT PT ONLY REQUIRED LEVOPHED FOR A SHORT TIME AFTER. PRESSURES RESPONDED QUICKLY WITH SBP'S IN THE 130'S. ADMINISTERED LASIX 80MG WITH A TOTAL OF 300CC URINE OUTPUT. LEVOPHED TURNED OFF AT 0300 WITH SYSTOLIC PRESSURES MAINTAINING 100'S-120'S. LUNG SOUNDS REMAIN CLEAR TO BILATERAL UPPER LOBES WITH CRACKLES TO BILATERAL LOWER LOBES. NO WHEEZING. PT APPEARS MORE COMFORTABLE RESPIRATORY ESPARZA. SHE EXPERIENCED ONE EPISODE OF BILE EMESIS MEASURING 100CC TOTAL. PT IS CURRENTLY NOTED TO BE IN AFIB; HOWEVER, DOES HAVE A DUAL CHAMBER PACEMAKER THAT WAS PACING VENTRICULARLY EARLIER IN SHIFT. CENTRAL LINE REMAINS PATENT TO LEFT GROIN; PRESSURE BAG WITH SAFE SET CONNECTED. NEURO ESPARZA PT HAS BEEN ALERT AND ORIENTED AND ABLE TO MAKE NEEDS KNOWN; HOWEVER, IS NONSENSICAL AT TIMES. APPEARS TO HAVE SOME MEMORY LOSS. MOOD APPEARED LABILE AT TIMES WHERE PT WOULD BE APPRECIATIVE AND THEN IRRITABLE WITH CARES. REDIRECTION NEEDED AT TIMES. WILL CONTINUE TO MONITOR UNTIL REPORT CAN BE HANDED OFF TO ONCOMING RN.
--- NOTE | 2019-10-02 10:15 | NUR ---
ASSUMED CARE RECIEVED REPORT FROM LATASHA MCCORMACK. PT IS SLEEPING IN BED. SHE IS ON 3L NC, SATING LOW 90'S. SHE HAS A DNR BRACELET ON HER RIGHT WRIST. BED LOW AND LOCKED.
--- NOTE | 2019-10-02 11:07 | NUR ---
ECHOCARDIOGRAM COMPLETED
--- NOTE | 2019-10-02 18:32 | NUR ---
SHIFT SUMMARY PT IS CURRENTLY LYING IN BED WITH THE CPAP ON (8-20 AUTO PRESSURES, WITH 13LPM BLEED IN). HER SATS ARE 93%. SHE RECENTLY RECEIVED ALPRAZOLAM AFTER HAVING ACUTE RESPIRATORY DISTRESS, WITH HIGH ANXIETY AND CONFUSION. SHE WAS DOING FINE ALL DAY ON 3L NC. SHE WORKED REALLY WELL WITH PT AND OT. THE CONFUSION ISN'T EXACTLY NEW - SHE IS ORIENTED TO SELF, SITUATION, SURROUNDINGS, AND YEAR (CONFUSED ABOUT HOW LONG SHES BEEN HERE THINKING ITS BEEN LONGER THAN IT REALLY HAS BEEN). BUT SHE MAKES CONFUSING STATEMENTS OCCASSIONALLY AND IS VERY ENCARNACION, AND IMPATIENT WITH STAFF. AFTER PT AND OT WORKED WITH HER SHE GOT BACK TO BED (WAS ORIGINALLY IN THE CHAIR FOR OVER AN HOUR). HER SATS WERE HANGING IN THE MID-HIGH 80'S, WITH SLIGHT WHEEZES IN THE MIDDLE, UPPER LOBES, AND FINE CRACKLES IN THE LOWER LOBES. SHE WAS TURNED UP TO 5L WHILE SHE WAS RESTING/RECOVERING. A LITTLE BIT LATER SHE STARTED CALLING OUT OF HER ROOM WITH AGITATION, SHE WAS DIAPHORETIC, WITH AUDIBLE WHEEZES, AND HAD INCREASED WORK OF BREATHING. SATS WERE IN THE MID TO HIGH 80'S. MURRAY WAS CALLED, AND SHE GOT A ONE TIME DOSE OF LASIX (80MG) AND WE GAVE HER ALPRAZOLAM FOR ACUTE ANXIETY, ALONG WITH BEING PLACED ON THE CPAP. SISTER HAS BEEN UPDATED. BLOOD PRESSURES ARE ADEQUATE WITH LASIX, ALPRAZOLAM, AND CPAP DESPITE HYPOTENSION LAST NIGHT. URINE OUTPUT: 700ML. BED IS LOW AND LOCKED. CALL LIGHT WITHIN REACH.
--- NOTE | 2019-10-02 20:00 | NUR ---
ASSUMED PT CARE FROM LATASHA BROOKS PT SLEEPING IN BED WITH CPAP MASK IN PLACE; 13L BLEED IN. BIOX READING LOW TO MID 90'S. VSS; SEE FLOWSHEET. CENTRAL LINE TO LEFT GROIN HAS PRESSURE BAG CONNECTED WITH SAFE SET, BUT NO FLUIDS ARE CURRENTLY INFUSING. BEDSIDE REPORT GIVEN. CALL LIGHT WITHIN REACH.
--- NOTE | 2019-10-02 21:44 | NUR ---
UPDATE PT ASKED ME "HOW CLOSE SHE WAS TO ." EXTENSIVE CONVERSATION REGARDING THE CONCERN OF HER MEMORY LOSS AND FORGETFULNESS RELATED TO FREQUENT VISITS TO THE ER AND HOSPITAL ADMISSIONS. PT STATES SHE LIVES AT [facility]DEP[facility] WITH NO CAREGIVER ASSIST. STATES SHE MANAGES HER OWN MEDICATIONS AND PREPARES THEM IN WEEKLY PILL CONTAINERS. STATES SHE HAS THE HELP OF A FRIEND NAMED JORDAN THAT HELPS HER OCCASIONALLY WITH TRANSPORTATION AND LAUNDRY. PT ADMITS TO HER BEING FORGETFUL, BUT APPEARS TO BE IN DENIAL OF NEEDING ASSISTANCE WITH MANAGING MEDICATIONS. STRESSED THE IMPORTANCE OF HER HEART FAILURE AND THE NEED TO BE COMPLIANT WITH HER MEDICATIONS. PT STATES SHE IS VERY COMPLIANT WITH HER MEDS; HOWEVER, READDRESSED HER FREQUENT HOSPITAL VISITS AND ADMISSIONS. PT APPEARS WILLING TO RECEIVE HELP TO FIND CAREGIVER ASSIST FOR MED MANAGEMENT, BUT WILL NEED FREQUENT ENCOURAGEMENT AND REMINDERS OF SAFETY R/T MEMORY LOSS. MAY NEED PLACEMENT IN AN ASSISTED LIVING PT STATES SHE CAN'T AFFORD TO HIRE A CAREGIVER. WHEN ASKED IF HER FRIEND JORDAN, WOULD BE WILLING TO HELP WITH MEDICATIONS SHE STATED SHE DIDN'T KNOW BECAUSE SHE HAS NEVER ASKED HIM. MATHEW SHETH, IS A CRITICAL CARE NURSE IN [place] AND DOESN'T APPEAR TO UNDERSTAND THE EXTENT OF PT'S MEMORY LOSS. MAY NEED TO INVOLVE DAUGHTER WITH FUTURE DISCUSSIONS AND DECISIONS REGARDING POSSIBLE PLACEMENT AND/OR CAREGIVER ASSIST FOR MEDICATION MANAGEMENT.
[2019-10-02] MEDS ORDERED: DILT180 PO (23:36)
[2019-10-03 03:52] LABS: BASOPHILS ABSOLUTE AUTO 0.02 K/mm3 (0.00-0.23); BASOPHILS PERCENT AUTO 0 % (0-2); EOSINOPHILS PERCENT AUTO 1 % (0-6); Hematocrit 28.1 % (33.0-51.0); Hemoglobin 8.6 g/dL (11.5-16.0); IMMATURE GRAN ABSOLUTE AUTO 0.05 K/mm3 (0.00-0.10); IMMATURE GRAN PERCENT AUTO 1 % (0-1); LYMPHOCYTES ABSOLUTE AUTO 1.64 K/mm3 (0.84-5.20); LYMPHOCYTES PERCENT AUTO 19 % (21-46); MONOCYTES ABSOLUTE AUTO 0.82 K/mm3 (0.16-1.47); MONOCYTES PERCENT AUTO 9 % (4-13); Mean Corpuscular HGB 29.8 pg (26.0-34.0); Mean Corpuscular HGB Conc 30.6 g/dL (31.5-36.5); Mean Corpuscular Volume 97 fL (80-100); Mean Platelet Volume 9.5 fL (9.1-12.4); NEUTROPHILS ABSOLUTE AUTO 6.18 K/mm3 (1.96-9.15); NEUTROPHILS PERCENT AUTO 70 % (41-73); Platelet Count 152 K/mm3 (150-400); RDW Coefficient Variation 15.8 % (11.7-14.2); RDW Standard Deviation 55.6 fL (35.1-46.3); Red Blood Cell Count 2.89 M/mm3 (3.80-5.20); White Blood Cell Count 8.81 K/mm3 (4.00-11.30)
[2019-10-03 04:15] LABS: Albumin, Blood 2.9 g/dL (3.4-5.0); Bilirubin, Total 0.5 mg/dL (0.1-1.0); Bun/Creatinine Ratio 27.6 (12.0-20.0); Calcium, Blood 7.8 mg/dL (8.5-10.1); Creatinine, Blood 2.17 mg/dL (0.40-1.00); Magnesium, Blood 2.1 mg/dL (1.6-2.4); Potassium, Blood 3.9 mmol/L (3.5-5.5); Total Protein, Blood 5.9 g/dL (6.4-8.2)
--- NOTE | 2019-10-03 05:40 | NUR ---
END OF SHIFT SUMMARY PT HAS SLEPT THROUGH THE NIGHT. NEEDED AN INCREASE IN CPAP PRESSURES FROM 8 TO 12-20 CMH20 WITH AN 8L BLEED IN; BIOX INCREASED FROM LOW 90'S TO MID 90'S. CURRENTLY ON 3L VIA NC D/T PT REQUESTING A BREAK FOR SIPS OF WATER. REMAINS VERY CONFUSED/FORGETFUL. CONTINUES TO ASK REPETITIVE QUESTIONS WITH OCCASIONAL NONSENSICAL SPEECH. LUNG SOUNDS REMAIN WITH CRACKLES TO BASES WITH DIFFUSE WHEEZES NOTED T/O ALL LOBES. PT WAS IN NSR WITH PAC'S UPON START OF SHIFT AND IS CURRENTLY IN AFIB WITH HR 90-100'S. HANSEN CATHETER PATENT AND DRAINING TO GRAVITY; CLEAR, YELLOW URINE WITH AN ODOR NOTED; 1200CC. CALL LIGHT WITHIN REACH. PT ABLE TO MAKE BASIC NEEDS KNOWN. WILL CONTINUE TO MONITOR UNTIL REPORT IS HANDED OFF TO ONCOMING RN.
--- NOTE | 2019-10-03 07:19 | NUR ---
ASSUMED CARE NOTE REPORT RECEIVED FROM LATASHA MCCORMACK. BEDSIDE ROUNDING DONE. PT RESTING IN BED, HOB ELEVATED 30 DEGREES. PT WITH EYES OPEN, RESPONDING TO QUESTIONS AND COMMANDS. RT AT BEDSIDE SETTING PT UP WITH BREATHING TX. LEFT GROIN CENTRAL LINE ASSESSED, NO SIGNS OF BLEEDING OR BRUISING. SPO2 96% ON 3LPM VIA NC. RHYTHM SHOWING AFIB WITH HR IN 100-110S. PT DENIES ANY PAIN OR DISCOMFORT AT THIS TIME. HANSEN CATHETER PATENT, DRAINING TO GRAVITY. BED IN LOWEST POSITION, UPPER SIDE RAILS RAISED. CALL LIGHT IN REACH. WILL CONT TO MONITOR PT.
--- NOTE | 2019-10-03 09:13 | NUR ---
DR HERNDON ROUNDS DR HERNDON ROUNDED, UPDATED ON PT STATUS OVERNIGHT. NO CHANGES TO PLAN OF CARE AT THIS TIME. WILL CONT TO MONITOR PT.
--- NOTE | 2019-10-03 09:51 | NUR ---
DR GIRALDO ROUNDS DR GIRALDO ROUNDED, UPDATED ON PT STATUS. PER DR ENZO YOUNG TO D/C CENTRAL LINE TO LEFT GROIN ONCE PIV ACCESS OBTAINED. POSSIBLE CHANGE TO PCU STATUS. AWAITING ORDERS. NO FURTHER CHANGES TO PLAN OF CARE. WILL CONT TO MONITOR PT.
--- NOTE | 2019-10-03 17:33 | NUR ---
SHIFT SUMMARY NO ACUTE CHANGES THIS SHIFT. PT RESTING IN BED, REPOSITIONING SELF FOR COMFORT. CENTRAL LINE TO LEFT GROIN REMOVED WITHOUT EVENT AFTER PIV ACCESS OBTAINED. PT WITH 2 PIVs AT THIS TIME, BOTH SALINE LOCKED. PT REMAINS ALERT AND ORIENTED TO SELF, SURROUNDINGS, PERSON, DATE/TIME. HOWEVER, PT EXPERIENCES INTERMITTENT CONFUSION. DAUGHTER REPORTS THAT PT DOES NOT HAVE ANY BASELINE DEMENTIA AND HAS NOT BEEN EVALUATED FOR SUCH. PT CONTINUES TO DENY ANY PAIN OR DISCOMFORT. VSS, SEE FLOWSHEET. RHYTHM REMAINS AFIB WITH RATE IN 110-120S. PT WITH PACEMAKER. BP STABLE. SPO2 95-96% ON 3LPM VIA NC. PT DENIES ANY SOB/DYSPNEA AT REST. PHYSICAL THERAPY AND OCCUPATIONAL THERAPY WORKED WITH PT TODAY. BED IN LOWEST POSITION, UPPER SIDE RAILS RAISED. CALL LIGHT IN REACH. WILL CONT TO MONITOR PT THROUGH TO END OF SHIFT.
--- NOTE | 2019-10-03 19:20 | NUR ---
ASSUMED CARE OF PT, BEDSIDE REPORT RECEIVED. PT IS RESTING QUIETLY RECLINING IN BED, DENIES N/V, DENIES CP/PRESSURE, DENIES INCREASING SOB/DYSPNEA, FULLY ORIENTED AT THIS TIME HOWEVER ALSO STATES THAT HER DAUGHTER SHOWED HER WHERE TO LOOK IN ORDER TO BE ABLE TO STATE CORRECT DATE. SHE IS ABLE TO STATE THAT SHE IS IN [facility] IN [facility] AT THIS TIME IN THE ICU. SATS ARE MAINTAINING WITH OXYGEN AT 2 L/MIN VIA NC, NO VISIBLE INCREASED WORK OF BREATHING AT REST, MODERATE INCREASE IN WORK OF BREATHING WITH REPOSITIONING SELF IN BED HOWEVER RETURNS TO BASELINE WITHIN 30 SECONDS OF RETURNING TO REST, LUNGS ARE DIM BILAT MID TO BASES OTHERWISE CLEAR THROUGHOUT AT THIS TIME. HR IRREG, AFIB NOTED ON MONITOR, RATE AT REST 110-120S, RATE NOTED TO INCREASE TO 130S WITH INCREASE IN ACTIVITY, WILL MONITOR, PRESSURES ARE MAINTAINING, PULSES FULL BILAT RADIAL, FAINT BILAT PEDAL AND POSTERIOR TIBEAL, NO EDEMA IS NOTED AT THIS TIME, SKIN IS PWD. ABD MILDLY DISTENDED, PT STATES NORMAL FOR HER, ACTIVE BOWEL TONES X 4, NO GUARDING WITH PALPATION, NO TENDERNESS REPORTED. HANSEN CATH IN PLACE, PATENT AND DRAINING CLEAR YELLOW URINE AT THIS TIME, CATH CARE PROVIDED. DRESSING TO LEFT GROIN CDI, SITE REMAINS STABLE AT THIS TIME, NO EVIDENCE OF BLEEDING OR BRUISING.
--- NOTE | 2019-10-04 06:32 | NUR ---
PT RESTS QUIETLY THROUGHOUT SHIFT, STATES THAT SHE HAS NOT BEEN SLEEPING WELL, XANAX WAS ADMINISTERED AND PT DID APPEAR TO HAVE A PERIOD OF SLEEP LASTING APPROXIMATELY 2 HOURS AFTER ONSET OF MED. AFIB CONTINUES THROUGHOUT SHIFT, RATE DID BEGIN TO REACH 140-150S WITH INCREASES IN ACTIVITY, DISCUSSED WITH DR ALDRIDGE CHOCOLATE MOLDER FOR [employer] REGARDING HOME MEDICATIONS AND RECENT LEVOPHED, CARDIZEM CD AND TOPROL XL HOME DOSES ORDERED, PRESSURES HAVE MAINTAINED STABLE THROUGHOUT SHIFT. SHE REMAINS ORIENTED THROUGHOUT SHIFT AND USES CALL LIGHT APPROPRIATELY TO MAKE NEEDS KNOWN. HANSEN REMAINS IN PLACE, URINE OUTPUT OF 1700 ML THIS SHIFT.
[2019-10-04 09:01] LABS: BASOPHILS ABSOLUTE AUTO 0.02 K/mm3 (0.00-0.23); BASOPHILS PERCENT AUTO 0 % (0-2); EOSINOPHILS ABSOLUTE AUTO 0.11 K/mm3 (0.00-0.68); EOSINOPHILS PERCENT AUTO 2 % (0-6); Hematocrit 30.6 % (33.0-51.0); Hemoglobin 9.1 g/dL (11.5-16.0); IMMATURE GRAN ABSOLUTE AUTO 0.05 K/mm3 (0.00-0.10); IMMATURE GRAN PERCENT AUTO 1 % (0-1); LYMPHOCYTES PERCENT AUTO 21 % (21-46); MONOCYTES ABSOLUTE AUTO 0.63 K/mm3 (0.16-1.47); MONOCYTES PERCENT AUTO 9 % (4-13); Mean Corpuscular HGB 29.1 pg (26.0-34.0); Mean Corpuscular HGB Conc 29.7 g/dL (31.5-36.5); Mean Corpuscular Volume 98 fL (80-100); Mean Platelet Volume 10.1 fL (9.1-12.4); NEUTROPHILS ABSOLUTE AUTO 4.81 K/mm3 (1.96-9.15); NEUTROPHILS PERCENT AUTO 68 % (41-73); NRBC ABSOLUTE 0.03 K/mm3 (0.00-0.02); NRBC Auto 0.4 /100 WBC (0.0-0.2); Platelet Count 162 K/mm3 (150-400); RDW Coefficient Variation 15.6 % (11.7-14.2); RDW Standard Deviation 54.9 fL (35.1-46.3); Red Blood Cell Count 3.13 M/mm3 (3.80-5.20); White Blood Cell Count 7.12 K/mm3 (4.00-11.30)
--- NOTE | 2019-10-04 09:40 | NUR ---
DR. HERNDON AT BEDSIDE FOR ASSESSMENT. MAY ORDER ADDITIONAL METOPROLOL LATER TODAY DEPENDING ON HR. PROVIDER STATED OK TO GET OOB TO CHAIR.
[2019-10-04 10:39] LABS: Albumin, Blood 2.9 g/dL (3.4-5.0); Anion Gap 4 mmol/L (6-16); Blood Urea Nitrogen 45 mg/dL (8-24); Bun/Creatinine Ratio 37.8 (12.0-20.0); CO2, Blood 30 mmol/L (21-32); Calcium, Blood 8.1 mg/dL (8.5-10.1); Chloride, Blood 106 mmol/L (98-108); Creatinine, Blood 1.19 mg/dL (0.40-1.00); Glomerular Filtration Rate 46 (60-); Glucose, Blood 163 mg/dL (70-99); Phosphorus, Blood 2.5 mg/dL (2.5-4.9); Potassium, Blood 3.6 mmol/L (3.5-5.5); Sodium, Blood 140 mmol/L (136-145)
[2019-10-04 10:44] LABS: Troponin I 0.028 ng/mL (0.000-0.040)
--- NOTE | 2019-10-04 11:52 | NUR ---
SPOKE TO PATIENT'S DAUGHTER MATHEW BY PHONE, GAVE UPDATE ON PT'S CONDITION AND PLAN GOING FORWARD.
--- NOTE | 2019-10-04 18:32 | NUR ---
SHIFT SUMMARY: A&O X 3, PLEASANT, SLIGHTLY ANXIOUS. AFIB WITH RATE 98-120; DR. HERNDON STARTED METOPROLOL U1DSIZE TO DECRESE HR. BREATH SOUNDS WITH CRACKLES IN BILATERAL BASES. GOOD URINE OUTPUT FROM HANSEN. NO BM TODAY; STATED SHE HAD A LARGE ONE IN URGENT CARE JUST PRIOR TO ADMISSION. APPETITE OK. DENIED PAIN. ON 1 L/MIN NC, CPAP AT HS. IS CONCERNED THAT SHE WILL NOT BE ABLE TO RETURN TO HER LIVING SITUATION (AT [facility]) AT D/C D/T WEAKNESS. WORKED WITH PT TODAY, GOT IN TO CHAIR AND WAS ABLE TO SIT UP FOR ~ 6 MINUTES. IS PCU STATUS.
--- NOTE | 2019-10-04 22:12 | NUR ---
ASSUMPTION OF CARE PT AWAKE IN BED, ORIENTED TO SELF, PLACE, EVENT AND FOLLOWING DIRECTIONS, PLEASANT AND COOPERATIVE. PT ON 1L PER NC TO MAINTAIN O2 SATURATIONS>90%, MONITOR SHOWS AFIB WITH HR 90'S-120, BP STABLE. PT AFEBRILE. PT TOLERATING PO INTAKE, SWALLOWING PILLS WHOLE. HANSEN IN PLACE DRAINING YELLOW URINE. PT DENIES ANY PAIN OR SOB AT THIS TIME. CALL LIGHT WITHIN REACH.
[2019-10-05 04:09] LABS: Bun/Creatinine Ratio 37.6 (12.0-20.0); Calcium, Blood 7.9 mg/dL (8.5-10.1); Creatinine, Blood 1.01 mg/dL (0.40-1.00); Potassium, Blood 3.3 mmol/L (3.5-5.5)
--- NOTE | 2019-10-05 06:03 | NUR ---
SHIFT SUMMARY NO ACUTE CHANGES THIS SHIFT. PT TOLERATED CPAP FOR APPROX 1 HOUR THIS SHIFT, DID NOT SLEEP WELL. PT REMAINS ORIENTED, USES CALL LIGHT APPROPRIATELY. PT ON 1L PER NC TO MAINTAIN O2 SATURATIONS>90%. MONITOR SHOWS AFIB WITH HR 100-120'S, BP STABLE. PT HAMM AND REPOSITIONS SELF IN BED, REQUIRES OCCASSIONALLY ASSISTANCE WITH BOOST IN BED. HANSEN IN PLACE DRAINING YELLOW URINE. CALL LIGHT WIHTIN REACH.
--- NOTE | 2019-10-05 16:35 | NUR ---
REPORT RECIEVED FROM ICU NURSE LATASHA RODGERS. AWAITING ARRIVAL TO ROOM AT THIS TIME.
--- NOTE | 2019-10-05 16:54 | NUR ---
PT HAD MED BM. ORDER TO D/C HNASEN. EDUCATED PATIENT ABOUT PROCEDURE FOR REMOVAL AND THE NEED TO VOID WITHIN 6 HOURS; VERBALIZED UNDERSTANDING. REMOVED 10 ML STERILE WATER AND REMOVED CATHETER. PT TOLERATED WELL.
--- NOTE | 2019-10-05 17:38 | NUR ---
SPOKE TO PT'S DAUGHTER MATHEW, GAVE UPDATE, NOTIFIED OF TRANSFER TO MEDICAL FLOOR. MATHEW FEELS THAT GABAPENTIN MAY BE CONTRIBUTING TO PTS WEAKNESS AND DAYTIME SOMNOLENCE, WOULD LIKE IT TO BE STOPPED IF POSSIBLE. SHE WOULD ALSO LIKE TO BE NOTIFIED OF ANY D/C PLANS SHE IS CONCERNED ABOUT PT BEING DISCHARGED TOO SOON.
--- NOTE | 2019-10-05 17:45 | NUR ---
PATIENT ARRIVED TO ROOM 305, ABLE TO TRANSFER FROM TO BED WITH SBA. 3LO2 TO MAINTAIN SATS. PATIENT ORIENTED TO ROOM AND USE OF CALL LIGHT.20IV WNL AND SL. PATIENT DENIES ANY PAIN OR DISCOMFORT. L GROIN PUNCTURE SITE WML, REDNESS TO COCCYX. TOLERATING CARDIAC DIET. PATIENT HAD LARGE BM THIS AFTERNOON. PATIENT INCONTIENT OF URINE, WEARING ATTENDS. PATIENT DENIES ANY NEEDS AT THIS TIME. INSTRUCTED TO CALL FOR ASSISTANCE.
--- NOTE | 2019-10-05 17:51 | NUR ---
PT TRANSFERRED TO MEDICAL FLOOR VIA W/C AT 1730, HAS ALL BELONGINGS.
[2019-10-06 05:33] LABS: Bun/Creatinine Ratio 29.4 (12.0-20.0); Creatinine, Blood 1.43 mg/dL (0.40-1.00); Potassium, Blood 4.4 mmol/L (3.5-5.5)
--- NOTE | 2019-10-06 08:12 | NUR ---
SHIFT SUMMARY: VARINDER WAS A IRRITABUL THIS SHIFT, PT DEMANDING CONSTANT ATTENTION. WHEN LEFT TO HER OWN DEVICES SHE CALLED 911 BECAUSE SHE WAS WET. PATIENT WAS TOLE THAT IF SHE CONTINUE TO PHONE POLICE INAPPROPRIATELY THAT THE PHONE WOULD HAVE TO BE REMOVED. SHE CALLED HER DAUGHTER AND HAD HER DAUGHTER TALK TO THE NURSE. DAUGHTER TOLD HER SHE WAS SAFE AND OK AND SHE NEEDS TO GO TO SLEEP. AID AND NURSE WERE IN THE ROOM FREQUENTLY ATTNDING SMALL DETAILS TO COMFORT THE PATIENT IN SOME WAY, BUT NOTHING SATISFIIED HER. AT MIGNIGHT SHE RECIVE TYLENOL AND XANAX PER EMAR AND FINALLY WENT TO SLEEP. REPORT PASSED TO DAY NURSE.
--- NOTE | 2019-10-06 20:03 | NUR ---
sleepy, call light in reach, bed in low position, 3L via nc, called other dpt to ask to get repositioned in bed, bsr shared with noc staff and pt
[2019-10-07 04:57] LABS: BASOPHILS ABSOLUTE AUTO 0.03 K/mm3 (0.00-0.23); BASOPHILS PERCENT AUTO 0 % (0-2); EOSINOPHILS ABSOLUTE AUTO 0.08 K/mm3 (0.00-0.68); EOSINOPHILS PERCENT AUTO 1 % (0-6); Hematocrit 31.5 % (33.0-51.0); Hemoglobin 9.6 g/dL (11.5-16.0); IMMATURE GRAN PERCENT AUTO 1 % (0-1); LYMPHOCYTES ABSOLUTE AUTO 2.61 K/mm3 (0.84-5.20); LYMPHOCYTES PERCENT AUTO 21 % (21-46); MONOCYTES ABSOLUTE AUTO 1.18 K/mm3 (0.16-1.47); MONOCYTES PERCENT AUTO 9 % (4-13); Mean Corpuscular HGB 29.5 pg (26.0-34.0); Mean Corpuscular HGB Conc 30.5 g/dL (31.5-36.5); Mean Corpuscular Volume 97 fL (80-100); Mean Platelet Volume 10.1 fL (9.1-12.4); NEUTROPHILS PERCENT AUTO 68 % (41-73); NRBC ABSOLUTE 0.04 K/mm3 (0.00-0.02); NRBC Auto 0.3 /100 WBC (0.0-0.2); Platelet Count 257 K/mm3 (150-400); RDW Coefficient Variation 15.6 % (11.7-14.2); RDW Standard Deviation 54.3 fL (35.1-46.3); Red Blood Cell Count 3.25 M/mm3 (3.80-5.20)
[2019-10-07 05:21] LABS: Albumin/Globulin Ratio 0.8 (0.8-1.8); Bilirubin, Total 0.9 mg/dL (0.1-1.0); Bun/Creatinine Ratio 22.5 (12.0-20.0); Calcium, Blood 7.6 mg/dL (8.5-10.1); Creatinine, Blood 2.89 mg/dL (0.40-1.00); Globulin, Blood 3.6 g/dL (2.2-4.0); Magnesium, Blood 2.1 mg/dL (1.6-2.4); Phosphorus, Blood 6.8 mg/dL (2.5-4.9); Potassium, Blood 5.9 mmol/L (3.5-5.5); Total Protein, Blood 6.6 g/dL (6.4-8.2)
--- NOTE | 2019-10-07 14:53 | NUR ---
Pt. is doing well prayed for pt.
--- NOTE | 2019-10-07 19:23 | NUR ---
alert and orintate to self, abdm pain reduced when has bm, spoke to family, bsr shared with pt and noc shift
[2019-10-08 03:08] LABS: HBSAG SCREEN Negative (Negative); HEP A AB, IGM Negative (Negative); HEP B CORE AB, IGM Negative (Negative); HEP C VIRUS AB <0.1 (0.0-0.9)
--- NOTE | 2019-10-08 03:18 | NUR ---
SHIFT SUMMARY PATIENT HAD NO ACUTE CHANGES OBSERVED. AXOX 2-3 WITH CONFUSION. BEDREST. TAKES MEDICATION WHOLE IN APPLESAUCE. PIV REMAINS INTACT. ROLLER MAN REPORTS SB 58. ON 2L O2 NC BASELINE. VSS/AFEBRILE. DENIES PAIN, SOB, AND N/V. CALL LIGHT IN REACH. BED IN LOWEST POSITION. WILL CONTINUE TO MONITOR UNTIL DAY SHIFT NURSE ASSUMES CARE.
[2019-10-08 04:44] LABS: BASOPHILS ABSOLUTE AUTO 0.03 K/mm3 (0.00-0.23); BASOPHILS PERCENT AUTO 0 % (0-2); EOSINOPHILS PERCENT AUTO 1 % (0-6); Hematocrit 30.5 % (33.0-51.0); Hemoglobin 9.4 g/dL (11.5-16.0); IMMATURE GRAN ABSOLUTE AUTO 0.14 K/mm3 (0.00-0.10); IMMATURE GRAN PERCENT AUTO 2 % (0-1); LYMPHOCYTES PERCENT AUTO 16 % (21-46); MONOCYTES ABSOLUTE AUTO 0.63 K/mm3 (0.16-1.47); MONOCYTES PERCENT AUTO 8 % (4-13); Mean Corpuscular HGB 29.5 pg (26.0-34.0); Mean Corpuscular HGB Conc 30.8 g/dL (31.5-36.5); Mean Corpuscular Volume 96 fL (80-100); Mean Platelet Volume 10.2 fL (9.1-12.4); NEUTROPHILS ABSOLUTE AUTO 6.12 K/mm3 (1.96-9.15); NEUTROPHILS PERCENT AUTO 74 % (41-73); NRBC ABSOLUTE 0.04 K/mm3 (0.00-0.02); NRBC Auto 0.5 /100 WBC (0.0-0.2); Platelet Count 210 K/mm3 (150-400); RDW Coefficient Variation 15.4 % (11.7-14.2); RDW Standard Deviation 53.1 fL (35.1-46.3); Red Blood Cell Count 3.19 M/mm3 (3.80-5.20); White Blood Cell Count 8.32 K/mm3 (4.00-11.30)
[2019-10-08 05:09] LABS: C-REACTIVE PROTEIN, EXT RANGE 3.2 mg/dL (0.000-0.300)
[2019-10-08 05:10] LABS: Uric Acid, Blood 14.8 mg/dL (2.6-6.0)
[2019-10-08 05:11] LABS: Albumin, Blood 3.2 g/dL (3.4-5.0); Bilirubin, Total 1.3 mg/dL (0.1-1.0); Bun/Creatinine Ratio 27.1 (12.0-20.0); Calcium, Blood 7.6 mg/dL (8.5-10.1); Creatinine, Blood 3.14 mg/dL (0.40-1.00); Globulin, Blood 3.3 g/dL (2.2-4.0); Potassium, Blood 4.7 mmol/L (3.5-5.5); Total Protein, Blood 6.5 g/dL (6.4-8.2)
[2019-10-08 05:22] LABS: Albumin, Blood 3.2 g/dL (3.4-5.0); Anion Gap 11 mmol/L (6-16); Blood Urea Nitrogen 83 mg/dL (8-24); Bun/Creatinine Ratio 26.3 (12.0-20.0); CO2, Blood 26 mmol/L (21-32); Calcium, Blood 7.7 mg/dL (8.5-10.1); Chloride, Blood 100 mmol/L (98-108); Creatinine, Blood 3.16 mg/dL (0.40-1.00); Glomerular Filtration Rate 15 (60-); Glucose, Blood 87 mg/dL (70-99); Magnesium, Blood 2.3 mg/dL (1.6-2.4); Phosphorus, Blood 5.4 mg/dL (2.5-4.9); Potassium, Blood 4.8 mmol/L (3.5-5.5); Sodium, Blood 137 mmol/L (136-145)
--- NOTE | 2019-10-08 08:11 | NUR ---
BLADDER SCAN 269ML AFTER INCONT VOID. DR RINCON NOTIFED. STATE DO NOT PLACE HANSEN CATH. ATTEMPT TO COLLECT 24HR URINE IF ABLE, SEND WHAT CAN BE COLLECTED.
--- NOTE | 2019-10-08 13:43 | NUR ---
COVID19 PRECAUTIONS ORDERED/DR GARCIA. SWABS SENT TO LAB. PT HAS HAD CT CHEST, PHYTHER, CARDIAC & GI CONSULTS THIS AM. SOMETIME DURING MORNING TELE MX REPORT SHE WENT FROM SR TO AFIB. AM METOPROLOL GIVEN, SHE CONTINUES AFIB 110-120.
--- NOTE | 2019-10-08 14:01 | NUR ---
Pt is lying in bed resting and her nurse in the room attending to her needs
--- NOTE | 2019-10-08 14:32 | NUR ---
TELE REPORT 6 BEAT VTACH, DR GARCIA NOTIFIED. SHE CONTINUES AFIB 100-120.
--- NOTE | 2019-10-08 18:25 | NUR ---
summary PT HAS BEEN FATIGUED, WEAK T/O DAY. ORIENTED X 2-3, SHE HAS @ X'S MADE BIZZARE STATEMENTS, REQUIRING REORIENTATION. THIS AM SHE STATE DIFFICULTY BREATHING. BIOX 97% 2L, LUNGS DECREASED T/O. SCHEDULED IV LASIX GIVEN, BREATHING HAS IMPROVED SOMEWHAT, NO SOB @ REST. BNP 739 YESTERDAYS LABS. GFR 15, DR RINCON MANAGING, HE ORDERED 24HR URINE LABS HOWEVER PT IS INCONT, DR STATE DO NOT PLACE HANSEN CATH, COLLECT IF ABLE IF NOT WILL D/C, SO FAR UNABLE TO COLLECT, PT STATE UNABLE TO TELL WHEN SHE HAS TO GO. LFT'S ELEVATED, GI-DR REGAN CONSULTED. PT DAUGHTER CALLED TODAY w QUESTIONS/CONCERNS, DR RODRIGUEZ RETURNED CALL TO ADDRESS. PT WENT INTO AFIB THIS AM, RATE HAS BEEN APPROX 100-110, CARDIOLOGY-DR VIVAR CONSULTED.
--- NOTE | 2019-10-09 04:21 | NUR ---
SHIFT SUMMARY ASSUMED CARE OF PT AT 1900. PT IS A/O X4, DENIES N/T IN EXTREMITIES. HEART SOUNDS IRREGULAR, TELE SHOWS AFIB @70, DENIES CP AT THIS TIME. LUNG SOUNDS HAVE WHEEZES WITH FINE CRACKLES AT THE BASES, PT ON 2L NC, DENIES SOB AT THIS TIME. PT WAS INCONTINENT MOST OF THE NIGHT. PT IS 1P MINIMAL ASSIST TO COMMODE, BUT PT USUALLY URINATES BEFORE GETTING TO COMMODE, 24HR URINE CATCH IS IMPOSSIBLE TO COLLECT. NO ACUTE EVENTS DURING THE NIGHT, PT SLEPT MOST OF THE NIGHT XCEPT TO CALL WHEN INCONTINENT. CALL LIGHT IN REACH, BED IN LOWEST POSTION, WILL CONTINUE TO MONITOR UNTIL DAYSHIFT NURSE ARRIVES.
[2019-10-09 05:22] LABS: BASOPHILS ABSOLUTE AUTO 0.02 K/mm3 (0.00-0.23); BASOPHILS PERCENT AUTO 0 % (0-2); EOSINOPHILS ABSOLUTE AUTO 0.16 K/mm3 (0.00-0.68); EOSINOPHILS PERCENT AUTO 2 % (0-6); Hematocrit 29.2 % (33.0-51.0); Hemoglobin 8.8 g/dL (11.5-16.0); IMMATURE GRAN PERCENT AUTO 1 % (0-1); LYMPHOCYTES ABSOLUTE AUTO 1.47 K/mm3 (0.84-5.20); LYMPHOCYTES PERCENT AUTO 19 % (21-46); MONOCYTES ABSOLUTE AUTO 0.83 K/mm3 (0.16-1.47); MONOCYTES PERCENT AUTO 11 % (4-13); Mean Corpuscular HGB Conc 30.1 g/dL (31.5-36.5); Mean Corpuscular Volume 96 fL (80-100); Mean Platelet Volume 10.3 fL (9.1-12.4); NEUTROPHILS ABSOLUTE AUTO 5.02 K/mm3 (1.96-9.15); NEUTROPHILS PERCENT AUTO 66 % (41-73); NRBC ABSOLUTE 0.02 K/mm3 (0.00-0.02); NRBC Auto 0.3 /100 WBC (0.0-0.2); Platelet Count 192 K/mm3 (150-400); RDW Coefficient Variation 15.5 % (11.7-14.2); RDW Standard Deviation 53.2 fL (35.1-46.3); Red Blood Cell Count 3.03 M/mm3 (3.80-5.20)
[2019-10-09 05:37] LABS: International Normalized Ratio 1.29; Prothrombin Time Results 13.6 Sec (9.7-11.5)
[2019-10-09 06:09] LABS: Albumin, Blood 2.9 g/dL (3.4-5.0); Albumin/Globulin Ratio 0.9 (0.8-1.8); Bilirubin, Total 0.9 mg/dL (0.1-1.0); Bun/Creatinine Ratio 36.8 (12.0-20.0); Calcium, Blood 7.4 mg/dL (8.5-10.1); Creatinine, Blood 2.04 mg/dL (0.40-1.00); Globulin, Blood 3.2 g/dL (2.2-4.0); Potassium, Blood 3.8 mmol/L (3.5-5.5); Total Protein, Blood 6.1 g/dL (6.4-8.2)
[2019-10-09 11:12] LABS: Protein, Urine Quantitative 12.7 mg/dL (0.0-11.9)
--- NOTE | 2019-10-09 12:08 | NUR ---
Pt. lying in bed resting aurea olivier offered prayers
--- NOTE | 2019-10-09 12:09 | NUR ---
Pt. is lying in bed resting encouraged and offered spiritual support and prayers
--- NOTE | 2019-10-09 15:43 | NUR ---
SUMMARY PT IS A/O X3, MENTATION IMPROVED SOMEWHAT FROM PREVIOUS DAY, BRIGHTER AFFECT. SHE CONTINUES WEAK/FATIGUED. UNSTEADY GAIT WHEN UP. SHE HAS BEEN UP TO CHAIR FOR MEALS & UP TO BSC, 1 ASSIST. SMALL BM TODAY HOWEVER SHE IS INCONT OF URINE, UNABLE TO CONTROL. POOR APPETITE, LIVESTOCK TRADER CONSULTED w HER DAUGHTER TO IMPROVE MEAL PLAN. SHE CONTINUES AFIB/TELE RATE 100-110, LAST BP 117/83. LUNGS DECREASED w CRACKLES BASES, SHE CONTINUES TO STATE SOB @ X'S, USUALLY IMPROVES w REPOSITIONING OR SITTING UP, CHRONIC O2 @ 2-3L, CURRENTLY 99% 3L. HX GENITAL HEPES, SHE HAS SM OUTBREAK L GROIN, SCHEDULED ACYCLOVIR. DR GARCIA INITIATED R/O COVID19 YESTERDAY. START IV ANTIBX LEVAQUIN TODAY. WE CONTINUE TO AWAIT RESULTS OF TEST. DAUGHTER MATHEW HERE FROM [place], CARE MANAGERS AWARE WILL SEE OR SPEAK TO HER TOMORROW R/T D/C PLAN.
--- NOTE | 2019-10-10 03:43 | NUR ---
SHIFT SUMMARY ASSUMED CARE OF PT AT 1900. PT IS A/OX3 WITH SOME TIMES OF CONFUSION. HEART SOUNDS IRREGULAR, PT ON TELE SHOWING AFIB @ 118, DENIES CP BUT STATES THAT SOMETIMES HER HEART FLUTTERS AND SHE IS SOB. LUNG SOUNDS HAVE FINE CRACKLES AT THE BASES, PT ON 2L NC, SATURATIONS AT 99%, PT DENIES SOB AT THIS TIME. PT HAS BEEN INCONTINENT T/O THE SHIFT EXCEPT FOR ONCE. PT IS 1P SBA TO COMMODE. PT C/O HEARING A HOMELESS DRUNK PERSON OUTSIDE HER WINDOW, BUT WAS ORIENTED TO THE HOSPITAL AND HOW SHE HAD A NEIGHBORING PT WHO WAS COUGHING. NO ACUTE EVENTS DURING THE NIGHT, PT DID NOT SLEEP VERY MUCH DURING THE NIGHT. PT STATED THAT SHE DOESNT USUALLY SLEEP DURING THE NIGHT ANYWAYS. CALL LIGHT IN REACH, BED IN LOWEST POSITION, WILL CONTINUE TO MONITOR UNTIL DAYSHIFT NURSE ARRIVES.
[2019-10-10 05:10] LABS: HEP B CORE AB, TOT Negative (Negative)
[2019-10-10 05:18] LABS: BASOPHILS ABSOLUTE AUTO 0.02 K/mm3 (0.00-0.23); BASOPHILS PERCENT AUTO 0 % (0-2); EOSINOPHILS ABSOLUTE AUTO 0.14 K/mm3 (0.00-0.68); EOSINOPHILS PERCENT AUTO 2 % (0-6); Hematocrit 30.6 % (33.0-51.0); Hemoglobin 9.1 g/dL (11.5-16.0); IMMATURE GRAN ABSOLUTE AUTO 0.05 K/mm3 (0.00-0.10); IMMATURE GRAN PERCENT AUTO 1 % (0-1); LYMPHOCYTES ABSOLUTE AUTO 1.42 K/mm3 (0.84-5.20); LYMPHOCYTES PERCENT AUTO 19 % (21-46); MONOCYTES ABSOLUTE AUTO 1.02 K/mm3 (0.16-1.47); MONOCYTES PERCENT AUTO 13 % (4-13); Mean Corpuscular HGB 28.9 pg (26.0-34.0); Mean Corpuscular HGB Conc 29.7 g/dL (31.5-36.5); Mean Corpuscular Volume 97 fL (80-100); Mean Platelet Volume 10.4 fL (9.1-12.4); NEUTROPHILS ABSOLUTE AUTO 5.04 K/mm3 (1.96-9.15); NEUTROPHILS PERCENT AUTO 65 % (41-73); Platelet Count 191 K/mm3 (150-400); RDW Coefficient Variation 15.4 % (11.7-14.2); RDW Standard Deviation 52.8 fL (35.1-46.3); Red Blood Cell Count 3.15 M/mm3 (3.80-5.20); White Blood Cell Count 7.69 K/mm3 (4.00-11.30)
[2019-10-10 05:26] LABS: Albumin, Blood 2.9 g/dL (3.4-5.0); Albumin/Globulin Ratio 0.9 (0.8-1.8); Bilirubin, Total 0.8 mg/dL (0.1-1.0); Bun/Creatinine Ratio 38.7 (12.0-20.0); Calcium, Blood 7.7 mg/dL (8.5-10.1); Creatinine, Blood 1.42 mg/dL (0.40-1.00); Globulin, Blood 3.3 g/dL (2.2-4.0); Magnesium, Blood 2.2 mg/dL (1.6-2.4); Phosphorus, Blood 2.8 mg/dL (2.5-4.9); Potassium, Blood 3.7 mmol/L (3.5-5.5); Total Protein, Blood 6.2 g/dL (6.4-8.2)
--- NOTE | 2019-10-10 18:28 | NUR ---
SHIFT SUMMARY: NO ACUTE CHANGES TO REPORT THIS SHIFT. PT A&O; CALM AND COOPERATIVE WITH CARE. NO C/O PAIN OR NAUSEA THIS SHIFT. PT HX A-FIB; TELE D/C'd THIS SHIFT. CKD; NEPHROLOGY (DR RINCON) FOLLOWING. IV ABX D/C'd THIS SHIFT. DIURESIS CONTINUING. PT IN ISOLATION FOR R/O COVID-19; AWAITING RESULTS. WCTM.
--- NOTE | 2019-10-11 03:03 | NUR ---
SHIFT SUMMARY ASSUMED CARE OF PT AT 1900. PT IS A/O X4, DENIES N/T IN EXTREMITIES. PT C/O PAIN IN HER KNEES DUE TO RESTLESS LEG SYNDROME, HOSPITALIST NOTIFED AND MEDICATED WTIH ONE TIME DOSE OF TYLENOL. HEART SOUNDS IRREGULAR, HX AFIB, DENIES CP AT THIS TIME. FINE CRACKLES IN THE BASES OF THE L LUNG, PT CURRENTLY ON 2L NC, DENIES SOB AT THIS TIME. PT WAS BOTH CONTINENT AND INCONTINENT THIS TIME. PT IS SBA TO COMMODE WITH MINIMAL HELP. NO ACUTE EVENTS DURING THE NIGHT, PT HAD A HARD TIME SLEEPING TONIGHT, PT STATES SHE DOESNT SLEEP VERY WELL AT NIGHT, CALL LIGHT IN REACH, BED IN LOWEST POSTITION, WILL CONTINUE TO MONITOR UNTIL DAYSHIFT NURSE ARRIVES.
[2019-10-11 05:24] LABS: Hemoglobin 8.9 g/dL (11.5-16.0)
[2019-10-11 05:47] LABS: Anion Gap 5 mmol/L (6-16); Blood Urea Nitrogen 46 mg/dL (8-24); Bun/Creatinine Ratio 28.9 (12.0-20.0); CO2, Blood 34 mmol/L (21-32); Calcium, Blood 7.6 mg/dL (8.5-10.1); Chloride, Blood 103 mmol/L (98-108); Creatinine, Blood 1.59 mg/dL (0.40-1.00); Glomerular Filtration Rate 33 (60-); Glucose, Blood 97 mg/dL (70-99); Magnesium, Blood 2.2 mg/dL (1.6-2.4); Phosphorus, Blood 3.1 mg/dL (2.5-4.9); Potassium, Blood 3.8 mmol/L (3.5-5.5); Sodium, Blood 142 mmol/L (136-145)
--- NOTE | 2019-10-11 19:59 | NUR ---
SUMMARY- PT ALERT AND ORIENTED. INCONT OF URINE, CHANGED ATTENDS Q2. SKIN INTACT. TOLERATED BREAKFAST, HAD A BM THIS AM. BOT UP TO THE CHAIR FOR MEALS STEADY ON FEET WITH GOOD STRENGTH, SBA. HAD HEARTBURN AROUND LUNCH, MEDICATED WITH SIMETHACONE, DENIED NAUSEA. ATE A FEW BITES OF LUNCH AND HAD SUDDEN ONSET NAUSEA. MEDICATED WITH ZOFRAN WITH MIN RELEIF. CALLED DR BLUNT- TORSTEN FOR ONE TIME MAALOX PLUS WITH MOD RELEIF. ATE BITES FOR DINNER AND SIPPING ON FLUIDS. STILL NO APPETITE BUT DENIES HEARTBURN OR NAUSEA. PT STATES ANXIETY BEING IN ISOLATION. OFFERED EMOTIONAL SUPPERT FREQ. PT EPISODE X2 SHE STATED HER NEEDS WERN'T MET AND SHE WAS LEFT WET SINCE MORNING- THIS WAS NOT TRUE. RN CHANGED PT EVERY 1-2 HOURS THROUGHOUT THE DAY. PT MAY HAVE MEMORY PROBLEMS, BUT SEEMS TO HAVE BASELINE ANXIETY THAT CAUSES HER TO BE ACCUSITORY AND UPSET, BUT QUICKLY CALMS WITH ATTENTION AND SUPPORT. BP MARGONAL 1700, RETOOK AT 1830 AND HAD COME UP. GAVE METOPROLOL. PT STATED THIS PM ABOUT 1600 "I CANT BREATH" SATS WERE 98%, INCREASED O2 TO 4L. RN HEARD GOOD BREATH SOUNDS WITH FAINT CRACKLES IN BASES AND NO WHEEZE. ENC PT TO PRACTICE RELAXATION. PT RESTED A BIT AND HAD NO ADDIDTIONL COMPLAINTS OF TROUBLE BREATHING.
--- NOTE | 2019-10-11 22:57 | NUR ---
At 2225, this DISTRIBUTION SUPERINTENDENT rounded on 303 to make sure they were okay. The patient reported they were okay, and only wanted someone to visit with. i had told the patient, I was just checking on them and that I am unable to visit with them. The nurse is assigned primary care for this patient, and the DISTRIBUTION SUPERINTENDENT wont be doing any care due to mask shortages.
--- NOTE | 2019-10-12 04:40 | NUR ---
SHIFT SUMMARY ASSUMED CARE OF PT AT 1900. PT IS A/O X4, PT IS VERY ANXIOUS AND LONELY. PT CALLS EVERY HOUR ASKING FOR PAIN MEDICATION AND MEDICATION FOR HER GAS, PT WILL SAY THINGS LIKE "MAKE SURE YOU COME BACK SOON TO CHAT" AND " ITS SO LONELY IN THIS ROOM". PT WAS EDUCATED ABOUT PRESERVING MATERIALS FOR THE VIRUS AND ABOUT TRYING TO HAVE LITTLE CONTACT POSSIBLE TO SPREAD THE DISEASE, PT IGNORES PRECAUTIONS AND CALLS HOURLY. PT C/O NEASEA AND GAS ALL NIGHT, MEDICATED PER EMAR, PT COULD NOT GET COMFORTABLE AND WANTED TO WALK AROUND ROOM, SAT IN HER CHAIR AND WAS REPOSITIONED IN BED EVERY TWO HOURS. PT C/O PAIN, HOSPITALIST NOTIFIED AND PERSCRIBED MEDICATIONS. HEART SOUNDS IRREGULAR, PT HAS HX OF AFIB, DENIES CP. LUNG SOUNDS HAVE CRACKLES AT THE BASES, PT C/O SOB, SATURATIONS ABOVE 98%, PT ON 2L NC. PT DID NOT SLEEP DYRING THE NIGHT. PT IS VERY ANXIOUS AND LONELY AND WANTS TO GET OUT OF HER ROOM AND WALK IN THE [address]. CALL LIGHT IN REACH, BED IN LOWEST POSITION, WIOLL CONTINUE TO MONITOR UNTIL DAYSHIFT NURSE ARRIVES.
[2019-10-12 05:22] LABS: Hematocrit 34.3 % (33.0-51.0)
[2019-10-12 05:39] LABS: Albumin, Blood 3.2 g/dL (3.4-5.0); Albumin/Globulin Ratio 0.9 (0.8-1.8); Bilirubin, Direct 0.3 mg/dL (0.0-0.3); Bilirubin, Indirect 0.6 mg/dL (0.1-0.7); Bilirubin, Total 0.9 mg/dL (0.1-1.0); Bun/Creatinine Ratio 28.4 (12.0-20.0); Calcium, Blood 7.6 mg/dL (8.5-10.1); Creatinine, Blood 1.69 mg/dL (0.40-1.00); Globulin, Blood 3.6 g/dL (2.2-4.0); Magnesium, Blood 2.3 mg/dL (1.6-2.4); Potassium, Blood 4.2 mmol/L (3.5-5.5); Total Protein, Blood 6.8 g/dL (6.4-8.2)
--- NOTE | 2019-10-12 19:22 | NUR ---
SHIFT SUMMARY: NO ACUTE CHANGES TO REPORT THIS SHIFT. PT A&O; ANXIOUS R/T COVID-19 R/O; COOPERATIVE WITH CARE. O2 @ 3L; SOB c EXERTION. MEDICALLY STABLE FOR D/C; AWAITING COVID-19 RESULTS. REPORT GIVEN TO ONCOMING RN.
--- NOTE | 2019-10-12 22:43 | NUR ---
At 2235, this INTERNET DESIGNER rounded on 303. The patient was in no distress and was calmly laying in bed attempting to sleep. the patient had stated she was okay and did not need anything at the moment. During this shift the RN is primary care and the INTERNET DESIGNER is not able to enter the room due to mask shortages.
[2019-10-13 05:02] LABS: Hematocrit 31.9 % (33.0-51.0); Hemoglobin 9.6 g/dL (11.5-16.0)
--- NOTE | 2019-10-13 05:33 | NUR ---
PATTERNMAKER SUMMARY NO ACUTE CHANGES THIS SHIFT. PT AAOX2 WITH SOME CONFUSION/FORGETFULNESS. PT USES CALL LIGHT FREQUENTLY FOR THE SMALLEST THINGS EVEN THOUGH STAFF INSTRUCTED PT TO GROUP NEEDS TOGETHER DUE TO ISOLATION. PT HOPEFUL TO DC BACK TO [facility] LATER TODAY IF RESULTS OF COVID-19 TEST COME BACK NEGATIVE. VSS, WILL CONTINUE TO MONITOR.
[2019-10-13 05:39] LABS: Magnesium, Blood 2.4 mg/dL (1.6-2.4)
[2019-10-13 05:40] LABS: Albumin, Blood 3.3 g/dL (3.4-5.0); Anion Gap 12 mmol/L (6-16); Blood Urea Nitrogen 62 mg/dL (8-24); Bun/Creatinine Ratio 22.4 (12.0-20.0); CO2, Blood 27 mmol/L (21-32); Calcium, Blood 7.6 mg/dL (8.5-10.1); Chloride, Blood 98 mmol/L (98-108); Creatinine, Blood 2.77 mg/dL (0.40-1.00); Glomerular Filtration Rate 17 (60-); Glucose, Blood 123 mg/dL (70-99); Phosphorus, Blood 4.8 mg/dL (2.5-4.9); Potassium, Blood 4.4 mmol/L (3.5-5.5); Sodium, Blood 137 mmol/L (136-145)
[2019-10-13 08:07] LABS: ANTIGLOMERULAR BM AB 2 units (0-20)
[2019-10-13 11:07] LABS: M-SPIKE, % Not Observed % (Not Observed)
--- NOTE | 2019-10-13 13:30 | NUR ---
TOOK OVER PT CARE FROM KARLA PAGAN AT NOON. PT A&OX3, WITH SOME CONFUSED STATMENTS REORIENTED EASILY. COMFORTABLE LYING IN BED. TELE AFIB 109-140. PT DENIED C/O OF CP, SOB. TALKED TO DR LORD R/T PT CONTINUED C/O NAUSEA; NEW ORDER REC'D FOR COMPAZINE. DR MARIN IN TO SEE PT AND HAD CONVERSATION WITH DR LORD RE TREATMENT PLAN. COMPAZINE AND 2 TYLENOL GIVEN AT 1400 (FOR PT C/O LEG AND BACK PAIN). RETURNED TO PT ROOM AT 1445 TO FIND PT C/O CP, EXHIBITING SIGNS OF SOB, ANTONIO IN FACE COLOR, OXYGEN AT 2.5L, PT WAS TALKING TO ME AND AWAKE AND ALERT. CHARGE NURSE AND RAPID RESPONSE CALLED. PT TRANSFERRED TO ICU.
[2019-10-13 14:07] LABS: A/G RATIO 1.1 (0.7-1.7); ALBUMIN 2.8 g/dL (2.9-4.4); ALPHA-1-GLOBULIN 0.4 g/dL (0.0-0.4); ALPHA-2-GLOBULIN 0.8 g/dL (0.4-1.0); ANA DIRECT Negative (Negative); ANTIMYELOPEROXIDASE (MPO) ABS <9.0 U/mL (0.0-9.0); ANTIPROTEINASE 3 (PR-3) ABS <3.5 U/mL (0.0-3.5); ATYPICAL PANCA <1:20 titer (Neg:<1:20); CYTOPLASMIC (C-ANCA) <1:20 titer (Neg:<1:20); GAMMA GLOBULIN 0.5 g/dL (0.4-1.8); GLOBULIN, TOTAL 2.7 g/dL (2.2-3.9); IMMUNOGLOBULIN A, QN, SERUM 229 mg/dL (64-422); IMMUNOGLOBULIN G, QN, SERUM 499 mg/dL (700-1600); IMMUNOGLOBULIN M, QN, SERUM 64 mg/dL (26-217); M-SPIKE Not Observed g/dL (Not Observed); PERINUCLEAR (P-ANCA) <1:20 titer (Neg:<1:20); PROTEIN, TOTAL, SERUM 5.5 g/dL (6.0-8.5)
--- NOTE | 2019-10-13 15:11 | NUR ---
rapid response called family notified jassi spoke with famil pt remain dnr with somne limited treatmen
[2019-10-13 15:16] LABS: PCO2 Arterial 34.4 mmHg (35-45); PO2 Arterial 74.7 mmHg (80-100); pH Blood Arterial 7.22 (7.35-7.45)
[2019-10-13 15:29] LABS: Source, Urine Catheter
[2019-10-13 15:33] LABS: Blood, Urine 3+ (Neg); Glucose Qualitative, Urine Neg (Neg); Ketones, Urine Neg (Neg); Leukocyte Esterase, Urine 2+ (Neg); Nitrite, Urine Neg (Neg); Protein, Urine 2+ (Neg); Urobilinogen, Urine 1+ (Normal)
[2019-10-13 15:35] LABS: Appearance, Urine Clear (Clear); Bilirubin, Urine 1+ (Neg); Color, Urine Yellow (P-Yellow)
--- NOTE | 2019-10-13 15:40 | NUR ---
10/13/19 0800 ALERT AND ORIENTED TO QUESTIONED ASKED C/O NAUSEA AND HER HEART BEATING HARD HEART BEAT IN THE 110-140 . AND IRREGULAR . AM DOSES OF METROPORAL 100 GIVEN. WITHSIP OF WATER.. DR LORD CALLED TELE ORDERED AND PLACED .. WAS CALLED AGAIN WHEN AFIB WAS DETERMINED AT IRREGULAR RATE OF 110-150 IV LOPRESSOR WAS GIVEN IV 5 MG. PT WAS STILL CHEERFUL AND TALKATIVE ZOFRAN AND BEEN GIVEN ABOUT 845 WITH NO RELIEF FROM NAUSEA . SHE HAD BEEN UP AND DOWN TO THE CHAIR AND COMMODE A FEW TIMES THIS AM. I ONLY LET HER HAVE A FEW SIPS OF WATER DUE TO NAUSEA . RESPIRATIONS WERE EVEN AND UNLABORED. IV INFILTERED AND WAS RESTARTED AFTER FOUR ATTEMPTS. I GAVE REPORT TO ONCOMING NURSE LUIS. PT REAMIN CHEERFUL AND CO OPERATIVE. AND NAUSEAED. .
[2019-10-13 15:47] LABS: Amorphous Light (0-Heavy); Bacteria Mod /hpf; Mucus Light (0-Heavy); Squamous Epithelial Cells Few /hpf (Few)
--- NOTE | 2019-10-13 18:47 | NUR ---
SUMMARY Assumed care of pt upon arrival to ICU 10 at 1530. Bedside report received from medical floor RN, Roselia. Pt arrived wearing 6 LPM NC. Pt drowsy, but responsive to verbal stimulus. Pt placed on BiPAP 12/6 and 50% FiO2. Lungs coarse t/o with dim bases. Pt in airborne isolation for r/o COVID-19 and BiPAP. Pt often removes BiPAP. Does not wear NC after removing BiPAP. SpO2 90% or greater. Pt has been ST since arrival to unit with HR ranging between 100 and 110. Pt has daly catheter in place for strict measurement of fluid intake and output. Pt OOB once to sit in chair. Tolerated activity well. Pt's daughter updated by palliative care RN, Ariane. Dr Irby into see pt. Plan for pt to wear BiPAP as tolerated and check VBG at 1999. Pt has not tolerated BiPAP and has been taking it off. Dr Irby aware. Will continue to closely monitor pt until care handoff and bedside report with oncoming RN.
--- NOTE | 2019-10-13 19:00 | NUR ---
ASSUMPTION OF CARE: REPORT RECIEVED FROM EVELYNE PAGAN, PATIENT LETHARGIC BUT AROUSED TO TOUCH AND ANSWERING QUESTIONS APPROPRIATLY, INTERMITTENT FORGETFULNESS NOTED. VSS, SKIN C/D/I, NC AT 4L AND O2 SATURATION >90%. PER DAYSHIFT RN, MD GIRALDO AWARE THAT PATIENT WILL NOT KEEP BIPAP ON. MULTIPLE ALLERGIES NOTED.
[2019-10-13 20:27] LABS: Base Excess Venous -4.2 mmol/L; PCO2 Venous 42.4 mmHg (38-42); PO2 Venous 64.9 mmHg (38-42); pH Blood Venous 7.32 (7.34-7.37)
--- NOTE | 2019-10-13 23:17 | NUR ---
PATIENT EXPERIENCING FREQUENT DIARRHEA, RANGING FROM LIQUID TO SEMI FORMED. DEEPTHI CAMARA NOTIFIED, ORDERS RECIEVED.
[2019-10-14 03:45] LABS: Hematocrit 30.3 % (33.0-51.0); Hemoglobin 9.2 g/dL (11.5-16.0)
[2019-10-14 04:07] LABS: Albumin, Blood 3.2 g/dL (3.4-5.0); Anion Gap 14 mmol/L (6-16); Blood Urea Nitrogen 87 mg/dL (8-24); CO2, Blood 24 mmol/L (21-32); Calcium, Blood 7.2 mg/dL (8.5-10.1); Chloride, Blood 101 mmol/L (98-108); Creatinine, Blood 3.79 mg/dL (0.40-1.00); Glomerular Filtration Rate 12 (60-); Glucose, Blood 116 mg/dL (70-99); Magnesium, Blood 2.6 mg/dL (1.6-2.4); Sodium, Blood 139 mmol/L (136-145)
[2019-10-14 04:12] LABS: Phosphorus, Blood 8.3 mg/dL (2.5-4.9)
--- NOTE | 2019-10-14 05:52 | NUR ---
SHIFT SUMMARY: PATIENT C/O FEELING VERY HOT INTERMITTENTLY THIS SHIFT, PATIENT COOL AND CLAMMY, TEMPERATURE REMAINING APPROX 97 DEGREE F, SBP DROPS TO 76 AND PATIENT C/O ABDOMINAL PAIN/CRAMPING. PATIENT HAS SEVERAL BOUTS OF DIARRHEA. AFTER PATIENT HAS BOWEL MOVEMENT PATIENT SBP RETURNS TO APPROX 110 AND PATIENT IS LSEEPING WELL. MAP, ON AVERAGE, REMAINING ABOVE 65. PATIENT TURNING FREQUENTLY IN BED, BP CUFF DISLODGE WITH A LOW SBP READING. WHEN CUFF REAPPLIED PATIENT BP IMPROVED. PATIENT PHOS 8.3 THIS AM, MD RINCON NOTIFIED WITH ORDERS RECIEVED. PATIENT REFUSED BIPAP ALL SHIFT AND REMAINED ON 2-3L NC. BED LOW AND LOCKED WITH EXIT ALARM ON, CALL LIGHT WITHIN REACH AND PATIENT MONITORED CLOSELY.
--- NOTE | 2019-10-14 11:35 | NUR ---
SPOKE TO PT'S DAUGHTER MATHEW BY PHONE, GAVE UPDATE ON PT'S CONDITION, LAB RESULTS.
--- NOTE | 2019-10-14 12:25 | NUR ---
REASSESMENT: PT C/O 05/01 PAIN IN ABD, IS WRITHING IN BED. GIVEN ATIVAN 0.5 MG AND ZOFRAN 4 MG, BOTH IV, IS NOW COMFORTABLE. DR. GIRALDO CAME TO BEDSIDE FOR ASSESSMENT. EARLIER, PT TOLD THIS AUTHOR THAT SHE WANTED TO . "I WNAT TO GO. PLEASE TELL MY CHILDREN THAT I LOVE THEM." REPORTED THIS CONVERSATION TO DR. GIRALDO, WHO INSTRUCTED TO HAVE PALLIATIVE CARE ON BOARD. CARDIAC RHYTHM VARIES BETWEEN SR AND AFIB, RATE 60'S TO LOW 100'S. HANSEN DRAINING MINIMAL URINE. NO CHANGES IN SKIN, RESP STATUS. SMALL BM, NON FORMED BROWN, IS PASSING FLATUS.
--- NOTE | 2019-10-14 12:29 | NUR ---
Met pt. in bed resting offered prayers and gave spiritual support.
--- NOTE | 2019-10-14 14:45 | NUR ---
SPOKE WITH PATIENT'S DAUGHTER MATHEW BY PHONE. SHE STATED THAT, AFTER SPEAKING TO HER BROTHER AND OTHER FAMILY MEMBERS, THEY HAVE DECIDED TO HAVE VARINDER TRANSITIONED TO COMFORT CARE. MATHEW WILL MAKE ARRANGEMENTS TO TRAVEL TO [place] TO SEE HER MOTHER. SPOKE TO GUSTAVO SMITH IN PALLIATIVE CARE, WHO WILL PLACE COMFORT CARE ORDERS.
--- NOTE | 2019-10-14 16:42 | NUR ---
PT TRANSFERRED TO ROOM 356 FROM ICU 10 VIA HER BED. ALL BELONGINGS SENT WITH PT.
--- NOTE | 2019-10-14 16:45 | NUR ---
PT ARRIVED TO THE UNIT AND 1645, PROVIDED PAIN MEDICATION PER PT REQUEST. PROVIDED WATER. REPORT TAKEN FROM VISHAL PAGAN.
--- NOTE | 2019-10-14 20:17 | NUR ---
Called to see pt intensivit and nursing stating pt getting worse. Spoke with hospitaist and physican notified daughter. She spoke with rest of family and decide to make her comfort only pt transitioned to comfort care.
--- NOTE | 2019-10-15 03:40 | NUR ---
SHIFT SUMMARY PT HAS RESTED COMFORTABLY ALL NIGHT AND HAS NOT HAD ANY PAIN. RESP ARE EVEN WITHOUT APNEA. SHE RESPONDS TO VOICE AND TOUCH BUT QUICKLY FALLS BACK TO SLEEP. PT DAUGHTER HAS BEEN AT THE BEDSIDE WITH PT T/O THE NIGHT. SHE IS ATTENTIVE TO PAITENT AND HER CARE NEEDS. COMFORT ASSESSED T/O SHIFT. WHEN I ASK DAUGHTER IF THERE IS ANYTHING I CAN DO FOR PT OR HER DURING THE SHIFT MOST TIMES SHE DENIES. HANSEN IN PLACE WITH 250 MLS OUT. COVID RESULTS STILL PENDING AT THIS TIME. NO ACUTE CHANGES TO REPORT. BED IN LOWEST POSITION, CALL LIGHT WITHIN REACH. WILL CONTINUE TO MONITOR AND REPORT TO ONCOMING RN.
--- NOTE | 2019-10-15 09:29 | NUR ---
ATTENDS CLEAN, NO CHANGING NEEDED AT THIS TIME.
--- NOTE | 2019-10-15 14:07 | NUR ---
checked on patient and family. patient aslee family denies need for anything at this time
--- NOTE | 2019-10-15 14:22 | NUR ---
PATIENT HAS CLEAN BRIEF. NO CHANGE NEEDED.
--- NOTE | 2019-10-15 14:25 | NUR ---
Pt. inn bed resting requested for the sacrament of the sick amnd pt. is annointed and blessed
--- NOTE | 2019-10-15 14:46 | NUR ---
Initial spiritual care note: Mrs. Epstein appears sleepy, often drifting off to sleep mid-sentance. She also seems mentally muddled. I met with her dtr, Claribel, and her son, Tutu, at bedside. Claribel was tearful but appropriate. She is the only child that is local. I provided anticipatory bereavement primary substance abuse counselor and prayer to ggod effect. Father Lance has also performed Sacrement of the Sick ("Last rites.") I will remain available.
--- NOTE | 2019-10-15 16:12 | NUR ---
PT SLEEPING AT THIS TIME WITH FAMILY AT BEDSIDE
--- NOTE | 2019-10-15 18:35 | NUR ---
SHIFT SUMMARY PT SLEEPING THIS AFTERNOON BUT AWAKE FOR SUPPER. FAMILY AT BEDSIDE MOST OF THE TIME. REPOSITIONED NEEDED FOR COMFORT.
--- NOTE | 2019-10-16 04:12 | NUR ---
SHIFT SUMMARY: PT IS ALERT AND ORIENTED WITH SOME CONFUSION, COULD REMEMBER MY NAME FROM AT LEAST A WEEK AGO. FAMILY IN THE ROOM OVERNIGHT. PT IS ABLE TO TRANSFER WITH 1-2 ASSIST. PT SHOWED NO S/S FOR DISCOMFORT, DID NOT REQUIRE ANY MEDICATION. COVID19 RESULTS CAME BACK NEGATIVE, REMOVED ISOLATION. BED IN LOW POSITION, CALL LIGHT WITHIN REACH. WILL CONTINUE TO MONITOR.
--- NOTE | 2019-10-16 12:05 | NUR ---
Comfort Care Visit Pt resting in bed upon arrival and appears anxious as evidenced of constant moving of extremities. Pt's family at bedside and report Pt received Ativan to help with anxiety. Pt scheduled to discharge with hospice soon. Answered family's qustions and discussed concerns. Family expresses appreciation of visit. No other concerns reported at this time. Palliative Care will remain available.
--- NOTE | 2019-10-16 12:14 | NUR ---
Met pt lying in bed and family member in the room on visit,pt. may be going home today on hospice. Offered prayers andf encoragement.
--- NOTE | 2019-10-16 12:38 | NUR ---
PT DISCHARGING TO HOME WITH HOSPICE, WAITING FOR RIDE AT THIS TIME, DAUGHTER AT BEDSIDE.
--- NOTE | 2019-10-16 12:39 | NUR ---
DISCHARGE PT DISCHARGED HOME ON HOSPICE. [facility]. DAUGHTER FOLLOWING. DISCHARGE INSTRUCTIONS AND MEDICATIONS REVIEWED WITH DAUGHTER. SHE WILL COORDINATE MEDS WITH HOSPICE.
== END 2019-10-16 12:34 | disposition hospice, home (50) | DRG 291 ==
LOC: ER 16:37 → ICUW 19:23 → ICUE 19:23 → MEDS 19:23 → ICUE 20:18 → MEDS 10-05 17:33 → ICUW 10-13 15:30 → MEDS 10-14 16:21
PROVIDERS: Emergency Medicine; Hospitalist; Internal Medicine; Internal Medicine Endocrinology, Diabetes & Metabolism; Internal Medicine Nephrology; Internal Medicine Pulmonary Disease; ADMIT Internal Medicine
PROC: 04HL33Z Insertion of Infusion Device into Left Femoral Artery, Percutaneous Approach (ICD-10-PCS; principal; 2019-10-02)
DX: I13.0 Hypertensive heart and chronic kidney disease with heart failure and stage 1 through stage 4 chronic kidney disease, or unspecified chronic kidney disease (principal); I50.43 Acute on chronic combined systolic (congestive) and diastolic (congestive) heart failure; J96.01 Acute respiratory failure with hypoxia; J96.02 Acute respiratory failure with hypercapnia; R57.1 Hypovolemic shock; E87.2 Acidosis; N17.9 Acute kidney failure, unspecified; J44.1 Chronic obstructive pulmonary disease with (acute) exacerbation; N18.3 Chronic kidney disease, stage 3 (moderate); E11.22 Type 2 diabetes mellitus with diabetic chronic kidney disease; Z51.5 Encounter for palliative care; I48.0 Paroxysmal atrial fibrillation; I35.0 Nonrheumatic aortic (valve) stenosis; I34.0 Nonrheumatic mitral (valve) insufficiency; I27.20 Pulmonary hypertension, unspecified; I25.10 Atherosclerotic heart disease of native coronary artery without angina pectoris; Z66 Do not resuscitate; E83.39 Other disorders of phosphorus metabolism; D64.9 Anemia, unspecified; E87.5 Hyperkalemia; G47.33 Obstructive sleep apnea (adult) (pediatric); I71.2 Thoracic aortic aneurysm, without rupture; Z95.0 Presence of cardiac pacemaker; Z99.81 Dependence on supplemental oxygen; Z87.891 Personal history of nicotine dependence; Z86.73 Personal history of transient ischemic attack (TIA), and cerebral infarction without residual deficits; K21.9 Gastro-esophageal reflux disease without esophagitis; Z86.12 Personal history of poliomyelitis; K75.9 Inflammatory liver disease, unspecified
CPT/HCPCS: 36415; 36556; 36600; 51702; 71045; 71250; 74176; 76705; 80048; 80053; 80069; 80074; 81001; 81050; 82140; 82150; 82248; 82533; 82550; 82784; 82803; 82947; 83516; 83520; 83605; 83690; 83735; 83880; 84100; 84145; 84156; 84165; 84166; 84443; 84484; 84550; 85014; 85018; 85025; 85610; 85651; 86038; 86140; 86256; 86334; 86335; 86704; 86708; 87086; 93005; 93010; 93308; 93321; 94640; 94660; 94760; 94762; 96361-59; 96374-59; 97110; 97161; 97166; 97530; 97535; 99285-25; A9270; A9270-GY; C1751; C9113; J0780; J0881; J1940; J1956; J2060; J2405; J2765; J7030; J7040; J7060; U0002